=== PATIENT | male | born 1970 | race Caucasian/White ===

== ENCOUNTER 2023-05-04 16:05 | Emergency (ER) | payer OTHER, SELFPAY ==
[2023-05-04 16:18] VITALS: BP 124/88; RESP 16; O2SAT 98; BMI 34.2
--- NOTE | 2023-05-04 16:39 | ED_ITS ---
HPI - General Adult General Chief complaint: Extremity Pain/Injury, Upper Stated complaint: left hand sprain Time Seen by Provider: 05/04/23 16:11 History of Present Illness HPI narrative: This 53-year-old male comes in with left wrist pain and states that he has a pre-existing history of carpal tunnel syndrome. He was moving a couch recently and now has worsening pain in his left wrist. He states that it was keeping him awake last night. Related Data Previous Rx's Medication Instructions Recorded ketorolac 10 mg tablet 10 mg PO Q8H 5 days #15 tabs 05/04/23 methylprednisolone 4 mg tablets in See Rx Instructions PO .COMPLEX 05/04/23 a dose pack (Medrol (Efra)) #21 ea Allergies Allergy/AdvReac Type Severity Reaction Status Date / Time penicillin Allergy Intermediate Hives Uncoded 05/04/23 16:17 Review of Systems Status of ROS: Reports: 10 or more systems reviewed and unremarkable except as noted in History and below Narrative: Constitutional: No fevers, no weight gain or loss. Eyes: No discharge. No vision changes. HENT: No congestion, no sore throat, no ear pain. Cardiovascular: No chest pain, no palpitations. Respiratory: No shortness of breath, no wheezes, no cough. Gastrointestinal: No abdominal pain, no vomiting, no diarrhea. Genitourinary: No dysuria, no hematuria. Musculoskeletal: Decreased range of motion of his left wrist which is not new. No obvious swelling or new external sign of injury. Skin: No rashes, no pruritis. Neurological: No dizziness, weakness, sensory change, speech change. Endo/Heme/Allergies: No bruising or bleeding. No polydipsia. Pysch: no suicidality, no anxiety, no insomnia. All other systems reviewed and are negative. Exam Narrative: Exam Narrative: Constitutional: Well-developed, well-nourished, no acute distress. HEENT: Normocephalic, atraumatic. Neck: Normal range of motion. Nontender. Supple. Heart: Regular. No murmurs. Normal rate. Intact distal pulses. Lungs: Clear to auscultation. No chest discomfort. No wheezes, rhonchi, or rales. Abdomen: Normal bowel sounds. Nontender. No rebound tenderness. Genitalia: Deferred. Back: No midline tenderness. Normal range of motion. Extremities: Left wrist has decreased flexion and and extension. There is diffuse pain but no point tenderness, joint effusion, or sign of deformity. Skin: Intact. No rash. Warm. No erythema or pallor. Neurologic: No altered sensation. No weakness. Alert and oriented. Psychiatric: No suicidality. No anxiety or depression. No insomnia. Nursing notes and vitals signs are reviewed. Const: Vital Signs, click to edit/add: Vital Signs - 24 hr 05/04/23 16:18 Respiratory Rate 16 Blood Pressure [Le ft Upper Arm] 124/88 Pulse Oximetry 98 Oxygen Delivery Me thod Room Air Course Vital Signs Vital signs: Initial Vital Signs Respiratory Rate 16 05/04/23 16:18 Blood Pressure 124/88 05/04/23 16:18 Blood Pressure Mean 100 05/04/23 16:18 Blood Pressure Position Sitting 05/04/23 16:18 Pulse Oximetry 98 05/04/23 16:18 Oxygen Delivery Method Room Air 05/04/23 16:18 Vital Signs Respiratory Rate 16 05/04/23 16:18 Blood Pressure 124/88 05/04/23 16:18 Pulse Oximetry 98 05/04/23 16:18 Oxygen Delivery Method Room Air 05/04/23 16:18 Respiratory Rate 16 05/04/23 16:18 Blood Pressure 124/88 05/04/23 16:18 Pulse Oximetry 98 05/04/23 16:18 Oxygen Delivery Method Room Air 05/04/23 16:18 Medical Decision Making MDM Narrative Medical decision making narrative: This patient has worsening pain in his left wrist after moving a couch recently. He states there was no particular injury event or fall but this strenuous activity cause worsening pain over time. I did discuss the role of x-ray but indicated that this would not likely be helpful study at this time. Patient did receive a wrist splint and prescription for Toradol and Medrol Dosepak. I advised him to follow-up with orthopedic clinic for ongoing management if needed. Discharge Plan Discharge Clinical Impression: Sprain and strain of wrist Patient Disposition: Home, Self-Care Condition: Stable Additional Instructions: Wear wrist splint as needed. Take medication as needed and directed. Follow-up with orthopedic clinic if not improving. Prescriptions: New ketorolac 10 mg tablet 10 mg PO Q8H 5 Days Qty: 15 0RF methylprednisolone [Medrol (Efra)] 4 mg tablets,dose pack See Rx Instructions .ROUTE .COMPLEX Qty: 21 0RF Rx Instructions: orally per package directions Stand Alone Forms: [employer] Info Instructions
== END 2023-05-04 17:03 | disposition home or self-care (01) ==
PROVIDERS: Emergency Provider Emergency Medicine Emergency Medical Services
DX: S63.502A Unspecified sprain of left wrist, initial encounter (principal)
CPT/HCPCS: 29125; 99283; 99284

== ENCOUNTER 2024-05-15 21:42 | Emergency (ER) | payer OTHER, SELFPAY ==
--- OUTSIDE RECORDS SUMMARY | 2024-05-15 21:45 | XMS_ITS | Encounter Summary ---
Author Name [facility] [place] Organization [facility] [place] Address [address] [place] [address] Care Team Providers Care Biofuels Research Scientist Name Role Phone ALOK GUTIERREZ Primary Care Provider Unavailabl e Selected Encounter This section includes the information on record at OR for the Encounter. Date/Time Encounter Type Encounter Description Reason Provider Source Apr 06, 2024 10:30 AM CASE MANAGEMENT HUD/VASH INDIV ICD-10-CM Z59.9 Problem related to housing and economic circumstances, MISBAH Haskins [place] Encounter Template Text not used by [place] Assessments - Encounter Diagnoses This section includes the primary and secondary diagnoses documented for the Encounter. Date/Time Primary/Secondary Diagnosis Diagnosis Name Provider Source Apr 07, 2024 09:45 AM PRIMARY Problem related to housing and economic circumstances, MISBAH Haskins ([facility]) Social History: Smoking Status (Most current) and Tobacco Use (All prior to encounter date) This section includes the most current, and the historical, smoking and tobacco- related health factors from the [place] facility where the Encounter took place. Current Smoking Status This section includes the most current smoking, or tobacco-related health factor, from the [place] facility where the Encounter took place. Date/Time Current Smoking Status Comment Facil ity Oct 28, 2023 09:45 AM VA-TOBACCO DOESNT USE WI 30 MIN WAKEUP [facility] ([facility]) Tobacco Use History This section includes a history of the smoking, or tobacco-related health factors, that were collected on or before the date of the Encounter. The data comes from the [place] facility where the Encounter took place. Date/Time Smoking Status/Tobacco Use Comment F acility Oct 28, 2023 09:45 AM VA-TOBACCO USE 30 YEARS OR MORE [facility] ([facility]) Oct 28, 2023 09:45 AM VA-TOBACCO USE ADVICE [facility] ([facility]) Oct 28, 2023 09:45 AM VA-TOBACCO USE APPLICATIONS DEVELOPMENT CONSULTANT NO [facility] ([facility]) Oct 28, 2023 09:45 AM VA-TOBACCO USE MED NO [facility] ([facility]) Oct 28, 2023 09:45 AM VA-TOBACCO USER EVERY DAY [facility] ([facility]) October 01, 2022 11:00 AM VA-TOBACCO USE 30 YEARS OR MORE [facility] ([facility]) October 01, 2022 11:00 AM VA-TOBACCO USE ADVICE [facility] ([facility]) October 01, 2022 11:00 AM VA-TOBACCO USE APPLICATIONS DEVELOPMENT CONSULTANT NO [facility] ([facility]) October 01, 2022 11:00 AM VA-TOBACCO USE MED NO [facility] ([facility]) October 01, 2022 11:00 AM VA-TOBACCO USE WI 30 MIN OF WAKE UP [facility] ([facility]) October 01, 2022 11:00 AM VA-TOBACCO USER EVERY DAY [facility] ([facility]) Advance Directives: All historical and current Section Date Range: From patient's date of to the date document was created. This section includes ALL of a patient's completed or amended [place] Advance and Rescinded Directives. The entries below indicate that a directive exists for the patient, but an actual copy is not included with this document. The data comes from all [place] facilities. Date Advance Directives Provider Source Mar 05, 2024 ADVANCE DIRECTIVE DISCUSSION MISBAH SILVESTRE ([facility]) September 04, 2022 ADVANCE DIRECTIVE DISCUSSION DARVIN DEE ALL [facility] Encounter Notes: All associated encounter notes This section contains the clinical notes associated to the Encounter. 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 Completed documents were sent to YARED Russell. [place] stated no other concerns at this time. /goldie/ PRAFUL CORONEL, CA[facility] PIG IRON LOADER Signed: 04/07/2024 09:45 Receipt Acknowledged By: 04/17/2024 12:43 /es/ VIK DUTTON CLINICAL PIG IRON LOADER,MISBAH KIMBALL ([facility])
--- OUTSIDE RECORDS SUMMARY | 2024-05-15 21:45 | XMS_ITS | Encounter Summary ---
Author Name [facility] [place] Organization [facility] [place] Address [address] [place] [address] Care Team Providers Care Account Planner Name Role Phone ALOK GUTIERREZ Primary Care Provider Unavailabl e Selected Encounter This section includes the information on record at [place] for the Encounter. Date/Time Encounter Type Encounter Description Reason Pro vider Source Dec 02, 2023 11:00 AM [facility] Encounter Template Text not used by [place] Plan of Treatment: Future Appointments (+ 6 months) and Future Tests (+/- 45 days) The Plan of Treatment section includes future care activities for the patient from all [place] treatmentfacilities. This section includes future appointments and future orders which are active, pending or scheduled. Future Appointments This section includes appointments that were scheduled to occur 6 months from the date of the Encounter, up to a maximum of 20 appointments. The data comes from all [place] treatment facilities. Appointment Date/Time Appointment Type Appointme nt Facility Name Dec 06, 2023 11:27 AM AMBULATORY - NONE [facility] Active, Pending, and Scheduled Orders This section includes a listing of several types of active, pending, and scheduled orders, including clinic medications orders, diagnostic test orders, procedure orders and consult orders; where the start date of the order is 45 days before the date of the Encounter or 45 days after the date of theEncounter. The data comes from all [place] treatment facilities. Test Date/Time Test Type Test Details Facility Name Oct 28, 2023 12:00 AM Laboratory - Chemi stry Order OCCULT BLOOD FIT X1 SCREEN STOOL FECES SP ONCE [facility] ([facility]) Nov 25, 2023 12:00 AM Laboratory - Chemi stry Order BASIC METABOLIC PANEL+MG PLASMA SP ONCE [facility] Nov 25, 2023 12:00 AM Laboratory - Chemi stry Order BNP PLASMA SP ONCE [facility] Social History: Smoking Status (Most current) and Tobacco Use (All prior to encounter date) This section includes the most current, and the historical, smoking and tobacco- related health factors from the [place] facility where the Encounter took place. Current Smoking Status This section includes the most current smoking, or tobacco-related health factor, from the [place] facility where the Encounter took place. Date/Time Current Smoking Status Comment Facil ity Oct 28, 2023 09:45 AM VA-TOBACCO DOESNT USE WI 30 MIN WAKEUP [facility] ([facility]) Tobacco Use History This section includes a history of the smoking, or tobacco-related health factors, that were collected on or before the date of the Encounter. The data comes from the [place] facility where the Encounter took place. 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 This section includes ALL of a patient's completed or amended [place] Advance and Rescinded Directives. The entries below indicate that a directive exists for the patient, but an actual copy is not included with this document. The data comes from all [place] facilities. Date Advance Directives Provider Source Mar 05, 2024 ADVANCE DIRECTIVE DISCUSSION MISBAH SILVESTRE ([facility]) September 04, 2022 ADVANCE DIRECTIVE DISCUSSION DARVIN DEE [facility] Encounter Notes: All associated encounter notes This section contains the clinical notes associated to the Encounter. Date/Time Encounter Note(s) Provider Source Dec 02, 2023 11:17 AM NO SHOW NOTE: LOCAL TITLE: NO SHOW NOTE STANDARD TITLE: NO SHOW NOTE DATE OF NOTE: DEC 02, 2023@11:17 ENTRY DATE: DEC 02, 2023@11:17:31 AUTHOR: RANJIT WU EXP COSIGNER: URGENCY: STATUS: COMPLETED NO SHOW NOTE Has ADDENDA Patient did not appear for scheduled appointment. 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 No contact was made, voice message was left with contact information/return number. Additional phone attempts will be made by bond underwriter at a later time. /goldie/ VIK COOK CLINICAL RETIREMENT MANAGER Signed: 12/02/2023 11:19 Receipt Acknowledged By: 12/05/2023 09:37 /goldie/ [facility], [facility] 12/02/2023 15:47 /david LOVELACE 12/02/2023 ADDENDUM STATUS: COMPLETED Teachers' Aide made two additional phone attempts ([phone], [phone]) to writers phone, both were unsuccesful and voice messages were left. Teachers' Aide also attempted to contact veterans cell phone number listed in CPRS but cell phone is currently disconnected. /VIK Mitchell CLINICAL RETIREMENT MANAGER Signed: 12/02/2023 14:59 12/02/2023 ADDENDUM STATUS: COMPLETED NO SHOW LETTER SENT TO AT ADDRESS ON FILE /david LOVELACE Signed: 12/02/2023 15:48 12/03/2023 ADDENDUM STATUS: COMPLETED Attempted to schedule no show Contact attempt made to 2nd phone attempt: Telephone lm vmail for to call back to [phone] /goldie/ AMANDEEP LOVELACE Signed: 12/03/2023 14:18 12/04/2023 ADDENDUM STATUS: COMPLETED Attempted to schedule no show Contact attempt made to [place] 3rd phone attempt: Telephone lm vmail for to call back to [phone] /goldie/ AMANDEEP LOVELACE Signed: 12/04/2023 15:01 RANJIT WU ([facility])
--- OUTSIDE RECORDS SUMMARY | 2024-05-15 21:45 | XMS_ITS | Encounter Summary ---
Author Name [facility] [place] Organization [facility] [place] Address [address] [place] [address] Care Team Providers Care Personal Lines Agent Name Role Phone ALOK GUTIERREZ Primary Care Provider Unavailabl e Selected Encounter This section includes the information on record at [place] for the Encounter. Date/Time Encounter Type Encounter Description Reason Pro vider Source [facility] Encounter Template Text not used by [place] Advance Directives: All historical and current Section Date Range: From patient's date of to the date document was created. This section includes ALL of a patient's completed or amended [place] Advance and Rescinded Directives. The entries below indicate that a directive exists for the patient, but an actual copy is not included with this document. The data comes from all [place] facilities. Date Advance Directives Provider Source Mar 05, 2024 ADVANCE DIRECTIVE DISCUSSION MISBAH SILVESTRE ([facility]) September 04, 2022 ADVANCE DIRECTIVE DISCUSSION DARVIN DEE [facility]
--- OUTSIDE RECORDS SUMMARY | 2024-05-15 21:45 | XMS_ITS | Encounter Summary ---
Author Name [facility] [place] [facility] [place] [facility] [place] Address [address] [place] [address] Care Team Providers Care Press Operator Meat Name Role Phone ALOK GUTIERREZ Primary Care Provider Unavailabl e Selected Encounter This section includes the information on record at [place] for the Encounter. Date/Time Encounter Type Encounter Description Reason Pro vider Source Oct 28, 2023 09:16 PM Outpatient Encounter PRIMARY CARE/MEDICINE IHE Encounter Template Text not used by [place] Plan of Treatment: Future Appointments (+ 6 months) and Future Tests (+/- 45 days) The Plan of Treatment section includes future care activities for the patient from all [place] treatmentfacilities. This section includes future appointments and future orders which are active, pending or scheduled. Future Appointments This section includes appointments that were scheduled to occur 6 months from the date of the Encounter, up to a maximum of 20 appointments. The data comes from all [place] treatment facilities. Appointment Date/Time Appointment Type Appointme nt Facility Name Nov 17, 2023 11:00 AM AMBULATORY - PSYCHIATRY [facility] ([facility]) Nov 24, 2023 02:00 PM AMBULATORY - [facility]AB [facility] Dec 02, 2023 07:30 AM AMBULATORY - MEDICINE [facility] Dec 02, 2023 08:30 AM AMBULATORY - MEDICINE [facility] Dec 02, 2023 11:00 AM AMBULATORY - PSYCHIATRY [facility] ([facility]) Dec 06, 2023 11:27 AM [facility]ORY - NONE [facility] Active, Pending, and Scheduled Orders This section includes a listing of several types of active, pending, and scheduled orders, including clinic medications orders, diagnostic test orders, procedure orders and consult orders; where the start date of the order is 45 days before the date of the Encounter or 45 days after the date of theEncounter. The data comes from all [place] treatment facilities. Test Date/Time Test Type Test Details Facility Name Oct 28, 2023 12:00 AM Laboratory - Chemi stry Order OCCULT BLOOD FIT X1 SCREEN STOOL FECES SP ONCE [facility] ([facility]) Nov 25, 2023 12:00 AM Laboratory - Chemi stry Order BASIC METABOLIC PANEL+MG PLASMA SP ONCE [facility] Nov 25, 2023 12:00 AM Laboratory - Chemi stry Order BNP PLASMA SP ONCE [facility] Lab Results: +/- 30 days of the encounter This section includes the Chemistry and Hematology Lab Results on record with [place] for the patient. Radiology Reports and Pathology Reports are provided separately, in subsequent sections. Lab Results This section contains the Chemistry/Hematology Results that were resulted 30 days before or 30 daysafter the date of the Encounter. Date/Time Source Result Type Result - Unit Interpretation Reference Range Comment Oct 28, 2023 10:57 AM [facility]) HEMOGLOBIN A1C Specimen Type: BLOOD Comment: Values obtained from A1C measurements can vary. For typical A1C assays, a reported value of 7.0 could actually be between 6.7 and 7.3 if measured by a reference method. A reported value of 9.0 could actually be between 8.7 and 9.3. Ref: http://www.ngsp .org/CAPdata.as p Ordering Provider: ALOK GUTIERREZ Report Released Date/Time: Oct 28, 2023 10:52 AM Reporting Lab: [facility] [id number] Performing Lab: [facility] [id number] HEMOGLOBIN A1C 6.3 H 4.0-6.0 Oct 28, 2023 10:57 AM [facility]) LIPID PANEL,NON-FASTING Specimen Type: PLASMA Comment: Elevated triglyceride result from a non-fasting specimen should be interpreted with caution. A fasting panel is recommended for accurate triglycerides when trigs are >200 from a non-fasting specimen. Ordering Provider: ALOK GUTIERREZ Report Released Date/Time: Oct 28, 2023 10:52 AM Reporting Lab: [facility] [id number] Performing Lab: [facility] [id number] CHOLESTEROL 146 mg/dL <199 .HDL 38 mg/dL L >40 LDL CALCULATION 47 mg/dL <99 VLDL CALCULATION 61 mg/dL H <29 NON HDL CHOLESTEROL 108 mg/dL <129 TRIG(NON FASTING) 306 mg/dL H <149 Oct 28, 2023 10:57 AM [facility] ([facility]) TSH W/REFLEX TO FREE T4 Specimen Type: PLASMA Comment: Elevated triglyceride result from a non-fasting specimen should be interpreted with caution. A fasting panel is recommended for accurate triglycerides when trigs are >200 from a non-fasting specimen. Ordering Provider: ALOK GUTIERREZ Report Released Date/Time: Oct 28, 2023 10:52 AM Reporting Lab: [facility] [id number] Performing Lab: [facility] [id number] TSH 1.05 u[IU]/mL 0.35-4.94 Oct 28, 2023 10:57 AM [facility] ([facility]) BNP Specimen Type: PLASMA No comment entered. Ordering Provider: ALOK GUTIERREZ Report Released Date/Time: Oct 28, 2023 10:52 AM Reporting Lab: [facility] [id number] Performing Lab: [facility] [id number] BNP 24 pg/mL <99 Oct 28, 2023 10:57 AM [facility] ([facility]) COMPREHENSIVE METABOLIC PANEL+MG Specimen Type: PLASMA Comment: Elevated triglyceride result from a non-fasting specimen should be interpreted with caution. A fasting panel is recommended for accurate triglycerides when trigs are >200 from a non-fasting specimen. Ordering Provider: ALOK GUTIERREZ Report Released Date/Time: Oct 28, 2023 10:52 AM Reporting Lab: [facility] [id number] Performing Lab: [facility] [id number] CREATININE 1.1 mg/dL 0.7-1.2 UREA NITROGEN 15 mg/dL 8-26 GLUCOSE 124 mg/dL H 70-100 SODIUM 140 mmol/L 136-145 POTASSIUM 4.3 mmol/L 3.5-5.1 CHLORIDE 104 mmol/L 98-107 CO2 24 mmol/L 22-29 CALCIUM 9.8 mg/dL 8.4-10.2 PROTEIN,TOTAL 7.2 g/dL 6.0-8.3 ALBUMIN 4.4 g/dL 3.5-5.2 BILIRUBIN, TOTAL 0.7 mg/dL 0.2-1.2 MAGNESIUM 2.2 mg/dL 1.6-2.6 ANION GAP 12 mmol/L 5-15 ALKALINE PHOSPHATASE 109 U/L 40-150 ALT/SGPT 24 U/L <55 AST/SGOT 20 U/L <34 .CREAT EGFR(CKD-EPI) 81 >60 Oct 28, 2023 10:57 AM [facility] ([facility]) CBC & DIFF Specimen Type: BLOOD Comment: Automated Differential Performed Ordering Provider: ALOK GUTIERREZ Report Released Date/Time: Oct 28, 2023 10:52 AM Reporting Lab: [facility] [id number] Performing Lab: [facility] [id number] WBC 8.29 10*3/uL 4.0-11.0 RBC 6.34 10*6/uL H 4.6-6.2 HGB 19.9 g/dL H 13.5-17.9 HCT 57.1 H 41-54 MCV 90.1 fL 80-100 MCH 31.4 pg 27-33 MCHC 34.9 g/dL 32.0-37.5 PLT 262 10*3/uL 150-400 MPV 9.7 fL 7.4-10.4 NEUT 54.0 40.0-80.0 LYMPHS 33.4 15.0-45.0 MONO 9.0 2.0-12.0 EOSINO 2.4 0.0-6.0 BASO 0.8 0.0-2.0 RDW 12.7 11.5-14.5 ABS LYMPH 2.77 10*3/uL 1.0-4.0 ABS MONO 0.75 10*3/uL 0.1-1.0 ABS NEUT 4.47 10*3/uL 2.0-7.7 ABS EOS 0.20 10*3/uL 0-0.5 ABS BASO 0.07 10*3/uL 0-0.2 IG(META,MYELO,P RO) 0.4 ABS IMMATURE GRAN 0.03 10*3/uL 0-0.1 Vital Signs: All taken on the encounter date This section contains inpatient and outpatient Vital Signs collected on the date of the Encounter. Date/Time Temperature Pulse Blood Pressure Respiratory Rate SP02 Pain Height Weight Body Mass Index Source Oct 28, 2023 10:07 AM 96.8 77 115/72 16 95 6 71.063 251.2 35 [facility] ([facility]) Social History: Smoking Status (Most current) and Tobacco Use (All prior to encounter date) This section includes the most current, and the historical, smoking and tobacco- related health factors from the [place] facility where the Encounter took place. Current Smoking Status This section includes the most current smoking, or tobacco-related health factor, from the [place] facility where the Encounter took place. Date/Time Current Smoking Status Comment Facil ity Oct 28, 2023 09:45 AM VA-TOBACCO DOESNT USE WI 30 MIN WAKEUP [facility] ([facility]) Tobacco Use History This section includes a history of the smoking, or tobacco-related health factors, that were collected on or before the date of the Encounter. The data comes from the [place] facility where the Encounter took place. Date/Time Smoking Status/Tobacco Use Comment F acility Oct 28, 2023 09:45 AM VA-TOBACCO USE 30 YEARS OR MORE [facility] ([facility]) Oct 28, 2023 09:45 AM VA-TOBACCO USE ADVICE [facility] ([facility]) Oct 28, 2023 09:45 AM VA-TOBACCO USE POST FRAMER NO [facility] ([facility]) Oct 28, 2023 09:45 AM VA-TOBACCO USE MED NO [facility] ([facility]) Oct 28, 2023 09:45 AM VA-TOBACCO USER EVERY DAY [facility] ([facility]) October 01, 2022 11:00 AM VA-TOBACCO USE 30 YEARS OR MORE [facility] ([facility]) October 01, 2022 11:00 AM VA-TOBACCO USE ADVICE [facility] ([facility]) October 01, 2022 11:00 AM VA-TOBACCO USE POST FRAMER NO [facility] ([facility]) October 01, 2022 11:00 AM VA-TOBACCO USE MED NO [facility] ([facility]) October 01, 2022 11:00 AM VA-TOBACCO USE WI 30 MIN OF WAKE UP [facility] ([facility]) October 01, 2022 11:00 AM VA-TOBACCO USER EVERY DAY [facility] ([facility]) Advance Directives: All historical and current Section Date Range: From patient's date of to the date document was created. This section includes ALL of a patient's completed or amended [place] Advance and Rescinded Directives. The entries below indicate that a directive exists for the patient, but an actual copy is not included with this document. The data comes from all [place] facilities. Date Advance Directives Provider Source Mar 05, 2024 ADVANCE DIRECTIVE DISCUSSION [facility] ([facility]) September 04, 2022 ADVANCE DIRECTIVE DISCUSSION DARVIN DEE S [facility] Encounter Notes: All associated encounter notes This section contains the clinical notes associated to the Encounter. Date/Time Encounter Note(s) Provider Source Oct 28, 2023 09:16 PM LETTERS: LOCAL TITLE: FOLLOW UP RESULTS LETTER STANDARD TITLE: LETTERS DATE OF NOTE: OCT 28, 2023@21:16 ENTRY DATE: OCT 28, 2023@21:16:53 AUTHOR: ALOK GUTIERREZ COSIGNER: URGENCY: STATUS: COMPLETED [facility] [address] [place] [address] OCT 28, 2023 MAR[place] ANTONIO CHIRINOS [facility] [place] [address] [facility] [address] Dear [place]: You should be receiving another letter with the results of the tests you had done at the [facility]. I have reviewed the results of your recent testing. - Cholesterol Tests LDL CALCULATION 47 (10/28/23) (prefer less than 100) - Complete Blood Count (red/white blood cell counts and platelets) White count: WBC 8.29 (10/28/23) (normal is 4.0-11.0) Hemoglobin: HGB 19.9 H (10/28/23) (normal Male is 13.5-17.9; normal female is 11.5-16) Platelets: PLT 262 (10/28/23) (normal is 150-400) - Electrolytes including sodium and potassium SODIUM 140 (10/28/23) (normal is 137-144) POTASSIUM 4.3 (10/28/23) (normal is 3.5-5.1) CREATININE 1.1 (10/28/23) (normal male is 0.7-1.2; normal female is 0.5-1.0) UREA NITROGEN 15 (10/28/23) (normal male is 8-26; normal female is 7-20) EGFR (12/06) 07/18/2020@1539 103 CREATININE EGFR (CKD-EPI) 10/28/2023@1057 81 (normal is >/=60) CALCIUM 9.8 (10/28/23) (normal is 8.4-10.2) GLUCOSE 124 H (10/28/23) (normal is 70-105) MAGNESIUM 2.2 (10/28/23) (normal is 1.6-2.6) - Liver function Tests AST/SGOT 20 (10/28/23) (normal is 5-34) ALT/SGPT 24 (10/28/23) (normal is </= 55) ALBUMIN 4.4 (10/28/23) (normal is 3.4-5.0) ALK PHOSPHATASE 109 (10/28/23) (normal is 40-150) - Glycosylated Hemoglobin (good diabetic control if less than 7.0) HEMOGLOBIN A1C 6.3 H (10/28/23) (normal range is 4.0-6.0) - Thyroid Function: TSH 1.05 (10/28/23) (normal 0.3-5.0) If you have further questions or problems, please contact the call center at [phone] to speak with a nurse or leave me a message Sincerely, ALOK Hodge ([facility])
--- OUTSIDE RECORDS SUMMARY | 2024-05-15 21:45 | XMS_ITS | Encounter Summary ---
Author Name [facility] [place] Organization [facility] [place] Address [address] [place] [address] Care Team Providers Care Converter Operator Name Role Phone ALOK GUTIERREZ Primary Care Provider Unavailabl e Selected Encounter This section includes the information on record at [place] for the Encounter. Date/Time Encounter Type Encounter Description Reason Provider Source Oct 28, 2023 12:01 PM PSYTX W PT 30 MINUTES [facility] INDIV ICD-10-CM Z71.9 Counseling, unspecified RANJIT WU Angelina Encounter Template Text not used by [place] Assessments - Encounter Diagnoses This section includes the primary and secondary diagnoses documented for the Encounter. Date/Time Primary/Secondary Diagnosis Diagnosis Name Provider Source Oct 28, 2023 12:06 PM PRIMARY Counseling, unspecified RANJIT WU [facility] ([facility]) Plan of Treatment: Future Appointments (+ 6 months) and Future Tests (+/- 45 days) The Plan of Treatment section includes future care activities for the patient from all [place] treatmentfacilities. This section includes future appointments and future orders which are active, pending or scheduled. Future Appointments This section includes appointments that were scheduled to occur 6 months from the date of the Encounter, up to a maximum of 20 appointments. The data comes from all [place] treatment facilities. Appointment Date/Time Appointment Type Appointme nt Facility Name Nov 17, 2023 11:00 AM AMBULATORY - PSYCHIATRY [facility] ([facility]) Nov 24, 2023 02:00 PM AMBULATORY - REHAB MEDICIN E [facility] Dec 02, 2023 07:30 AM AMBULATORY - MEDICINE [facility] Dec 02, 2023 08:30 AM AMBULATORY - MEDICINE [facility] Dec 02, 2023 11:00 AM AMBULATORY - PSYCHIATRY [facility] ([facility]) Dec 06, 2023 11:27 AM AMBULATORY - NONE [facility] Active, Pending, and Scheduled Orders This section includes a listing of several types of active, pending, and scheduled orders, including clinic medications orders, diagnostic test orders, procedure orders and consult orders; where the start date of the order is 45 days before the date of the Encounter or 45 days after the date of theEncounter. The data comes from all [place] treatment facilities. Test Date/Time Test Type Test Details Facility Name Oct 28, 2023 12:00 AM Laboratory - Chemi stry Order OCCULT BLOOD FIT X1 SCREEN STOOL FECES SP ONCE [facility] ([facility]) Nov 25, 2023 12:00 AM Laboratory - Chemi stry Order BASIC METABOLIC PANEL+MG PLASMA SP ONCE [facility] Nov 25, 2023 12:00 AM Laboratory - Chemi stry Order BNP PLASMA SP ONCE [facility] Lab Results: +/- 30 days of the encounter This section includes the Chemistry and Hematology Lab Results on record with [place] for the patient. Radiology Reports and Pathology Reports are provided separately, in subsequent sections. Lab Results This section contains the Chemistry/Hematology Results that were resulted 30 days before or 30 daysafter the date of the Encounter. Date/Time Source Result Type Result - Unit Interpretation Reference Range Comment Oct 28, 2023 10:57 AM [facility] ([facility]) HEMOGLOBIN A1C Specimen Type: BLOOD Comment: Values [...] Oct 28, 2023 10:52 AM Reporting Lab: [facility] [id number] Performing Lab: [facility] [id number] HEMOGLOBIN A1C 6.3 H 4.0-6.0 Oct 28, 2023 10:57 AM [facility] ([facility]) TSH W/REFLEX TO FREE T4 Specimen Type: PLASMA Comment: Elevated triglyceride result from a non-fasting specimen should be interpreted with caution. A fasting panel is recommended for accurate triglycerides when trigs are >200 from a non-fasting specimen. Ordering Provider: ALOK GUTIERREZ Report Released Date/Time: Oct 28, 2023 10:52 AM Reporting Lab: [facility] [id number] Performing Lab: [facility] [id number] TSH 1.05 u[IU]/mL 0.35-4.94 Oct 28, 2023 10:57 AM [facility]) LIPID PANEL,NON-FASTING Specimen Type: PLASMA Comment: Elevated triglyceride result from a non-fasting specimen should be interpreted with caution. A fasting panel is recommended for accurate triglycerides when trigs are >200 from a non-fasting specimen. Ordering Provider: ALOK GUTIERREZ Report Released Date/Time: Oct 28, 2023 10:52 AM Reporting Lab: [facility] [id number] Performing Lab: [facility] [id number] CHOLESTEROL 146 mg/dL <199 .HDL 38 mg/dL L >40 LDL CALCULATION 47 mg/dL <99 VLDL CALCULATION 61 mg/dL H <29 NON HDL CHOLESTEROL 108 mg/dL <129 TRIG(NON FASTING) 306 mg/dL H <149 Oct 28, 2023 10:57 AM [facility] ([facility]) BNP Specimen Type: PLASMA No comment entered. Ordering Provider: ALOK GUTIERREZ Report Released Date/Time: Oct 28, 2023 10:52 AM Reporting Lab: [facility] [id number] Performing Lab: [facility] [id number] BNP 24 pg/mL <99 Oct 28, 2023 10:57 AM [facility] ([facility]) CBC & DIFF Specimen Type: BLOOD Comment: Automated Differential Performed Ordering Provider: ALOK GUTIERREZ Report Released Date/Time: Oct 28, 2023 10:52 AM Reporting Lab: [facility] [id number] Performing Lab: [facility] [id number] WBC 8.29 10*3/uL 4.0-11.0 RBC 6.34 10*6/uL [...] 0.4 ABS IMMATURE GRAN 0.03 10*3/uL 0-0.1 Oct 28, 2023 10:57 AM [facility] ([facility]) COMPREHENSIVE METABOLIC PANEL+MG Specimen Type: PLASMA Comment: Elevated triglyceride result from a non-fasting specimen should be interpreted with caution. A fasting panel is recommended for accurate triglycerides when trigs are >200 from a non-fasting specimen. Ordering Provider: ALOK GUTIERREZ Report Released Date/Time: Oct 28, 2023 10:52 AM Reporting Lab: [facility] [id number] Performing Lab: [facility] [address] CREATININE 1.1 mg/dL 0.7-1.2 UREA NITROGEN 15 [...] 20 U/L <34 .CREAT EGFR(CKD-EPI) 81 >60 Vital Signs: All taken on the encounter date This section contains inpatient and outpatient Vital Signs collected on the date of the Encounter. Date/Time Temperature Pulse Blood Pressure Respiratory Rate SP02 Pain Height Weight Body Mass Index Source Oct 28, 2023 10:07 AM 96.8 77 115/72 16 95 6 71.063 251.2 35 [facility] ([facility]) Social History: Smoking Status (Most current) and Tobacco Use (All prior to encounter date) This section includes the most current, and the historical, smoking and tobacco- related health factors from the [place] facility where the Encounter took place. Current Smoking Status This section includes the most current smoking, or tobacco-related health factor, from the [place] facility where the Encounter took place. Date/Time Current Smoking Status Comment Ramos itdanielle Oct 28, 2023 09:45 AM VA-TOBACCO DOESNT USE WI 30 MIN WAKEUP [facility] ([facility]) Tobacco Use History This section includes a history of the smoking, or tobacco-related health factors, that were collected on or before the date of the Encounter. The data comes from the [place] facility where the Encounter took place. Date/Time Smoking Status/Tobacco Use Comment F acility Oct 28, 2023 09:45 AM VA-TOBACCO USE 30 YEARS OR MORE [facility] ([facility]) Oct 28, 2023 09:45 AM VA-TOBACCO USE ADVICE [facility] ([facility]) Oct 28, 2023 09:45 AM VA-TOBACCO USE BUYER INTERN NO [facility] ([facility]) Oct 28, 2023 09:45 AM VA-TOBACCO USE MED NO [facility] ([facility]) Oct 28, 2023 09:45 AM VA-TOBACCO USER EVERY DAY [facility] ([facility]) October 01, 2022 11:00 AM VA-TOBACCO USE 30 YEARS OR MORE [facility] ([facility]) October 01, 2022 11:00 AM VA-TOBACCO USE ADVICE [facility] ([facility]) October 01, 2022 11:00 AM VA-TOBACCO USE BUYER INTERN NO [facility] ([facility]) October 01, 2022 11:00 AM VA-TOBACCO USE MED NO [facility] ([facility]) October 01, 2022 11:00 AM VA-TOBACCO USE WI 30 MIN OF WAKE UP [facility] ([facility]) October 01, 2022 11:00 AM VA-TOBACCO USER EVERY DAY [facility] ([facility]) Advance Directives: All historical and current Section Date Range: From patient's date of to the date document was created. This section includes ALL of a patient's completed or amended [place] Advance and Rescinded Directives. The entries below indicate that a directive exists for the patient, but an actual copy is not included with this document. The data comes from all [place] facilities. Date Advance Directives Provider Source Mar 05, 2024 ADVANCE DIRECTIVE DISCUSSION [facility] ([facility]) September 04, 2022 ADVANCE DIRECTIVE DISCUSSION DARVIN DEE [facility] Encounter Notes: All associated encounter notes This section contains the clinical notes associated to the Encounter. Date/Time Encounter Note(s) Provider Source Oct 28, 2023 12:02 PM [facility] NOTE: LOCAL TITLE: PRIMARY CARE-MH INTEGRATION TRIAGE STANDARD TITLE: MENTAL HEALTH [facility] M INTERDISCIPLINARY NOTE DATE OF NOTE: OCT 28, 2023@12:02 ENTRY DATE: OCT 28, 2023@12:02:04 AUTHOR: RANJIT WU EXP COSIGNER: URGENCY: STATUS: COMPLETED PC/MH Individual Handoff Note - Date of Service: 10/27/2024 Type of Service: Individual Length of Service: 16 Minutes Collateral contact: CPRS, PACT Client's Diagnosis: unspecified counseling Scope of Service/Major Themes/[place]aves Issues: The purpose of this encounter was to assess for emergent needs and safety concerns. A secondary goal was to determine the most appropriate treatment options within [facility] and/or community resources as indicated upon assessment. [place] was informed of [facility] program services to include; role of absence management consultant, length and time of visits, type of follow-up which might occur, documentation of discuss into the medical record, feedback to primary care provider and reporting obligations. Client's Response/Verbal Exchange: was a warm hand off from Primary Care Provider due to MH concerns and cognitive test. was seen today for a Primary Care appointment with PACT Team Rajesh. The completed MOCA with this loan underwriter. Result is submitted in CPRS for PCP. reports he is currently living in RV home with and wifes adopted brother (52 years old), who he described as handicap. reports he has had trouble with low and depressed mood. [place] reports cry spells, lack of energy (Due to heart problems), difficulty with focus, and guilt. Due to limited time, and loan underwriter could not complete full functional assessment. denied any immediate needs at this time or concerns with SI or HI. agreed to schedule a f/u appt with loan underwriter to complete functional assessment. was made aware of [facility] services, walk-in availability and provided with direct number to [facility] Healthcare Technician for future needs. Provider offered brief psychoeducation related to empirically supported treatments and [facility] services. [place] was alert and oriented to person, place, time. Mood was euthymic, affect was congruent. Speech was within normal limits, thought process was coherent and goal-directed. No delusions were elicited and there was no evidence of internal stimuli. [place] denied current suicidal ideation or homicidal ideation, plan and intent. Service Plan: 1. will follow-up with [facility]. RTC submitted for f/u. 2. Veterans care to be managed in Primary Care Clinic with support of [facility]. 3. was educated on ability to walk into the [facility] for non-urgent mental health and/or medical assistance from 8am to 4 PM.OR [place] directed to report to the nearest emergency room for urgent mental health or medical issues. 4. was educated on the Veterans Crisis Line for assistance with triaging mental health concerns and encouraged the use of [facility] emergency [facility] for crisis situations. /goldie/ [employer] Signed: 10/28/2023 12:06 RANJIT WU ([facility])
--- OUTSIDE RECORDS SUMMARY | 2024-05-15 21:45 | XMS_ITS | Encounter Summary ---
Author Name [facility] [place] [facility] [place] Address [address] [place] [address] Care Team Providers [facility] Technician Name Role Phone ALOK GUTIERREZ Primary Care Provider Unavailabl e Selected Encounter This section includes the information on record at [place] for the Encounter. Date/Time Encounter Type Encounter Description Reason Pro vider Source Nov 24, 2023 02:00 PM Outpatient Encounter NEUROLOGY I[facility] Encounter Template Text not used by [place] Plan of Treatment: Future Appointments (+ 6 months) and Future Tests (+/- 45 days) The Plan of Treatment section includes future care activities for the patient from all [place] treatmentfacilities. This section includes future appointments and future orders which are active, pending or scheduled. Future Appointments This section includes appointments that were scheduled to occur 6 months from the date of the Encounter, up to a maximum of 20 appointments. The data comes from all [place] treatment facilities. Appointment Date/Time Appointment Type Appointme nt Facility Name Dec 02, 2023 07:30 AM AMBULATORY - MEDICINE [facility] Dec 02, 2023 08:30 AM AMBULATORY - MEDICINE [facility] Dec 02, 2023 11:00 AM AMBULATORY - PSYCHIATRY [facility] ([facility]) Dec 06, 2023 11:27 AM AMBULATORY - NONE [facility] Active, Pending, and Scheduled Orders This section includes a listing of several types of active, pending, and scheduled orders, including clinic medications orders, diagnostic test orders, procedure orders and consult orders; where the start date of the order is 45 days before the date of the Encounter or 45 days after the date of theEncounter. The data comes from all [facility]. Test Date/Time Test Type Test Details Facility Name Oct 28, 2023 12:00 AM Laboratory - Chemi stry Order OCCULT BLOOD FIT X1 SCREEN STOOL FECES SP ONCE [facility]) Nov 25, 2023 12:00 AM Laboratory - Chemi stry Order BASIC METABOLIC PANEL+MG PLASMA SP ONCE [facility] Nov 25, 2023 12:00 AM Laboratory - Chemi stry Order BNP PLASMA SP ON[facility] Lab Results: +/- 30 days of the encounter This section includes the Chemistry and Hematology Lab Results on record with [place] for the patient. Radiology Reports and Pathology Reports are provided separately, in subsequent sections. Lab Results This section contains the Chemistry/Hematology Results that were resulted 30 days before or 30 daysafter the date of the Encounter. Date/Time Source Result Type Result - Unit Interpretation Reference Range Comment Oct 28, 2023 10:57 AM [facility]) HEMOGLOBIN A1C Specimen Type: BLOOD Comment: [...] Oct 28, 2023 10:52 AM Reporting Lab: [facility] [id number] Performing Lab: [facility] [id number] HEMOGLOBIN A1C 6.3 H 4.0-6.0 Oct 28, 2023 10:57 AM [facility] ([facility]) TSH W/REFLEX TO FREE T4 Specimen Type: PLASMA Comment: Elevated triglyceride result from a non-fasting specimen should be interpreted with caution. A fasting panel is recommended for accurate triglycerides when trigs are >200 from a non-fasting specimen. Ordering Provider: ALOK GUTIERREZ Report Released Date/Time: Oct 28, 2023 10:52 AM Reporting Lab: [facility] [id number] Performing Lab: [facility] [id number] TSH 1.05 u[IU]/mL 0.35-4.94 Oct 28, 2023 10:57 AM [facility] ([facility]) LIPID PANEL,NON-FASTING Specimen Type: PLASMA Comment: Elevated triglyceride result from a non-fasting specimen should be interpreted with caution. A fasting panel is recommended for accurate triglycerides when trigs are >200 from a non-fasting specimen. Ordering Provider: ALOK GUTIERREZ Report Released Date/Time: Oct 28, 2023 10:52 AM Reporting Lab: [facility] [id number] Performing Lab: [facility] [id number] CHOLESTEROL 146 mg/dL <199 .HDL 38 mg/dL L >40 LDL CALCULATION 47 mg/dL <99 VLDL CALCULATION 61 mg/dL H <29 NON HDL CHOLESTEROL 108 mg/dL <129 TRIG(NON FASTING) 306 mg/dL H <149 Oct 28, 2023 10:57 AM [facility] ([facility]) BNP Specimen Type: PLASMA No comment entered. Ordering Provider: ALOK GUTIERREZ Report Released Date/Time: Oct 28, 2023 10:52 AM Reporting Lab: [facility] [id number] Performing Lab: [facility] [id number] BNP 24 pg/mL <99 Oct 28, 2023 10:57 AM [facility] ([facility]) COMPREHENSIVE METABOLIC PANEL+MG Specimen Type: PLASMA Comment: Elevated triglyceride result from a non-fasting specimen should be interpreted with caution. A fasting panel is recommended for accurate triglycerides when trigs are >200 from a non-fasting specimen. Ordering Provider: ALOK GUTIERREZ Report Released Date/Time: Oct 28, 2023 10:52 AM Reporting Lab: [facility] [id number] Performing Lab: [facility] [id number] CREATININE 1.1 mg/dL 0.7-1.2 UREA NITROGEN 15 [...] 81 >60 Oct 28, 2023 10:57 AM [facility] ([facility]) CBC & DIFF Specimen Type: BLOOD Comment: Automated Differential Performed Ordering Provider: ALOK GUTIERREZ Report Released Date/Time: Oct 28, 2023 10:52 AM Reporting Lab: [facility] [id number] Performing Lab: [facility] [id number] WBC 8.29 10*3/uL 4.0-11.0 RBC 6.34 10*6/uL [...] 0.4 ABS IMMATURE GRAN 0.03 10*3/uL 0-0.1 Advance Directives: All historical and current Section Date Range: From patient's date of to the date document was created. This section includes ALL of a patient's completed or amended [place] Advance and Rescinded Directives. The entries below indicate that a directive exists for the patient, but an actual copy is not included with this document. The data comes from all [place] facilities. Date Advance Directives Provider Source Mar 05, 2024 ADVANCE DIRECTIVE DISCUSSION MISBA[facility] SILVESTRE ([facility]) September 04, 2022 ADVANCE DIRECTIVE DISCUSSION [facility] Encounter Notes: All associated encounter notes This section contains the clinical notes associated to the Encounter. Date/Time Encounter Note(s) Provider Source Nov 24, 2023 02:45 PM NO SHOW NOTE: LOCAL TITLE: NO SHOW/CANCELLATION CLINIC NOTE STANDARD TITLE: NO SHOW NOTE DATE OF NOTE: NOV 24, 2023@14:45 ENTRY DATE: NOV 24, 2023@14:45:14 AUTHOR: APOLINAR JIMENEZ EXP COSIGNER: URGENCY: STATUS: COMPLETED [place] not seen for scheduled appointment due to: No Show /goldie/ APOLINAR JIMENEZ Signed: 11/24/2023 14:46 APOLINAR JIMENEZ [facility]
--- OUTSIDE RECORDS SUMMARY | 2024-05-15 21:45 | XMS_ITS | Continuity of Care Document ---
Author Name [facility] Organization [facility] Care Team Providers Care Dynamo Tender Name Role Phone [facility] Unavailable Unavailable Problems Combined list of problems from Department of Defense and Veterans Affairs facilities. It does not include entries that were removed or entered in error. Problem Status Onset Date Problem Type Date of Resolution Comments Source CHF - Congestive Heart Failure ([facility] [id number]) Active Condition September 06, 2021 Entered By: INDERJIT NOWAK Comment: EF 30% , LV hypokinesis ECHO 08/30/21 [facility] ([facility]) HTN - Hypertension ([facility] [id number]) Active Condition [facility] ([facility]) Multiple premature ventricular complexes Active Condition [facility] Muscle fasciculation Active Condition Jul 18, 2020 Entered By: INDERJIT NOWAK Comment: lt side of face [facility] ([facility]) Nicotine dependence Active Condition [facility] ([facility]) Obesity Active Condition [facility] ([facility]) Sleep apnea Active Condition [facility] ([facility]) Thoracic outlet syndrome Active Condition September 06, 2021 Entered By: INDERJIT NOWAK Comment: Had DVT in rt upper extremity in 2012 treated with coumudin [facility] ([facility]) Tobacco use Active Condition Jul 18, 2020 Entered By: INDERJIT NOWAK Comment: 1 can /wk [facility] ([facility]) Varicose veins Active Condition September Entered By: INDERJIT NOWAK Comment: Rt upper extremity [facility] ([facility]) Vertebrobasilar artery syndrome Active Condition September 06, 2021 Entered By: INDERJIT NOWAK Comment: 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 Was recommended to get Botox inj. [facility] ([facility]) Diagnosis: ICD-10-CM Z72.0 Tobacco use Active Diagnosis [facility] ([facility]) Diagnosis: ICD-10-CM Z59.00 Homelessness unspecified Active Diagnosis [facility] ([facility]) Diagnosis: ICD-10-CM Z59.9 Problem related to housing and economic circumstances, unsp Active Diagnosis [facility] ([facility]) Diagnosis: ICD-10-CM F32.89 Other specified depressive episodes Active Diagnosis [facility] ([facility]) Diagnosis: ICD-10-CM Z71.9 Counseling, unspecified [facility] Diagnosis: ICD-10-CM Z00.00 Encntr for general adult medical exam w/o abnormal findings Active Diagnosis [facility] ([facility]) Diagnosis: ICD-10-CM I50.22 Chronic systolic (congestive) heart failure Active Diagnosis [facility] Diagnosis: ICD-10-CM Z13.6 Encounter for screening for cardiovascular disorders Active Diagnosis [facility] Diagnosis: ICD-10-CM I50.9 Heart failure, unspecified Active Diagnosis [facility] Diagnosis: ICD-10-CM I50.20 Unspecified systolic (congestive) heart failure Active Diagnosis [facility] Diagnosis: ICD-10-CM Z59.01 Sheltered homelessness Active Diagnosis [facility] Diagnosis: ICD-10-CM Z59.02 Unsheltered homelessness Active Diagnosis [facility] Diagnosis: ICD-10-CM F41.9 Anxiety disorder, unspecified Active Diagnosis [facility] Medications Combined list of outpatient medications from Department of Defense and Veterans Affairs facilities.Medications provided include 1) outpatient medications from the last 15 months, and 2) patient-reported medications. Medication Details Route Status Patient Instructions Prescription Expires Prescription Number Last Dispense Date Ordering Provider Order Date Order Qty Source ACETAMINOPH EN 500MG TAB TAKE TWO TABLETS BY MOUTH EVERY 8 HOURS NEEDED FOR SHOULDER PAIN *NOT TO EXCEED 4000MG IN 24 HOURS FROM ALL SOURCES* ORAL 10/02/2023 [id number] VIRA GUTIERREZ 2022 [address] [facility]) ASPIRIN 81MG TAB,CHEWABL E CHEW ONE TABLET BY MOUTH EVERY DAY FOR HEART DISEASE ORAL ACTIVE 09/01/2024 [id number] 4 ME CALLIE NGISTU A 2023 108 [place] [facility] ATOMOXETINE 40MG CAP TAKE ONE CAPSULE BY MOUTH EVERY DAY FOR ATTENTIO N ORAL ACTIVE 10/28/2024 [id number] VIRA GUTIERREZ 2023 30 [facility]) ATORVASTATI N CA 20MG TAB TAKE ONE TABLET BY MOUTH EVERY DAY FOR CHOLESTE ROL ORAL ACTIVE 10/17/2024 [id number] 4 VIRA GUTIERREZ 2023 90 [facility]) ATORVASTATI N CA 20MG TAB TAKE ONE TABLET BY MOUTH EVERY DAY FOR CHOLESTE ROL ORAL DISCONT INUED 10/02/2023 [id number] 4 VIRA GUTIERREZ E 2022 90 [facility]) EMPAGLIFLOZ IN 25MG TAB TAKE ONE-HALF TABLET BY MOUTH EVERY DAY FOR HEART FAILURE ORAL ACTIVE 06/25/2024 [id number] 4 [place] NGA A 2023 45 [facility] METOPROLOL SUCCINATE 200MG TAB,SA TAKE ONE TABLET BY MOUTH EVERY DAY FOR HEART FAILURE ORAL 04/17/2024 [id number] 4 [place] NGA A 2022 90 [facility] SACUBITRIL 49MG/VALSAR POLLOCK 51MG TAB TAKE 1 TABLET BY MOUTH TWICE A DAY FOR HEART FAILURE ORAL ACTIVE 10/08/2024 [id number] 4 VIRA GUTIERREZ E 2023 180 [facility]) SILDENAFIL CITRATE 25MG TAB TAKE ONE TABLET BY MOUTH ONCE NEEDED FOR ERECTILE DYSFUNCT ION ORAL ACTIVE 10/28/2024 [id number] 4 VIRA GUTIERREZ E 2023 18 [facility]) SPIRONOLACT ONE 25MG TAB TAKE TWO TABLETS BY MOUTH EVERY DAY FOR HEART FAILURE ORAL 12/13/2023 [id number] [place] NGA A 2022 180 [facility] TORSEMIDE 20MG TAB TAKE ONE TABLET BY MOUTH EVERY DAY FOR EXCESS FLUID ORAL ACTIVE 12/18/2024 [id number] 4 VIRA GUTIERREZ E 2023 90 [facility] TORSEMIDE 20MG TAB TAKE ONE TABLET BY MOUTH EVERY DAY FOR EXCESS FLUID ORAL DISCONT INUED 12/13/2023 [id number] ELIZABETH URBAN NGA A 2022 90 [facility] Allergies, Adverse Reactions, Alerts Combined list of allergies from Department of Defense and [facility] facilities. It does not include entries that were removed or entered in error. Substance Category Reaction Severity Reaction type Status Date Reported Comments Source CONTRAST MEDIA Propensity to adverse reactions to drug (finding) Lip swelling active 2 [facility] PENICILLIN Propensity to adverse reactions to drug (finding) Eruption active 2 [facility] Immunizations Combined list of available immunizations from the Department of Defense and Veterans Affairs facilities. Immunization Series Date Given Administered By Site Reaction Lot Number CVX Code Drug Audit Lead Status Comments Source TDAP 2016 115 complet ed [facility] TDAP 2010 115 complet ed [facility] TDAP 2006 115 complet ed [facility] Results Combined list of recent chemistry, hematology and other laboratory results from Department of Defense and Veterans Affairs, ranging from 15 months to all on record, depending upon the facility. Order Name Results Value Reference Range Date Interpretation Specimen Comments Source HEMOGLOBI N A1C HEMOGLOBIN A1C/HEMOGLO BIN.TOTAL IN BLOOD 6.3 4.0 - 6.0 10/27 H Specimen Type: BLOOD Comment: Values obtained from A1C measurement s can vary. For typical A1C assays, a reported value of 7.0 could actually be between 6.7 and 7.3 if measured by a reference method. A reported value of 9.0 could actually be between 8.7 and 9.3. Ref: http://www. ngsp.org/[place] Pdata.asp Ordering Provider: ALOK GUTIERREZ Report Released Date/Time: Oct 28, 2023 10:52 AM Reporting Lab: [facility] [phone] Performing Lab: [facility] [address] [facility]) TSH W/REFLEX TO FREE T4 THYROTROPIN [UNITS/VOLU ME] IN SERUM OR PLASMA 1.05 u[IU]/ mL 0.35 - 4.94 10/27 Specimen Type: PLASMA Comment: Elevated triglycerid e result from a non-fasting specimen should be interpreted with caution. A fasting panel is recommended for accurate triglycerid es when trigs are >200 from a non-fasting specimen. Ordering Provider: ALOK GUTIERREZ Report Released Date/Time: Oct 28, 2023 10:52 AM Reporting Lab: [facility] [phone] Performing Lab: [facility] [address] [facility] ([facility]) LIPID PANEL,NON -FASTING CHOLESTEROL [MASS/VOLUM E] IN SERUM OR PLASMA 146 mg/dL <199 - 199 10/27 Specimen Type: PLASMA Comment: Elevated triglycerid e result from a non-fasting specimen should be interpreted with caution. A fasting panel is recommended for accurate triglycerid es when trigs are >200 from a non-fasting specimen. Ordering Provider: ALOK GUTIERREZ Report Released Date/Time: Oct 28, 2023 10:52 AM Reporting Lab: [facility] [address] Performing Lab: [facility] [address] [facility] ([facility]) LIPID PANEL,NON -FASTING CHOLESTEROL IN HDL [MASS/VOLUM E] IN SERUM OR PLASMA 38 mg/dL 40 10/27 L Specimen Type: PLASMA Comment: Elevated triglycerid e result from a non-fasting specimen should be interpreted with caution. A fasting panel is recommended for accurate triglycerid es when trigs are >200 from a non-fasting specimen. Ordering Provider: ALOK GUTIERREZ Report Released Date/Time: Oct 28, 2023 10:52 AM Reporting Lab: [facility] [address] Performing Lab: [facility] [address] [facility] ([facility]) LIPID PANEL,NON -FASTING CHOLESTEROL IN LDL [MASS/VOLUM E] IN SERUM OR PLASMA BY CALCULATION 47 mg/dL <99 - 99 10/27 Specimen Type: PLASMA Comment: Elevated triglycerid e result from a non-fasting specimen should be interpreted with caution. A fasting panel is recommended for accurate triglycerid es when trigs are >200 from a non-fasting specimen. Ordering Provider: ALOK GUTIERREZ Report Released Date/Time: Oct 28, 2023 10:52 AM Reporting Lab: [facility] [phone] Performing Lab: [facility] [address] [facility] ([facility]) LIPID PANEL,NON -FASTING CHOLESTEROL IN VLDL [MASS/VOLUM E] IN SERUM OR PLASMA BY CALCULATION 61 mg/dL <29 - 29 10/27 H Specimen Type: PLASMA Comment: Elevated triglycerid e result from a non-fasting specimen should be interpreted with caution. A fasting panel is recommended for accurate triglycerid es when trigs are >200 from a non-fasting specimen. Ordering Provider: ALOK GUTIERREZ Report Released Date/Time: Oct 28, 2023 10:52 AM Reporting Lab: [address] Performing Lab: [address] ([facility]) LIPID PANEL,NON -FASTING CHOLESTEROL NON HDL [MASS/VOLUM E] IN SERUM OR PLASMA 108 mg/dL <129 - 129 10/27 Specimen Type: PLASMA Comment: Elevated triglycerid e result from a non-fasting specimen should be interpreted with caution. A fasting panel is recommended for accurate triglycerid es when trigs are >200 from a non-fasting specimen. Ordering Provider: ALOK GUTIERREZ Report Released Date/Time: Oct 28, 2023 10:52 AM Reporting Lab: [place] [phone] Performing Lab: [address] ([facility]) LIPID PANEL,NON -FASTING TRIGLYCERID E [MASS/VOLUM E] IN SERUM OR PLASMA 306 mg/dL <149 - 149 10/27 H Specimen Type: PLASMA Comment: Elevated triglycerid e result from a non-fasting specimen should be interpreted with caution. A fasting panel is recommended for accurate triglycerid es when trigs are >200 from a non-fasting specimen. Ordering Provider: ALOK GUTIERREZ Report Released Date/Time: Oct 28, 2023 10:52 AM Reporting Lab: [place] [phone] Performing Lab: [address] ([facility]) BNP NATRIURETIC PEPTIDE B [MASS/VOLUM E] IN SERUM OR PLASMA 24 pg/mL <99 - 99 10/27 Specimen Type: PLASMA No comment entered. Ordering Provider: ALOK GUTIERREZ Report Released Date/Time: Oct 28, 2023 10:52 AM Reporting Lab: [address] Performing Lab: [address] ([facility]) COMPREHEN SIVE METABOLIC PANEL+MG CREATININE [MASS/VOLUM E] IN SERUM OR PLASMA 1.1 mg/dL 0.7 - 1.2 10/27 Specimen Type: PLASMA Comment: Elevated triglycerid e result from a non-fasting specimen should be interpreted with caution. A fasting panel is recommended for accurate triglycerid es when trigs are >200 from a non-fasting specimen. Ordering Provider: ALOK GUTIERREZ Report Released Date/Time: Oct 28, 2023 10:52 AM Reporting Lab: [facility] [address] Performing Lab: [facility] [address] [facility] ([facility]) COMPREHEN SIVE METABOLIC PANEL+MG UREA NITROGEN [MASS/VOLUM E] IN SERUM OR PLASMA 15 mg/dL 8 - 26 10/27 Specimen Type: PLASMA Comment: Elevated triglycerid e result from a non-fasting specimen should be interpreted with caution. A fasting panel is recommended for accurate triglycerid es when trigs are >200 from a non-fasting specimen. Ordering Provider: ALOK GUTIERREZ Report Released Date/Time: Oct 28, 2023 10:52 AM Reporting Lab: [facility] [address] Performing Lab: [facility] [address] [facility] ([facility]) COMPREHEN SIVE METABOLIC PANEL+MG GLUCOSE [MASS/VOLUM E] IN SERUM OR PLASMA 124 mg/dL 70 - 100 10/27 H Specimen Type: PLASMA Comment: Elevated triglycerid e result from a non-fasting specimen should be interpreted with caution. A fasting panel is recommended for accurate triglycerid es when trigs are >200 from a non-fasting specimen. Ordering Provider: ALOK GUTIERREZ Report Released Date/Time: Oct 28, 2023 10:52 AM Reporting Lab: [facility] [address] Performing Lab: [facility] [address] [facility] ([facility]) COMPREHEN SIVE METABOLIC PANEL+MG SODIUM [MOLES/VOLU ME] IN SERUM OR PLASMA 140 mmol/L 136 - 145 10/27 Specimen Type: PLASMA Comment: Elevated triglycerid e result from a non-fasting specimen should be interpreted with caution. A fasting panel is recommended for accurate triglycerid es when trigs are >200 from a non-fasting specimen. Ordering Provider: ALOK GUTIERREZ Report Released Date/Time: Oct 28, 2023 10:52 AM Reporting Lab: [facility] [address] Performing Lab: [facility] [address] [facility] ([facility]) COMPREHEN SIVE METABOLIC PANEL+MG POTASSIUM [MOLES/VOLU ME] IN SERUM OR PLASMA 4.3 mmol/L 3.5 - 5.1 10/27 Specimen Type: PLASMA Comment: Elevated triglycerid e result from a non-fasting specimen should be interpreted with caution. A fasting panel is recommended for accurate triglycerid es when trigs are >200 from a non-fasting specimen. Ordering Provider: ALOK GUTIERREZ Report Released Date/Time: Oct 28, 2023 10:52 AM Reporting Lab: [facility] [address] Performing Lab: [facility] [address] [facility] ([facility]) COMPREHEN SIVE METABOLIC PANEL+MG CHLORIDE [MOLES/VOLU ME] IN SERUM OR PLASMA 104 mmol/L 98 - 107 10/27 Specimen Type: PLASMA Comment: Elevated triglycerid e result from a non-fasting specimen should be interpreted with caution. A fasting panel is recommended for accurate triglycerid es when trigs are >200 from a non-fasting specimen. Ordering Provider: ALOK GUTIERREZ Report Released Date/Time: Oct 28, 2023 10:52 AM Reporting Lab: [facility] [address] Performing Lab: [facility] [address] [facility] ([facility]) COMPREHEN SIVE METABOLIC PANEL+MG CARBON DIOXIDE, TOTAL [MOLES/VOLU ME] IN SERUM OR PLASMA 24 mmol/L 22 - 29 10/27 Specimen Type: PLASMA Comment: Elevated triglycerid e result from a non-fasting specimen should be interpreted with caution. A fasting panel is recommended for accurate triglycerid es when trigs are >200 from a non-fasting specimen. Ordering Provider: ALOK GUTIERREZ Report Released Date/Time: Oct 28, 2023 10:52 AM Reporting Lab: [facility] [address] Performing Lab: [facility] [address] [facility] ([facility]) COMPREHEN SIVE METABOLIC PANEL+MG CALCIUM [MASS/VOLUM E] IN SERUM OR PLASMA 9.8 mg/dL 8.4 - 10.2 10/27 Specimen Type: PLASMA Comment: Elevated triglycerid e result from a non-fasting specimen should be interpreted with caution. A fasting panel is recommended for accurate triglycerid es when trigs are >200 from a non-fasting specimen. Ordering Provider: ALOK GUTIERREZ Report Released Date/Time: Oct 28, 2023 10:52 AM Reporting Lab: [place] [phone] Performing Lab: [address] ([facility]) COMPREHEN SIVE METABOLIC PANEL+MG PROTEIN [MASS/VOLUM E] IN SERUM OR PLASMA 7.2 g/dL 6.0 - 8.3 10/27 Specimen Type: PLASMA Comment: Elevated triglycerid e result from a non-fasting specimen should be interpreted with caution. A fasting panel is recommended for accurate triglycerid es when trigs are >200 from a non-fasting specimen. Ordering Provider: ALOK GUTIERREZ Report Released Date/Time: Oct 28, 2023 10:52 AM Reporting Lab: [place] [phone] Performing Lab: [address] ([facility]) COMPREHEN SIVE METABOLIC PANEL+MG ALBUMIN [MASS/VOLUM E] IN SERUM OR PLASMA 4.4 g/dL 3.5 - 5.2 10/27 Specimen Type: PLASMA Comment: Elevated triglycerid e result from a non-fasting specimen should be interpreted with caution. A fasting panel is recommended for accurate triglycerid es when trigs are >200 from a non-fasting specimen. Ordering Provider: ALOK GUTIERREZ Report Released Date/Time: Oct 28, 2023 10:52 AM Reporting Lab: [place] [phone] Performing Lab: [address] ([facility]) COMPREHEN SIVE METABOLIC PANEL+MG BILIRUBIN.T OTAL [MASS/VOLUM E] IN SERUM OR PLASMA 0.7 mg/dL 0.2 - 1.2 10/27 Specimen Type: PLASMA Comment: Elevated triglycerid e result from a non-fasting specimen should be interpreted with caution. A fasting panel is recommended for accurate triglycerid es when trigs are >200 from a non-fasting specimen. Ordering Provider: ALOK GUTIERREZ Report Released Date/Time: Oct 28, 2023 10:52 AM Reporting Lab: [facility] [address] Performing Lab: [facility] [address] [facility] ([facility]) COMPREHEN SIVE METABOLIC PANEL+MG MAGNESIUM [MASS/VOLUM E] IN SERUM OR PLASMA 2.2 mg/dL 1.6 - 2.6 10/27 Specimen Type: PLASMA Comment: Elevated triglycerid e result from a non-fasting specimen should be interpreted with caution. A fasting panel is recommended for accurate triglycerid es when trigs are >200 from a non-fasting specimen. Ordering Provider: ALOK GUTIERREZ Report Released Date/Time: Oct 28, 2023 10:52 AM Reporting Lab: [facility] [address] Performing Lab: [facility] [address] [facility] ([facility]) COMPREHEN SIVE METABOLIC PANEL+MG ANION GAP IN SERUM OR PLASMA 12 mmol/L 5 - 15 10/27 Specimen Type: PLASMA Comment: Elevated triglycerid e result from a non-fasting specimen should be interpreted with caution. A fasting panel is recommended for accurate triglycerid es when trigs are >200 from a non-fasting specimen. Ordering Provider: ALOK GUTIERREZ Report Released Date/Time: Oct 28, 2023 10:52 AM Reporting Lab: [facility] [address] Performing Lab: [facility] [address] [facility] ([facility]) COMPREHEN SIVE METABOLIC PANEL+MG ALKALINE PHOSPHATASE [ENZYMATIC ACTIVITY/VO LUME] IN SERUM OR PLASMA 109 U/L 40 - 150 10/27 Specimen Type: PLASMA Comment: Elevated triglycerid e result from a non-fasting specimen should be interpreted with caution. A fasting panel is recommended for accurate triglycerid es when trigs are >200 from a non-fasting specimen. Ordering Provider: ALOK GUTIERREZ Report Released Date/Time: Oct 28, 2023 10:52 AM Reporting Lab: [facility] [address] Performing Lab: [facility] [address] [facility] ([facility]) COMPREHEN SIVE METABOLIC PANEL+MG ALANINE AMINOTRANSF ERASE [ENZYMATIC ACTIVITY/VO LUME] IN SERUM OR PLASMA 24 U/L <55 - 55 10/27 Specimen Type: PLASMA Comment: Elevated triglycerid e result from a non-fasting specimen should be interpreted with caution. A fasting panel is recommended for accurate triglycerid es when trigs are >200 from a non-fasting specimen. Ordering Provider: ALOK GUTIERREZ Report Released Date/Time: Oct 28, 2023 10:52 AM Reporting Lab: [facility] [address] Performing Lab: [facility] [address] [facility] ([facility]) COMPREHEN SIVE METABOLIC PANEL+MG ASPARTATE AMINOTRANSF ERASE [ENZYMATIC ACTIVITY/VO LUME] IN SERUM OR PLASMA 20 U/L <34 - 34 10/27 Specimen Type: PLASMA Comment: Elevated triglycerid e result from a non-fasting specimen should be interpreted with caution. A fasting panel is recommended for accurate triglycerid es when trigs are >200 from a non-fasting specimen. Ordering Provider: ALOK GUTIERREZ Report Released Date/Time: Oct 28, 2023 10:52 AM Reporting Lab: [facility] [address] Performing Lab: [facility] [address] [facility] ([facility]) COMPREHEN SIVE METABOLIC PANEL+MG GLOMERULAR FILTRATION RATE/1.73 SQ M.PREDICTED [VOLUME RATE/AREA] IN SERUM, PLASMA OR BLOOD BY CREATININE- BASED FORMULA (CKD-EPI 2020) 81 60 10/27 Specimen Type: PLASMA Comment: Elevated triglycerid e result from a non-fasting specimen should be interpreted with caution. A fasting panel is recommended for accurate triglycerid es when trigs are >200 from a non-fasting specimen. Ordering Provider: ALOK GUTIERREZ Report Released Date/Time: Oct 28, 2023 10:52 AM Reporting Lab: [facility] [address] Performing Lab: [facility] [address] [facility] ([facility]) CBC & DIFF LEUKOCYTES [#/VOLUME] IN BLOOD BY AUTOMATED COUNT 8.29 10*3/u L 4.0 - 11.0 10/27 Specimen Type: BLOOD Comment: Automated Differentia l Performed Ordering Provider: ALOK GUTIERREZ Report Released Date/Time: Oct 28, 2023 10:52 AM Reporting Lab: [facility] [address] Performing Lab: [facility] [address] [facility]) CBC & DIFF ERYTHROCYTE S [#/VOLUME] IN BLOOD BY AUTOMATED COUNT 6.34 10*6/u L 4.6 - 6.2 10/27 H Specimen Type: BLOOD Comment: Automated Differentia l Performed Ordering Provider: ALOK GUTIERREZ Report Released Date/Time: Oct 28, 2023 10:52 AM Reporting Lab: [facility] [address] Performing Lab: [facility] [address] [facility] ([facility]) CBC & DIFF HEMOGLOBIN [MASS/VOLUM E] IN BLOOD 19.9 g/dL 13.5 - 17.9 10/27 H Specimen Type: BLOOD Comment: Automated Differentia l Performed Ordering Provider: ALOK GUTIERREZ Report Released Date/Time: Oct 28, 2023 10:52 AM Reporting Lab: [facility] [address] Performing Lab: [facility] [address] [facility] ([facility]) CBC & DIFF HEMATOCRIT [VOLUME FRACTION] OF BLOOD BY AUTOMATED COUNT 57.1 41 - 54 10/27 H Specimen Type: BLOOD Comment: Automated Differentia l Performed Ordering Provider: ALOK GUTIERREZ Report Released Date/Time: Oct 28, 2023 10:52 AM Reporting Lab: [facility] [address] Performing Lab: [facility] [address] [facility] ([facility]) CBC & DIFF MCV [ENTITIC VOLUME] BY AUTOMATED COUNT 90.1 fL 80 - 100 10/27 Specimen Type: BLOOD Comment: Automated Differentia l Performed Ordering Provider: ALOK GUTIERREZ Report Released Date/Time: Oct 28, 2023 10:52 AM Reporting Lab: [facility] [address] Performing Lab: [facility] [address] [facility] ([facility]) CBC & DIFF MCH [ENTITIC MASS] BY AUTOMATED COUNT 31.4 pg 27 - 33 10/27 Specimen Type: BLOOD Comment: Automated Differentia l Performed Ordering Provider: ALOK GUTIERREZ Report Released Date/Time: Oct 28, 2023 10:52 AM Reporting Lab: [facility] [address] Performing Lab: [facility] [address] [facility] [facility] ([facility]) CBC & DIFF MCHC [MASS/VOLUM E] BY AUTOMATED COUNT 34.9 g/dL 32.0 - 37.5 10/27 Specimen Type: BLOOD Comment: Automated Differentia l Performed Ordering Provider: ALOK GUTIERREZ Report Released Date/Time: Oct 28, 2023 10:52 AM Reporting Lab: [facility] [address] Performing Lab: [facility] [address] [facility] [facility] ([facility]) CBC & DIFF PLATELETS [#/VOLUME] IN BLOOD BY AUTOMATED COUNT 262 10*3/u L 150 - 400 10/27 Specimen Type: BLOOD Comment: Automated Differentia l Performed Ordering Provider: ALOK GUTIERREZ Report Released Date/Time: Oct 28, 2023 10:52 AM Reporting Lab: [facility] [address] Performing Lab: [facility] [address] [place] [facility] (CB) CBC & DIFF PLATELET MEAN VOLUME [ENTITIC VOLUME] IN BLOOD BY AUTOMATED COUNT 9.7 fL 7.4 - 10.4 10/27 Specimen Type: BLOOD Comment: Automated Differentia l Performed Ordering Provider: ALOK GUTIERREZ Report Released Date/Time: Oct 28, 2023 10:52 AM Reporting Lab: [facility] [address] Performing Lab: [facility] [address] [facility] [facility] ([facility]) CBC & DIFF NEUTROPHILS /100 LEUKOCYTES IN BLOOD BY MANUAL COUNT 54.0 40.0 - 80.0 10/27 Specimen Type: BLOOD Comment: Automated Differentia l Performed Ordering Provider: ALOK GUTIERREZ Report Released Date/Time: Oct 28, 2023 10:52 AM Reporting Lab: [facility] [address] Performing Lab: [facility] [address] [facility] [facility] ([facility]) CBC & DIFF LYMPHOCYTES /100 LEUKOCYTES IN BLOOD BY MANUAL COUNT 33.4 15.0 - 45.0 10/27 Specimen Type: BLOOD Comment: Automated Differentia l Performed Ordering Provider: ALOK GUTIERREZ Report Released Date/Time: Oct 28, 2023 10:52 AM Reporting Lab: [facility] [address] Performing Lab: [facility] [address] [facility] [facility] ([facility]) CBC & DIFF MONOCYTES/1 00 LEUKOCYTES IN BLOOD BY AUTOMATED COUNT 9.0 2.0 - 12.0 10/27 Specimen Type: BLOOD Comment: Automated Differentia l Performed Ordering Provider: ALOK GUTIERREZ Report Released Date/Time: Oct 28, 2023 10:52 AM Reporting Lab: [facility] [address] Performing Lab: [facility] [phone] [place] [address] (CBOC) CBC & DIFF EOSINOPHILS /100 LEUKOCYTES IN BLOOD BY AUTOMATED COUNT 2.4 0.0 - 6.0 10/27 Specimen Type: BLOOD Comment: Automated Differentia l Performed Ordering Provider: ALOK GUTIERREZ Report Released Date/Time: Oct 28, 2023 10:52 AM Reporting Lab: [facility] [address] Performing Lab: [facility] [phone] [place] [address] (CBOC) CBC & DIFF BASOPHILS/1 00 LEUKOCYTES IN BLOOD BY MANUAL COUNT 0.8 0.0 - 2.0 10/27 Specimen Type: BLOOD Comment: Automated Differentia l Performed Ordering Provider: ALOK GUTIERREZ Report Released Date/Time: Oct 28, 2023 10:52 AM Reporting Lab: [facility] [address] Performing Lab: [facility] [address] [facility] ([facility]) CBC & DIFF ERYTHROCYTE DISTRIBUTIO N WIDTH [RATIO] BY AUTOMATED COUNT 12.7 11.5 - 14.5 10/27 Specimen Type: BLOOD Comment: Automated Differentia l Performed Ordering Provider: ALOK GUTIERREZ Report Released Date/Time: Oct 28, 2023 10:52 AM Reporting Lab: [facility] [address] Performing Lab: [facility] [phone] [place] [address] (CBOC) CBC & DIFF LYMPHOCYTES [#/VOLUME] IN BLOOD BY AUTOMATED COUNT 2.77 10*3/u L 1.0 - 4.0 10/27 Specimen Type: BLOOD Comment: Automated Differentia l Performed Ordering Provider: ALOK GUTIERREZ Report Released Date/Time: Oct 28, 2023 10:52 AM Reporting Lab: [facility] [address] Performing Lab: [facility] [address] [facility] ([facility]) CBC & DIFF MONOCYTES [#/VOLUME] IN BLOOD BY AUTOMATED COUNT 0.75 10*3/u L 0.1 - 1.0 10/27 Specimen Type: BLOOD Comment: Automated Differentia l Performed Ordering Provider: ALOK GUTIERREZ Report Released Date/Time: Oct 28, 2023 10:52 AM Reporting Lab: [facility] [address] Performing Lab: [facility] [address] [facility] [facility] ([facility]) CBC & DIFF NEUTROPHILS [#/VOLUME] IN BLOOD BY AUTOMATED COUNT 4.47 10*3/u L 2.0 - 7.7 10/27 Specimen Type: BLOOD Comment: Automated Differentia l Performed Ordering Provider: ALOK GUTIERREZ Report Released Date/Time: Oct 28, 2023 10:52 AM Reporting Lab: [facility] [address] Performing Lab: [facility] [address] [facility] [facility] ([facility]) CBC & DIFF EOSINOPHILS [#/VOLUME] IN BLOOD BY AUTOMATED COUNT 0.20 10*3/u L 0 - 0.5 10/27 Specimen Type: BLOOD Comment: Automated Differentia l Performed Ordering Provider: ALOK GUTIERREZ Report Released Date/Time: Oct 28, 2023 10:52 AM Reporting Lab: [facility] [address] Performing Lab: [facility] [address] [facility] [facility] ([facility]) CBC & DIFF BASOPHILS [#/VOLUME] IN BLOOD BY AUTOMATED COUNT 0.07 10*3/u L 0 - 0.2 10/27 Specimen Type: BLOOD Comment: Automated Differentia l Performed Ordering Provider: ALOK GUTIERREZ Report Released Date/Time: Oct 28, 2023 10:52 AM Reporting Lab: [facility] [address] Performing Lab: [facility] [address] [facility] ([facility]) CBC & DIFF IG(META,MYE LO,PRO) 0.4 10/27 Specimen Type: BLOOD Comment: Automated Differentia l Performed Ordering Provider: ALOK GUTIERREZ Report Released Date/Time: Oct 28, 2023 10:52 AM Reporting Lab: [facility] [address] Performing Lab: [facility] [address] [facility] [facility] ([facility]) CBC & DIFF IMMATURE GRANULOCYTE S [PRESENCE] IN BLOOD BY AUTOMATED COUNT 0.03 10*3/u L 0 - 0.1 10/27 Specimen Type: BLOOD Comment: Automated Differentia l Performed Ordering Provider: ALOK GUTIERREZ Report Released Date/Time: Oct 28, 2023 10:52 AM Reporting Lab: [facility] [address] Performing Lab: [facility] [phone] [place] [address] ([facility]) BNP NATRIURETIC PEPTIDE B [MASS/VOLUM E] IN SERUM OR PLASMA 85 pg/mL <99 - 99 08/27 Specimen Type: PLASMA No comment entered. Ordering Provider: XUAN URBAN Report Released Date/Time: Apr 17, 2023 10:39 AM Reporting Lab: [facility] [address] Performing Lab: [facility] [address] [facility] BASIC METABOLIC PANEL+MG CREATININE [MASS/VOLUM E] IN SERUM OR PLASMA 0.9 mg/dL 0.7 - 1.2 08/27 Specimen Type: PLASMA No comment entered. Ordering Provider: XUAN URBAN Report Released Date/Time: Apr 17, 2023 10:39 AM Reporting Lab: [facility] [address] Performing Lab: [facility] [address] [place] [facility] BASIC METABOLIC PANEL+MG UREA NITROGEN [MASS/VOLUM E] IN SERUM OR PLASMA 16 mg/dL 8 - 26 08/27 Specimen Type: PLASMA No comment entered. Ordering Provider: XUAN URBAN Report Released Date/Time: Apr 17, 2023 10:39 AM Reporting Lab: [facility] [address] Performing Lab: [facility] [address] [place] [facility] BASIC METABOLIC PANEL+MG GLUCOSE [MASS/VOLUM E] IN SERUM OR PLASMA 222 mg/dL 70 - 100 08/27 H Specimen Type: PLASMA No comment entered. Ordering Provider: XUAN URBAN Report Released Date/Time: Apr 17, 2023 10:39 AM Reporting Lab: [facility] [address] Performing Lab: [facility] [address] [place] [facility] BASIC METABOLIC PANEL+MG SODIUM [MOLES/VOLU ME] IN SERUM OR PLASMA 137 mmol/L 136 - 145 08/27 Specimen Type: PLASMA No comment entered. Ordering Provider: XUAN URBAN A Report Released Date/Time: Apr 17, 2023 10:39 AM Reporting Lab: [facility] [address] Performing Lab: [facility] [address] [place] [facility] BASIC METABOLIC PANEL+MG POTASSIUM [MOLES/VOLU ME] IN SERUM OR PLASMA 4.0 mmol/L 3.5 - 5.1 08/27 Specimen Type: PLASMA No comment entered. Ordering Provider: XUAN URBAN A Report Released Date/Time: Apr 17, 2023 10:39 AM Reporting Lab: [facility] [address] Performing Lab: [facility] [address] [place] [facility] BASIC METABOLIC PANEL+MG CHLORIDE [MOLES/VOLU ME] IN SERUM OR PLASMA 105 mmol/L 98 - 107 08/27 Specimen Type: PLASMA No comment entered. Ordering Provider: XUAN URBAN Report Released Date/Time: Apr 17, 2023 10:39 AM Reporting Lab: [facility] [address] Performing Lab: [facility] [address] [place] [facility] BASIC METABOLIC PANEL+MG CARBON DIOXIDE, TOTAL [MOLES/VOLU ME] IN SERUM OR PLASMA 23 mmol/L 22 - 29 08/27 Specimen Type: PLASMA No comment entered. Ordering Provider: XUAN URBAN A Report Released Date/Time: Apr 17, 2023 10:39 AM Reporting Lab: [facility] [address] Performing Lab: [facility] [address] [place] [facility] BASIC METABOLIC PANEL+MG CALCIUM [MASS/VOLUM E] IN SERUM OR PLASMA 9.3 mg/dL 8.4 - 10.2 08/27 Specimen Type: PLASMA No comment entered. Ordering Provider: XUAN URBAN Report Released Date/Time: Apr 17, 2023 10:39 AM Reporting Lab: [facility] [address] Performing Lab: [facility] [address] [place] [facility] BASIC METABOLIC PANEL+MG MAGNESIUM [MASS/VOLUM E] IN SERUM OR PLASMA 2.2 mg/dL 1.6 - 2.6 08/27 Specimen Type: PLASMA No comment entered. Ordering Provider: XUAN URBAN Report Released Date/Time: Apr 17, 2023 10:39 AM Reporting Lab: [facility] [address] Performing Lab: [facility] [address] [place] [facility] BASIC METABOLIC PANEL+MG ANION GAP IN SERUM OR PLASMA 9 mmol/L 5 - 15 08/27 Specimen Type: PLASMA No comment entered. Ordering Provider: XUAN URBAN Report Released Date/Time: Apr 17, 2023 10:39 AM Reporting Lab: [facility] [address] Performing Lab: [facility] [address] [place] [facility] BASIC METABOLIC PANEL+MG GLOMERULAR FILTRATION RATE/1.73 SQ M.PREDICTED [VOLUME RATE/AREA] IN SERUM, PLASMA OR BLOOD BY CREATININE- BASED FORMULA (CKD-EPI 2020) >90 60 08/27 Specimen Type: PLASMA No comment entered. Ordering Provider: XUAN URBAN Report Released Date/Time: Apr 17, 2023 10:39 AM Reporting Lab: [facility] [address] Performing Lab: [facility] [address] [place] [facility] CBC LEUKOCYTES [#/VOLUME] IN BLOOD BY AUTOMATED COUNT 6.83 10*3/u L 4.0 - 11.0 08/27 Specimen Type: BLOOD No comment entered. Ordering Provider: XUAN URBAN Report Released Date/Time: Apr 17, 2023 10:39 AM Reporting Lab: [facility] [address] Performing Lab: [facility] [address] [place] [facility] CBC ERYTHROCYTE S [#/VOLUME] IN BLOOD BY AUTOMATED COUNT 5.85 10*6/u L 4.6 - 6.2 08/27 Specimen Type: BLOOD No comment entered. Ordering Provider: XUAN URBAN Report Released Date/Time: Apr 17, 2023 10:39 AM Reporting Lab: [facility] [address] Performing Lab: [facility] [address] [place] [facility] CBC HEMOGLOBIN [MASS/VOLUM E] IN BLOOD 18.7 g/dL 13.5 - 17.9 08/27 H Specimen Type: BLOOD No comment entered. Ordering Provider: XUAN URBAN Report Released Date/Time: Apr 17, 2023 10:39 AM Reporting Lab: [facility] [address] Performing Lab: [facility] [address] [place] [facility] CBC HEMATOCRIT [VOLUME FRACTION] OF BLOOD BY AUTOMATED COUNT 52.4 41 - 54 08/27 Specimen Type: BLOOD No comment entered. Ordering Provider: XUAN URBAN Report Released Date/Time: Apr 17, 2023 10:39 AM Reporting Lab: [facility] [address] Performing Lab: [facility] [address] [place] [facility] CBC MCV [ENTITIC VOLUME] BY AUTOMATED COUNT 89.6 fL 80 - 100 08/27 Specimen Type: BLOOD No comment entered. Ordering Provider: XUAN URBAN Report Released Date/Time: Apr 17, 2023 10:39 AM Reporting Lab: [facility] [address] Performing Lab: [facility] [address] [place] [facility] CBC MCH [ENTITIC MASS] BY AUTOMATED COUNT 32.0 pg 27 - 33 08/27 Specimen Type: BLOOD No comment entered. Ordering Provider: XUAN URBAN Report Released Date/Time: Apr 17, 2023 10:39 AM Reporting Lab: [facility] [address] Performing Lab: [facility] [address] [place] [facility] CBC MCHC [MASS/VOLUM E] BY AUTOMATED COUNT 35.7 g/dL 32.0 - 37.5 08/27 Specimen Type: BLOOD No comment entered. Ordering Provider: XUAN URBAN Report Released Date/Time: Apr 17, 2023 10:39 AM Reporting Lab: [facility] [address] Performing Lab: [facility] [address] [facility] CBC PLATELETS [#/VOLUME] IN BLOOD BY AUTOMATED COUNT 216 10*3/u L 150 - 400 08/27 Specimen Type: BLOOD No comment entered. Ordering Provider: XUAN URBAN Report Released Date/Time: Apr 17, 2023 10:39 AM Reporting Lab: [facility] [address] Performing Lab: [facility] [address] [facility] CBC PLATELET MEAN VOLUME [ENTITIC VOLUME] IN BLOOD BY AUTOMATED COUNT 9.4 fL 7.4 - 10.4 08/27 Specimen Type: BLOOD No comment entered. Ordering Provider: XUAN URBAN Report Released Date/Time: Apr 17, 2023 10:39 AM Reporting Lab: [facility] [address] Performing Lab: [facility] [address] [facility] CBC ERYTHROCYTE DISTRIBUTIO N WIDTH [RATIO] BY AUTOMATED COUNT 12.9 11.5 - 14.5 08/27 Specimen Type: BLOOD No comment entered. Ordering Provider: XUAN URBAN Report Released Date/Time: Apr 17, 2023 10:39 AM Reporting Lab: [facility] [address] Performing Lab: [facility] [address] [facility] BNP NATRIURETIC PEPTIDE B [MASS/VOLUM E] IN SERUM OR PLASMA 54 pg/mL <99 - 99 12/12 Specimen Type: PLASMA No comment entered. Ordering Provider: XUAN URBAN Report Released Date/Time: Aug 20, 2022 10:51 AM Reporting Lab: [facility] [address] Performing Lab: [facility] [address] [facility] [address] [facility] Vital Signs Combined list of inpatient and outpatient Vital Signs from Department of Defense and Veterans Affairs, ranging from 12 months to all on record, depending upon the facility. Vital Sign Value Date Comments Source SYSTOLIC BLOOD PRESSURE 115 10/28/2023 10:07:57 [facility] ([facility]) DIASTOLIC BLOOD PRESSURE 72 10/28/2023 10:07:57 [facility] ([facility]) PULSE OXIMETRY 95 10/28/2023 10:07:57 [place] ([facility]) WEIGHT 251.2 10/28/2023 10:07:57 [facility] ([facility]) BMI 35kg/m2 10/28/2023 10:07:57 [facility] ([facility]) PAIN 6 10/28/2023 10:07:57 [facility] ([facility]) HEIGHT 71.063 10/28/2023 10:07:57 [facility] ([facility]) TEMPERATURE 96.8 10/28/2023 10:07:57 [facility] ([facility]) PULSE 77 10/28/2023 10:07:57 [facility] ([facility]) RESPIRATION 16 10/28/2023 10:07:57 [facility] ([facility]) SYSTOLIC BLOOD PRESSURE 138 08/28/2023 09:47:57 [facility] DIASTOLIC BLOOD PRESSURE 89 08/28/2023 09:47:57 [facility] PULSE OXIMETRY 95 08/28/2023 09:47:[address] [facility] WEIGHT 256.8 08/28/2023 09:47:57 [facility] BMI 36kg/m2 08/28/2023 09:47:57 [facility] PAIN 0 08/28/2023 09:47:57 [facility] PULSE 80 08/28/2023 09:47:57 [facility] RESPIRATION 18 08/28/2023 09:47:57 MINNicole [facility] Encounters Combined list of: 1) Encounters from Department of Veterans Affairs facilities going back up to thelast 18 months. 2) Encounters from the Department of Defense facilities going back up to 280 months. Location Location Details Encounter Type Encounter Number Reason For Visit Attending Provider ADM Date DC Date Status Disposition Source [place] [facility] [place] [facility] PRO PHONE CALL 5-10 MIN [id number] Diagnos is: ICD-10- CM F41.9 Anxiety disorde r, unspeci fied
DOMITILA TILLEY IEL J 11/[facility] Outpatient Encounter [id number] 11/[facility] Outpatient Encounter [id number] ADE LEZAMA AHAT 11/[facility] HC PRO PHONE CALL 5-10 MIN [id number] Diagnos is: ICD-10- CM F41.9 Anxiety disorde r, unspeci fied
DOMITILA TILLEY IEL J 11/[facility] Outpatient Encounter [id number] 11/29 [facility] CASE MANAGEMENT [id number] Diagnos is: ICD-10- CM F41.9 Anxiety disorde r, unspeci fied
DOMITILA TILLEY IEL J 12/05 [facility] IS [facility] ELECTROCAR DIOGRAM COMPLETE [id number] Diagnos is: ICD-10- CM Z13.6 Encount er for screeni ng for cardiov ascular disorde rs
Pat NEAL O 12/12 [facility] OFFICE O/P EST HI 40-54 MIN [id number] Diagnos is: ICD-10- CM I50.20 Unspeci fied systoli c (conges tive) heart failure
ABHAY URBAN TT A 12/12 [facility] CASE MANAGEMENT [id number] Diagnos is: ICD-10- CM F41.9 Anxiety disorde r, unspeci fied
DOMITILA TILLEY IEL J 12/25 [facility] [place] [facility] Outpatient Encounter [id number] 01/08 [place] [facility] [place] [facility] Outpatient Encounter [id number] 01/24 [place] [facility] [place] [facility] Outpatient Encounter [id number] 02/25 [place] [facility] [place] [facility] Outpatient Encounter [id number] 04/11 [place] [facility] [place] [facility] ELECTROCAR DIOGRAM COMPLETE [id number] Diagnos is: ICD-10- CM Z13.6 Encount er for screeni ng for cardiov ascular disorde rs
ESTRADA,TIMOTHY REL 04/17 [facility] OFFICE O/P EST HI 40-54 MIN [id number] Diagnos is: ICD-10- CM I50.9 Heart failure , unspeci fied
ABHAY URBAN TT A 04/17 [place] [facility] PHONE CALL 5-10 MIN [id number] Diagnos is: ICD-10- CM Z59.02 Unshelt ered homeles sness<b r/> Hugo DELGADO TEPPAWEL L 04/22 [facility] [place] [facility] [place] PHONE CALL 11-20 MIN [id number] Diagnos is: ICD-10- CM Z59.02 Unshelt ered homeles sness<b r/> Hugo DELGADO TEPHANIE L 04/22 [place] [facility] CASE MANAGEMENT [id number] Diagnos is: ICD-10- CM Z59.02 Unshelt ered homeles sness<b r/> SANDYHugo SALCIDO 04/29 [place] [facility] [facility] [place] [facility] En[facility] [id number] 05/07 [place] [facility] [place] [facility] En[facility] [id number] Barrington OQUENDO 05/07 [place] [facility] [place] [facility] En[facility] [id number] 05/13 [place] [facility] [place] [facility] En[facility] [id number] 05/13 [place] [facility] [place] [facility] En[place] [id number] 05/16 [place] [facility] [place] [facility] En[place] [id number] ROSHNI GUTIERREZ 05/20 [place] [facility] [facility] [place] [facility] PHONE CALL 11-20 MIN [id number] Diagnos is: ICD-10- CM Z59.01 [facility] ed [facility] par[facility]<b r/> Hugo DELGADO 05/23 [place] [facility] [facility] [place] [facility] En[facility] [id number] 05/26 [place] [facility] [place] [facility] En[facility] [id number] 06/03 [place] [facility] [place] [facility] En[facility] [id number] 06/18 [place] [facility] [place] [facility] En[facility] [id number] 07/02 [place] [facility] [place] [facility] En[facility] [id number] 07/15 [place] [facility] [place] [facility] En[place] [id number] 07/21 [place] [facility] [place] [facility] En[facility] [id number] 08/14 [facility] TTE W/DOPPLER COMPLETE [id number] Diagnos is: ICD-10- CM I50.20 Unspeci fied systoli c (conges tive) heart failure
ASHIA RICE NZI 08/27 [facility] ELECTROCAR DIOGRAM REPORT [id number] Diagnos is: ICD-10- CM Z13.6 Encount er for screeni ng for cardiov ascular disorde rs
Pat NEAL O 08/27 [facility] OFFICE O/P EST HI 40 MIN [id number] Diagnos is: ICD-10- CM I50.9 Heart failure , unspeci fied
SIMEGNicole,MEN GISTU A 08/27 [facility] EXT ECG>48HR<7 D RECORDING [id number] Diagnos is: ICD-10- CM Z13.6 Encount er for screeni ng for cardiov ascular disorde rs
IMAN COTTON 08/27 [facility] PRO PHONE CALL 5-10 MIN [id number] Diagnos is: ICD-10- CM I50.22 Chronic systoli c (conges tive) heart failure
SIMSOREN,CAMRYN GISTU A 08/28 [facility] Outpatient Encounter [id number] 09/25 [facility] ([facility]) OFFICE O/P EST LOW 20 MIN [id number] Diagnos is: ICD-10- CM Z00.00 Encntr for general adult medical exam w/o abnorma l finding s
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
CHEN WU 10/27 [facility]) [facility] ([facility]) Outpatient Encounter [id number] 10/27 [facility] [place] [facility] Outpatient Encounter [id number] 10/28 [place] [facility] [place] [facility] Outpatient Encounter [id number] 10/28 [place] [facility] ([facility]) PSYTX W PT 30 MINUTES [id number] [id number] Diagnos is: ICD-10- CM F32.89 Other specifi ed depress nayeli episode s
CHEN WU 11/16 [facility] [place] [facility] Outpatient Encounter [id number] 11/23 [place] [facility] ([facility]) Outpatient Encounter [id number] 12/01 [facility] [place] [facility] Outpatient Encounter [id number] 12/03 [place] [facility] [place] [facility] Outpatient Encounter [id number] 12/04 [place] [facility] [place] [facility] Outpatient Encounter [id number] 12/04 [place] [facility] [place] [facility] Outpatient Encounter [id number] NAS SCHAEFER ONCATRACHITO A 12/04 [place] [facility] [place] [facility] Outpatient Encounter [id number] FREDDY XAVIER 12/05 [facility] Outpatient Encounter [id number] 12/07 [facility] Outpatient Encounter [id number] 12/21 [facility] ([facility]) PSYCH DIAGNOSTIC EVALUATION [id number] Diagnos is: ICD-10- CM Z72.0 Tobacco use<br/ > SILVESTRE,ASHLE Y M 03/05 [place] [facility] CASE MANAGEMENT [id number] Diagnos is: ICD-10- CM Z59.9 Problem related to housing and economi c circums tances, unsp
SILVESTRE,ASHLE Y M 03/25 [place] ([facility]) CASE MANAGEMENT [id number] Diagnos is: ICD-10- CM Z59.9 Problem related to housing and economi c circums tances, unsp
SILVESTRE,ASHLE Y M 04/06 [place] ([facility]) HC PRO PHONE CALL 21-30 MIN [id number] Diagnos is: ICD-10- CM Z59.9 Problem related to housing and economi c circums tances, unsp
SILVESTRE,ASHLE Y M 04/09 [place] ([facility]) [facility]) CASE MANAGEMENT [id number] Diagnos is: ICD-10- CM Z59.9 Problem related to housing and economi c circums tances, unsp
SILVESTRE,ASHLE Y M 04/14 [place] ([facility]) [facility]) HC PRO PHONE CALL 21-30 MIN [id number] Diagnos is: ICD-10- CM Z59.00 Homeles sness unspeci fied
SILVESTRE,ASHLE Y M 04/20 [place] ([facility]) [facility]) HC PRO PHONE CALL 5-10 MIN [id number] Diagnos is: ICD-10- CM Z72.0 Tobacco use<br/ > LEELEE SILVESTRE 05/03 [facility] JUNG ([facility]) [place] [facility] Outpatient Encounter [id number] 05/12 J[facility] OL[facility] Social History Combined list of available smoking, tobacco, and other social history from Department of Defense and Veterans Affairs facilities. Social History Type Response Date Comment Sour e Tobacco smoking status NHIS VA-TOBACCO USER EVERY DAY 10/28/2023 [place] ([facility]) History of tobacco use VA-TOBACCO DOESNT USE WI 30 MIN WAKEUP 10/28/2023 SARAH ([facility]) History of tobacco use VA-TOBACCO USER EVERY DAY SARAH ([facility]) Advance Directives List of completed, amended, or rescinded Advance Directives on record at Department of Veterans Affairs facilities. An actual copy of the Directive is not included. Date Advance Directive Provider Source 03/05/2024 ADVANCE DIRECTIVE DISCUSSION MISBAH SILVESTRE ([facility]) 09/04/2022 ADVANCE DIRECTIVE DISCUSSION DARVIN DEE [facility]
--- OUTSIDE RECORDS SUMMARY | 2024-05-15 21:45 | XMS_ITS | Encounter Summary ---
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 Date/Time Encounter Type Encounter Description Reason Provider Source Nov 17, 2023 11:00 AM PSYTX W PT 30 MINUTES [facility] INDIV ICD-10-CM F32.89 Other specified depressive episodes RANJIT WU Angel[place] Encounter Template Text not used by [place] Assessments - Encounter Diagnoses This section includes the primary and secondary diagnoses documented for the Encounter. Date/Time Primary/Secondary Diagnosis Diagnosis Name Provider Source Nov 17, 2023 11:31 AM PRIMARY Other specified depressive episodes RANJIT WU [facility]) Nov 17, 2023 11:31 AM SECONDARY Anxiety disorder, unspecified RANJIT WU [facility]) Plan of Treatment: Future Appointments (+ 6 months) and Future Tests (+/- 45 days) The Plan of Treatment section includes future care activities for the patient from all [place] treatmentfacilities. This section includes future appointments and future orders which are active, pending or scheduled. Future Appointments This section includes appointments that were scheduled to occur 6 months from the date of the Encounter, up to a maximum of 20 appointments. The data comes from all [facility] treatment facilities. Appointment Date/Time Appointment Type Appointme nt Facility Name Nov 24, 2023 02:00 PM AMBULATORY - REHAB MEDICIN E [facility] Dec 02, 2023 07:30 AM AMBULATORY - MEDICINE [facility] Dec 02, 2023 08:30 AM AMBULATORY - MEDICINE [facility] Dec 02, 2023 11:00 AM AMBULATORY - PSYCHIATRY [facility] ([facility]) Dec 06, 2023 11:27 AM AMBULATORY - [...] of theEncounter. The data comes from all [facility]. Test Date/Time Test Type Test Details Facility Name Oct 28, 2023 12:00 AM Laboratory - Chemi stry Order OCCULT BLOOD FIT X1 SCREEN STOOL FECES SP ONCE [facility]) Nov 25, 2023 12:00 AM Laboratory - Chemi stry Order BASIC METABOLIC PANEL+MG PLASMA SP ONCE [facility] Nov 25, 2023 12:00 AM Laboratory - Chemi stry Order BNP PLASMA SP ONCE [facility] Lab Results: +/- 30 days of the encounter This section includes the Chemistry and Hematology Lab Results on record with [place] for the patient. Radiology Reports and Pathology Reports are provided separately, in subsequent sections. Lab Results This section contains the Chemistry/Hematology Results that were resulted 30 days before or 30 daysafter the date of the Encounter. Date/Time Source Result Type Result - Unit Interpretation Reference Range Comment Oct 28, 2023 10:57 AM [facility]) TSH W/REFLEX TO FREE T4 Specimen Type: PLASMA Comment: Elevated triglyceride result from a non-fasting specimen should be interpreted with caution. A fasting panel is recommended for accurate triglycerides when trigs are >200 from a non-fasting specimen. Ordering Provider: ALOK GUTIERREZ Report Released Date/Time: Oct 28, 2023 10:52 AM Reporting Lab: [facility] [id number] Performing Lab: [facility] [id number] TSH 1.05 u[IU]/mL 0.35-4.94 Oct 28, 2023 10:57 AM [facility]) HEMOGLOBIN A1C Specimen Type: BLOOD Comment: [...] Oct 28, 2023 10:52 AM Reporting Lab: [facility] [id number] Performing Lab: [facility] [id number] HEMOGLOBIN A1C 6.3 H 4.0-6.0 Oct 28, 2023 10:57 AM [facility] ([facility]) LIPID PANEL,NON-FASTING Specimen Type: PLASMA Comment: Elevated triglyceride result from a non-fasting specimen should be interpreted with caution. A fasting panel is recommended for accurate triglycerides when trigs are >200 from a non-fasting specimen. Ordering Provider: ALOK GUTIERREZ Report Released Date/Time: Oct 28, 2023 10:52 AM Reporting Lab: [facility] [id number] Performing Lab: [facility] [address] CHOLESTEROL 146 mg/dL <199 .HDL 38 mg/dL L >40 LDL CALCULATION 47 mg/dL <99 VLDL CALCULATION 61 mg/dL H <29 NON HDL CHOLESTEROL 108 mg/dL <129 TRIG(NON FASTING) 306 mg/dL H <149 Oct 28, 2023 10:57 AM [facility]) BNP Specimen Type: PLASMA No comment entered. Ordering Provider: ALOK GUTIERREZ Report Released Date/Time: Oct 28, 2023 10:52 AM Reporting Lab: [facility] [id number] Performing Lab: [facility] [id number] BNP 24 pg/mL <99 Oct 28, 2023 10:57 AM [facility] ([facility]) COMPREHENSIVE METABOLIC PANEL+MG Specimen Type: PLASMA Comment: Elevated triglyceride result from a non-fasting specimen should be interpreted with caution. A fasting panel is recommended for accurate triglycerides when trigs are >200 from a non-fasting specimen. Ordering Provider: ALOK GUTIERREZ Report Released Date/Time: Oct 28, 2023 10:52 AM Reporting Lab: [facility] [phone] Performing Lab: [facility] [address] CREATININE 1.1 mg/dL 0.7-1.2 UREA NITROGEN 15 [...] 81 >60 Oct 28, 2023 10:57 AM [facility]) CBC & DIFF Specimen Type: BLOOD Comment: Automated Differential Performed Ordering Provider: ALOK GUTIERREZ Report Released Date/Time: Oct 28, 2023 10:52 AM Reporting Lab: [facility] [address] Performing Lab: [facility] [address] WBC 8.29 10*3/uL 4.0-11.0 RBC 6.34 10*6/uL [...] 0.4 ABS IMMATURE GRAN 0.03 10*3/uL 0-0.1 Social History: Smoking Status (Most current) and Tobacco Use (All prior to encounter date) This section includes the most current, and the historical, smoking and tobacco- related health factors from the [place] facility where the Encounter took place. Current Smoking Status This section includes the most current smoking, or tobacco-related health factor, from the [place] facility where the Encounter took place. Date/Time Current Smoking Status Comment Ramos henning Oct 28, 2023 09:45 AM VA-TOBACCO USER EVERY DAY [facility] ([facility]) Tobacco Use History This section includes a history of the smoking, or tobacco-related health factors, that were collected on or before the date of the Encounter. The data comes from the [place] facility where the Encounter took place. Date/Time Smoking Status/Tobacco Use Comment F acility Oct 28, 2023 09:45 AM VA-TOBACCO USE 30 YEARS OR MORE [facility] ([facility]) Oct 28, 2023 09:45 AM VA-TOBACCO USE ADVICE [facility] ([facility]) Oct 28, 2023 09:45 AM VA-TOBACCO USE CONCRETE TESTER NO [facility] ([facility]) Oct 28, 2023 09:45 AM VA-TOBACCO USE MED NO [facility] ([facility]) Oct 28, 2023 09:45 AM VA-TOBACCO USER EVERY DAY [facility] ([facility]) October 01, 2022 11:00 AM VA-TOBACCO USE 30 YEARS OR MORE [facility] ([facility]) October 01, 2022 11:00 AM VA-TOBACCO USE ADVICE [facility] ([facility]) October 01, 2022 11:00 AM VA-TOBACCO USE CONCRETE TESTER NO [facility] ([facility]) October 01, 2022 11:00 AM VA-TOBACCO USE MED NO [facility] ([facility]) October 01, 2022 11:00 AM VA-TOBACCO USE WI 30 MIN OF WAKE UP [facility] ([facility]) October 01, 2022 11:00 AM VA-TOBACCO USER EVERY DAY [facility] ([facility]) Advance Directives: All historical and current Section Date Range: From patient's date of to the date document was created. This section includes ALL of a patient's completed or amended [place] Advance and Rescinded Directives. The entries below indicate that a directive exists for the patient, but an actual copy is not included with this document. The data comes from all [place] facilities. Date Advance Directives Provider Source Mar 05, 2024 ADVANCE DIRECTIVE DISCUSSION [facility]) September 04, 2022 ADVANCE DIRECTIVE DISCUSSION [facility] Encounter Notes: All associated encounter notes This section contains the clinical notes associated to the Encounter. Date/Time Encounter Note(s) Provider Source Nov 17, 2023 11:31 AM [facility] INTERDISCIPLINARY NOTE: LOCAL TITLE: PRIMARY CARE-MH INTEGRATION EVALUATION STANDARD TITLE: MENTAL HEALTH E & M INTERDISCIPLINARY NOTE DATE OF NOTE: NOV 17, 2023@11:31 ENTRY DATE: NOV 17, 2023@11:31:40 AUTHOR: RANJIT WU EXP COSIGNER: URGENCY: STATUS: COMPLETED PC/MH Functional Assessment - Date of Service: 11/17/2023 Type of Service: Functional Assessment Length of Service: 30 Minutes Collateral contact: CPRS Client's Diagnosis: depression,anxiety Primary Care Provider: Joes Scope of Service/Major Themes/[place] Issues: The purpose of this encounter was to assess for emergent needs and safety concerns. A secondary goal was to determine the most appropriate treatment options within [facility] and/or community resources as indicated upon assessment. Martine was informed of [facility] program services to include; role of life insurance underwriter, length and time of visits, type of follow-up which might occur, documentation of discuss into the medical record, feedback to primary care provider and reporting obligations. REFERRAL PROBLEM: [place] was a warm hand off from for MH services. HISTORY OF PROBLEM: Problem History (Duration/Frequency/Intensit y): [place] reports he has had trouble with low and depressed mood, cry spells, lack of energy (Due to heart problems), difficulty with focus, and guilt. [place] reports he has had issues for a long time. reports feels bad and guilty about being over 52 years old and still needing to rely on his parents, which he owes over 20k to. reports his main concern at this time is finding a place to live. reports he lives in RV but has no electricity. [place] reports he is currently owes $700-$800 for electricity bill. Martine currently lives in RV with and her disabled brother. reports fam wants his RV moved by the end of the month. reports he has plans on moving close to [place], [place]. [place] denies any SI or history of suicidal thoughts or attempts. Treatment History: No history of MH treatment. Exacerbating Factors: financial stress, living situation, feeling guilty about missing 's appts. Alleviating Factors: fishing, hunting Other Problems of Concern to [place]: MEASUREMENT BASED CARE: PHQ-9 Depression Assessment indicated the following: PHQ-9 SCORE: 20 ( ) Minimal Depression (1-4) ( ) Mild Depression (5-9) ( ) Moderate Depression (10-14) ( ) Moderately Severe Depression (15-19) (x) Severe Depression (20-27) CIARA-7 Anxiety Assessment indicated the following: CIARA-7 Score: 14 ( ) Minimal Anxiety (1-4) ( ) Mild Anxiety (5-9) (x) Moderate Anxiety (10-14) ( ) Severe Anxiety (15-21) Insomnia Severity Index: n/a ( ) No clinically significant insomnia (0-7) ( ) Subthreshold Insomnia (8-14) ( ) Clinical Insomnia ? moderate severity (15-21) ( ) Clinical Insomnia ? severe (22-28) FUNCTIONAL ASSESSMENT: Medical: reports he recently had congestive heart failure. reports heart has improved since he started receiving treatment/medications. Sleep: reports he gets little sleep. [place] reports he averages 1-2 hours per night. [place] reports he has trouble shutting mind off. [place] reports he has no good place to fall asleep, a place to call home. Work: [place] reports he is currently not working. 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 reports he plans on working at [employer] in [place], [place]. Relationships: reports he is currently living in RV home with and 's adopted brother (52 years old), who he described as handicap. [place] reports bio kids with , has adult kids. [place] reports cannot work at this time due to medical conditions. reports also receives disability ($500/month). receives $2300 per month. reports he has debt from bills and borrowed money from people. [place] reports he owes mom and dad over 20k over the last couple years. [place] reports he feels guilty about not being able to help take care of . [place] reports increase in argument due to current situation. Recreation: no concerns Physical Activity: no concerns Alcohol Use: no alcohol use Tobacco: [place] chews tobacco and minimal cigarette use Drugs: no drug use Caffeine: No concerns C-SSRS Secondary Screen: 1. Over the past month, have you wished you were or wished you could go to sleep and not wake up? No 2. Over the past month, have you had any actual thoughts of killing yourself? No 3. Over the past month, have you been thinking about how you might do this? Response not required due to responses to other questions. 4. Over the past month, have you had these thoughts and had some intention of acting on them? Response not required due to responses to other questions. 5. Over the past month, have you started to work out or worked out the details of how to kill yourself? Response not required due to responses to other questions. 6. If yes, at any time in the past month did you intend to carry out this plan? Response not required due to responses to other questions. 7. In your lifetime, have you ever done anything, started to do anything, or prepared to do anything to end your life (for example, collected pills, obtained a gun, gave away valuables, went to the roof but didn't jump)? No 8. If YES, was this within the past 3 months? Response not required due to responses to other questions. SUICIDE RISK ASSESSMENT (Determined During Ttnq-pc-Hksj Evaluation) PART 1 CURRENT RISK FACTORS [ ] Current thoughts of self-harm or suicide [ ] Intent to harm self [ ] Current and specific plan to harm self [ ] Means of carrying out plan [ ] Feelings of hopelessness or helplessness [ ] [place] denies any of the above risk factors (If this box is checked the remainder of the suicide risk assessment does NOT need to be completed and will not appear) If the patient answers yes to any of the above risk factors then the full suicide risk assessment MUST be completed. -As the did not endorse the above current risk factors, the remainder of the assessment did not warrant completion. PART 2 OTHER CURRENT RISK FACTORS [ ] Patient (suicidal ideation) [ ] Patient (previous suicide attempt(s)) [ ] Family (attempts among first degree relatives) [ ] Mental health diagnosis [x] Sleep disturbances (unable to sleep or sleeping all the time) [ ] Impulsivity/poor self-control [ ] Recent discharge from an inpatient psychiatric unit [ ] Other: Social/demographic risk factors (check all that apply): [ ] Elderly (65+) [ ] Young adult (15-24) [ ] Unmarried [x] White [x] Male [ ] Living alone [ ] Current alcohol and/or drug use [ ] Chronic physical disorder or pain [ ] Access to firearms [ ] History of abuse (physical, sexual, or emotional) [ ] Same sex sexual orientation [ ] None identified Current psychosocial stressors/recent losses (check all that apply): [x] Marriage [x] Home and family life [x] Employment [x] Health (especially a newly diagnosed problem or worsening symptoms) [x] Finances [ ] Legal [ ] Other: [ ] None identified PROTECTIVE FACTORS [ ] Positive Future Plans [ ] Positive Social Support [x] Sense of Responsibility to Family/Significant Other [ ] Children in the Home, [ ] Cultural/Mormonism/Spiritual Beliefs [x] Life Satisfaction [ ] Intact Reality Testing Ability [ ] Positive Coping Skills [ ] Positive Problem-Solving Skills [ ] Positive Therapeutic Relationship [ ] Other: OVERALL ASSESSMENT Given the 's presentation at the time of this assessment and considering the above noted risk and protective factors, in my clinical judgment the 's current risk potential for suicidal behavior is: [x] LOW: Patient judged NOT to be at significant risk for self-harm (Plan of Care MUST be completed.) *Education provided to and/or family member/significant other regarding suicide risk/protective factors, and warning signs of suicidal behavior. *Provided (in writing) and/or family member/significant other with the following *Recommend reassessment for suicide risk after any significant change in situational stressors or patient presentation. [ ] MODERATE: Patient judged to be at increased risk of suicide but not imminently dangerous to self (Plan of Care MUST be completed.) *Education provided to and/or family member/significant other regarding suicide risk/protective factors, and warning signs of suicidal behavior. *Provided (in writing) and/or family member/significant other with the following *Recommend reassessment for suicide risk after any significant change in situational stressors or patient presentation. *Education provided to and/or family member/significant other regarding suicide risk/protective factors, and warning signs of suicidal behavior. *Provided (in writing) and/or family member/significant other with the following telephone numbers for use should emergency/crisis situation arise: [facility] (0-018-724-TALK)X1, 911, Nearest ER, etc. *Family member of significant other informed/involved with in the plan. *Mental Health staff contacted and included as identified signer. * and family members advised to limit access to means of suicide. *Voluntary hospitalization offered ? declined. does not meet criteria for Involuntary hospitalization. *Increased outpatient follow-up / appointments. Next appointment date/time: Responsible clinician: . [ ] HIGH: Patient judged to be at imminent risk for self-harm (Plan of Care MUST be completed.) *Family member of significant other informed/involved with in the plan. *Escorted to the ER for psychiatric evaluation for admission. *Patient directly admitted to appropriate psychiatric inpatient services. *Involuntary commitment procedures initiated *Other MENTAL STATUS: was alert and oriented to person, place, time. Mood was euthymic, affect was flat. Speech was within normal limits, thought process was coherent and goal-directed. No delusions were elicited and there was no evidence of internal stimuli. denied current suicidal ideation or homicidal ideation, plan and intent. PATIENT EDUCATION PROVIDED: [facility] Import Clerk provided psychoeducation related to mental health symptoms, diagnosis, community resources (MACV, CVSO) and treatment options. [employer]ETERANS GOALS FOR CHANGE: The identified goal as to learn to increase focus and energy. BEHAVIORAL CHANGE PLAN: Safety Plan: [place] was informed of this clinic's operational hours (8A-4P on weekdays) and availability of local ER, 911 and [place]'s Crisis Hotline number (1-770-441- TALK/8255) which [place] can access in the event of suicidal ideations, homicidal ideations, auditory/visual hallucinations, increasing substance use, or worsening of psychiatric symptoms. Patient was given the contact phone numbers for this clinic and this provider's direct extension. expressed understanding. was educated on ability to walk into the [facility] for non-urgent mental health and/or medical assistance from 8am to 4 PM. directed to report to the nearest emergency room for urgent mental health or medical issues. [place] was educated on the [facility] Crisis Line for assistance with triaging mental health concerns and encouraged the use of [facility] emergency room for crisis situations. Treatment Plan/Disposition: -[place] is to [facility] for continued brief individual psychotherapy with [facility] Import Clerk. -[place] will contact [facility] and [facility] for available resources - [place] is in need of continued Mental Health Services to maintain stabilization, prevent further deterioration and/or relapses. -[place]'s care is to be managed in Primary Care with the support of [facility]. - 's need may be met within a Primary Care setting for ongoing management of: DEP/ANX. PC Provider consultation with [place] Provider will be available as needed in the event of significant deterioration or change in patient's condition. The benefits, side-effect profile, alternatives and rationale to the above treatment plan and medications were discussed with the [place] and the participated and agreed to the plan. Plan will be reviewed with patient every session. /goldie/ [employer] ADJUSTMENT COUNSELOR Signed: 11/17/2023 11:32 RANJIT WU [facility] ([facility]) Nov 17, 2023 11:25 AM SUICIDE PREVENTION RISK ASSESSMENT SCREENING NOTE: LOCAL TITLE: [place] SCREENING NOTE STANDARD TITLE: SUICIDE PREVENTION RISK ASSESSMENT SCREENING NOT DATE OF NOTE: NOV 17, 2023@11:25 ENTRY DATE: NOV 17, 2023@11:25:34 AUTHOR: RANJIT WU EXP COSIGNER: URGENCY: STATUS: COMPLETED C-SSRS Screening [place]-Suicide Severity Rating Scale (C-SSRS Screener) 1. Over the past month, have you wished you were or wished you could go to sleep and not wake up? No 2. Over the past month, have you had any actual thoughts of killing yourself? No 3. Over the past month, have you been thinking about how you might do this? Response not required due to responses to other questions. 4. Over the past month, have you had these thoughts and had some intention of acting on them? Response not required due to responses to other questions. 5. Over the past month, have you started to work out or worked out the details of how to kill yourself? Response not required due to responses to other questions. 6. If yes, at any time in the past month did you intend to carry out this plan? Response not required due to responses to other questions. 7. In your lifetime, have you ever done anything, started to do anything, or prepared to do anything to end your life (for example, collected pills, obtained a gun, gave away valuables, went to the roof but didn't jump)? No 8. If YES, was this within the past 3 months? Response not required due to responses to other questions. /goldie/ RANJIT WU [employer] ADJUSTMENT COUNSELOR Signed: 11/17/2023 11:31 RANJIT WU [facility])
--- OUTSIDE RECORDS SUMMARY | 2024-05-15 21:45 | XMS_ITS | Encounter Summary ---
Author Name [facility] [place] [place] Organization [facility] [place] Address [address] [place] [address] Care Team Providers Care Salmon Gillnet Vessel Operator Name Role Phone ALOK GUTIERREZ Primary Care Provider Unavailabl e Selected Encounter This section includes the information on record at [place] for the Encounter. Date/Time Encounter Type Encounter Description Reason Provider Source Aug 28, 2023 10:00 AM OFFICE O/P EST HI 40 MIN CARDIOLOGY ICD-10-CM I50.9 Heart failure, unspecified SIMEGN,MENGIST U A IHE Encounter Template Text not used by [place] Assessments - Encounter Diagnoses This section includes the primary and secondary diagnoses documented for the Encounter. Date/Time Primary/Secondary Diagnosis Diagnosis Name Provider Source Aug 28, 2023 05:26 PM PRIMARY Heart failure, unspecified [place] NAVI Simmons [facility] Aug 28, 2023 05:26 PM SECONDARY Obesity, unspecified SIMEGN,HEIDES NAVI A [facility] Aug 28, 2023 05:26 PM SECONDARY Ventricular premature depolarization HEIDE LEDESMAS NAVI [facility] Plan of Treatment: Future Appointments (+ 6 [...] Date/Time Appointment Type Appointme nt Facility Name Oct 28, 2023 09:45 AM AMBULATORY - MEDICINE [facility] ([facility]) Nov 17, 2023 11:00 AM AMBULATORY - PSYCHIATRY RO [facility] ([facility]) Nov 24, 2023 02:00 PM AMBULATORY - REHAB MEDICIN E [facility] Dec 02, 2023 07:30 AM [facility] Dec 02, 2023 08:30 AM [facility] - MEDICINE [place] [facility] Dec 02, 2023 11:00 AM AMBULATORY - PSYCHIATRY [facility] ([facility]) Dec 06, 2023 11:27 AM AMBULATORY - NONE [place] [facility] Lab Results: +/- 30 days of [...] Result - Unit Interpretation Reference Range Comment Aug 28, 2023 07:[address] [facility] BNP Specimen Type: PLASMA No comment entered. Ordering Provider: HONG URBAN Report Released Date/Time: Apr 17, 2023 10:39 AM Reporting Lab: [facility] [id number] Performing Lab: [facility] [id number] BNP 85 pg/mL <99 Aug 28, 2023 07:[address] [facility] BASIC METABOLIC PANEL+MG Specimen Type: PLASMA No comment entered. Ordering Provider: HONG URBAN Report Released Date/Time: Apr 17, 2023 10:39 AM Reporting Lab: [facility] [id number] Performing Lab: [facility] [id number] CREATININE 0.9 mg/dL 0.7-1.2 UREA NITROGEN 16 mg/dL 8-26 GLUCOSE 222 mg/dL H 70-100 SODIUM 137 mmol/L 136-145 POTASSIUM 4.0 mmol/L 3.5-5.1 CHLORIDE 105 mmol/L 98-107 CO2 23 mmol/L 22-29 CALCIUM 9.3 mg/dL 8.4-10.2 MAGNESIUM 2.2 mg/dL 1.6-2.6 ANION GAP 9 mmol/L 5-15 .CREAT EGFR(CKD-EPI ) >90 >60 Aug 28, 2023 07:[address] [facility] CBC Specimen Type: BLOOD No comment entered. Ordering Provider: HONG URBAN Report Released Date/Time: Apr 17, 2023 10:39 AM Reporting Lab: [facility] [id number] Performing Lab: [facility] [id number] WBC 6.83 10*3/uL 4.0-11.0 RBC 5.85 10*6/uL 4.6-6.2 HGB 18.7 g/dL H 13.5-17.9 HCT 52.4 41-54 MCV 89.6 fL 80-100 MCH 32.0 pg 27-33 MCHC 35.7 g/dL 32.0-37.5 PLT 216 10*3/uL 150-400 MPV 9.4 fL 7.4-10.4 RDW 12.9 11.5-14.5 Vital Signs: All taken on the encounter date This section contains inpatient and outpatient Vital Signs collected on the date of the Encounter. Date/Time Temperature Pulse Blood Pressure Respiratory Rate SP02 Pain Height Weight Body Mass Index Source Aug 28, 2023 09:47 AM 80 138/89 18 95 0 256.8 36 [place] [facility] Advance Directives: All historical and current Section [...] 2022 ADVANCE DIRECTIVE DISCUSSION DARVIN DEE [facility] Encounter Notes: All associated encounter notes This section contains the clinical notes associated to the Encounter. Date/Time Encounter Note(s) Provider Source Aug 28, 2023 09:55 AM CARDIOLOGY ATTENDI NG OUTPATIENT NOTE: LOCAL TITLE: CARDIOLOGY CLINIC NOTE STANDARD TITLE: CARDIOLOGY ATTENDING OUTPATIENT NOTE DATE OF NOTE: AUG 28, 2023@09:55 ENTRY DATE: AUG 28, 2023@09:56:13 AUTHOR: ESMER LEDESMA COSIGNER: URGENCY: STATUS: COMPLETED CARDIOLOGY HEART FAILURE CLINIC Chief complaint: Mr. Balderas presented for follow-up of his heart failure with reduced ejection fraction. He was accompanied by his and friend during clinic visit. List of cardiovascular and related medical problems 1. Heart failure with improved ejection fraction, stage C, functional class II, diagnosed August 2021 a. Secondary to nonischemic dilated cardiomyopathy, christiano ejection fraction 14% (CMR, summer 2022), EF 08/28/2023: 53% b. Coronary angiogram without obstructive coronary artery disease, 10/22/2021 c. Cardiac MRI wtih non-specific myocardial scar in non-ischemic pattern d. 3-generation family history negative for possible familial cardiomyopathy e. Probable hypertensive heart disease/LUZMA related 2. Primary hypertension 3. Obstructive sleep apnea, untreated. 4. History of upper extremity DVT 5. Active tobacco use 6. Elevated BMI 7. Obstructive sleep apnea, not on CPAP 8. Previous history of substance use disorder, in remission 9. Prediabetes, hemoglobin A1c 6.4% 2022 Interval history: Since he was last seen in mid-April 2023, there has not been any significant cardiovascular or medical events including emergency department visits or hospitalizations. He takes his medications in 5 out of 7 days. When he does not take his medications, notes leg swelling and feels short of breath and/panicked. Otherwise, he is able to walk 6-12 blocks. Limiting symptom is fatigue and shortness of breath. He can climb 2 flights of stairs. He sleeps with 2 pillows and denies PND. His tells me that he snores a lot and has frequent apneic spells. He does not use a CPAP. When he wakes up in the morning, he feels fatigued and tired. He has episodes of near sleep at red light stop. No near misses. He does note occasional brief intermittent palpitations. Had 3 episodes of near syncope over the last 6 months but no kyler syncope. Episodes occur when changing position quickly. He did not bring his medication and unsure which medication he is taking. Transthoracic echocardiogram completed today showed lower limits of normal systolic function with ejection fraction 50-55%. No regional wall motion abnormalities. No hemodynamically significant valvular heart disease. Normal RV size and function. Normal estimated right atrial pressure based on size of IVC. Additional data: Twelve-lead EK bpm with normal R wave progression, and without pathology Q waves. There are frequent monomorphic ventricular ectopies in a right bundle branch block pattern and superior axis. Labs: CBC: Hemoglobin 18.7. Normal MCV. Normal platelet and WBC count. Creatinine 0.9 with estimated GFR greater than 90, potassium 4.0, sodium 137, BUN 16, magnesium two-point BNP: 85. Peak in September 2022 at 308. Transthoracic echocardiogram August 28, 2023: Upper limits of normal left ventricular size, mildly increased wall thickness and lower limits of normal systolic function with 3D calculated ejection fraction of 53%. No regional left ventricular wall motion abnormalities. Frequent ventricular ectopics noted. Estimated filling pressure appears normal. Cardiac MRI Summer 2022: Severely dilated left ventricle with severely reduced systolic function, LVEF 14%. Borderline dilated right ventricle with moderately reduced systolic function, RVEF 24%.Non ischemic pattern of myocardial fibrosis in the septal and inferior segments concerning for genetic cardiomyopathy. Consider genetic testing for further evaluation. List of cardiovascular medications: Empagliflozin 12.5 mg daily, metoprolol succinate 200 mg daily, spironolactone 50 mg daily, torsemide 20 mg daily, atorvastatin 20 mg daily sacubitril/valsartan 49-51 1 tablet twice daily. Assessment and medical decision making 1. Heart failure with improved ejection fraction, stage C NYHA functional class II: Overall LV systolic function has markedly improved. Based on echocardiogram, estimated right atrial pressure is normal. Clinically, he appears euvolemic. I took 3 generation family history including his siblings (1 brother and sister), parents, uncles and aunt, and grandparents for possible familial/genetic cardiomyopathy. No family history of sudden cardiac , enlarged heart, cardiomyopathy or heart failure. After discussing in detail with him, it appears that he was drinking significantly at that time and working too hard. 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 Although he continues to drink, he is not drinking heavily to the point of intoxication etc. He does not use recreational drugs. He has been taking his medication 80% of the time. Plan: He does not know his medications and what doses he is taking and therefore we will call him to clarify. Given intermittent orthostatic dizziness, I will reduce Entresto from intermediate dose to low dose 24-26 mg after clarifying dose. Will have him come back in about 3 months for reevaluation with one of our heart failure nurses. 2. Frequent ventricular ectopy: This appears monomorphic with RBBB pattern and superior axis. We will do extended Holter monitor to assess burden of ventricular ectopy and consider referral to EP if over 5%. 3. Untreated obstructive sleep apnea: Based on history, he has probably severe sleep apnea. This is a risk factor for heart failure and atrial fibrillation. We will ask our front end drupal developer to schedule him with a primary care provider. 4. Prediabetes: Hemoglobin A1c a year ago 6.4%. Will need follow-up with PCP for evaluation and optimization. Given obesity and sleep apnea, he might benefit from GLP-1 RA. 5. Possible secondary polycythemia: Hemoglobin has been elevated up to 19.8 since July 2020. This predates initiation of diuretics and empagliflozin. He used to smoke a pack a day however he is smoking 1 to 2 cigarettes a day. This may need further evaluation by his primary care team. 6. Tobacco use disorder: Cut down from a pack a day down to 1-2 cigarettes a day. Congratulated him on cutting down tobacco and counseled him on the importance of cessation if possible. Follow-up in 3 months with heart failure nurses for evaluation of volume status and follow-up of his ventricular ectopy Active problems - Computerized Problem List is the source for the followin. HTN - Hypertension ([facility] [id number]) 2. Obesity 3. Sleep apnea 4. Nicotine dependence 5. Tobacco use - 1 can /wk 6. Muscle fasciculation - lt side of face 7. CHF - Congestive Heart Failure ([facility] [id number]) - EF 30% , LV hypokinesis ECHO 08/30/21 [facility] 8. 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 Was recommended to get Botox inj. 9. Thoracic outlet syndrome - Had DVT in rt upper extremity in 2012 treated with coumudin 10. Varicose veins - Rt upper extremity Allergies: CONTRAST MEDIA (September 28, 2021) PENICILLIN (September 28, 2021) Active and Recently Outpatient Medications (including Supplies): Active Outpatient Medications Status 1) ACETAMINOPHEN 500MG TAB TAKE TWO TABLETS BY MOUTH ACTIVE EVERY 8 HOURS NEEDED FOR SHOULDER PAIN *NOT TO EXCEED 4000MG IN 24 HOURS FROM ALL SOURCES* 2) ATORVASTATIN CALCIUM 20MG TAB TAKE ONE TABLET BY ACTIVE MOUTH EVERY DAY FOR CHOLESTEROL 3) DICLOFENAC NA 1% TOP GEL APPLY 4 GRAMS TOPICALLY ACTIVE THREE TIMES A DAY TO AFFECTED AREA FOR PAIN. *USE DOSE CARD IN BOX TO MEASURE DOSE. MAX 32 GRAMS PER DAY. 4) EMPAGLIFLOZIN 25MG TAB TAKE ONE-HALF TABLET BY MOUTH ACTIVE EVERY DAY FOR HEART FAILURE 5) METOPROLOL SUCCINATE 200MG SA TAB TAKE ONE TABLET BY ACTIVE MOUTH EVERY DAY FOR HEART FAILURE 6) NICOTINE 14MG/24HR PATCH APPLY 1 PATCH TOPICALLY ACTIVE EVERY DAY TO QUIT TOBACCO 7) SPIRONOLACTONE 25MG TAB TAKE TWO TABLETS BY MOUTH ACTIVE EVERY DAY FOR HEART FAILURE 8) TORSEMIDE 20MG TAB TAKE ONE TABLET BY MOUTH EVERY DAY ACTIVE FOR EXCESS FLUID Inactive Outpatient Medications Status 1) ASPIRIN 81MG CHEW TAB CHEW ONE TABLET BY MOUTH EVERY DAY FOR HEART DISEASE 2) EMPAGLIFLOZIN 25MG TAB TAKE ONE-HALF TABLET BY MOUTH DISCONTINUED EVERY DAY FOR HEART FAILURE 3) FUROSEMIDE 20MG TAB TAKE ONE TABLET BY MOUTH EVERY DISCONTINUED MORNING 4) METOPROLOL SUCCINATE 100MG SA TAB TAKE ONE TABLET BY DISCONTINUED MOUTH EVERY DAY FOR HEART FAILURE (EDIT) 5) METOPROLOL SUCCINATE 25MG SA TAB TAKE THREE TABLETS DISCONTINUED BY MOUTH EVERY DAY FOR HEART FAILURE (EDIT) 6) METOPROLOL SUCCINATE 25MG SA TAB TAKE ONE TABLET BY DISCONTINUED MOUTH TWICE A DAY FOR HEART FAILURE (EDIT) 7) METOPROLOL SUCCINATE 25MG SA TAB TAKE ONE TABLET BY DISCONTINUED MOUTH EVERY DAY FOR HEART FAILURE (EDIT) 8) NICOTINE POLACRILEX 2MG MINI LOZENGE DISSOLVE 1 MINI LOZENGE IN MOUTH EVERY HOUR NEEDED TO QUIT TOBACCO 9) NITROGLYCERIN 0.4MG SL TAB DISSOLVE ONE TABLET UNDER THE TONGUE EVERY 5 MINUTES FOR UP TO 3 DOSES IF NEEDED FOR CHEST PAIN REFILLS PER PCP 10) SACUBITRIL 49MG/VALSARTAN 51MG TAB TAKE 1 TABLET BY MOUTH TWICE A DAY FOR HEART FAILURE 11) SPIRONOLACTONE 25MG TAB TAKE ONE TABLET BY MOUTH DISCONTINUED EVERY DAY FOR HEART FAILURE (EDIT) 19 Total Medications Family/Social History: () Not applicable to today's visit. EXAM: VS: BP: 138/89 (08/28/2023 09:47) Pulse:80 (08/28/2023 09:47) Resp: 18 (08/28/2023 09:47) Pain: 0 (08/28/2023 09:47) Weight: WEIGHTS IN LAST 6 MONTHS: 256.8 (AUG 28, 2023@09:47:57) 251 (APR 17, 2023@10:03:35) He is alert and oriented, comfortable and not in distress. Central obesity. Flat JVP, regular heart sounds with normal S1 and S2. No S3 or S4 gallop. No thyromegaly [place] conjunctiva and anicteric sclera. No cyanosis. Good air entry bilaterally without crackles or wheezes. Warm lower extremity, no significant peripheral edema. He is alert and oriented. No apparent focal neurologic deficit. Symmetric muscle mass and strength. Data/Labs: WBC: 6.83 RBC: 5.85 HGB: 18.7 H HCT: 52.4 MCV: 89.6 MCH: 32.0 MCHC: 35.7 RDW: 12.9 PLT: 216 MPV: 9.4 GLUCOSE: 222 H UREA NITROGEN: 16 CREATININE: 0.9 SODIUM: 137 POTASSIUM: 4.0 CHLORIDE: 105 CO2: 23 CALCIUM: 9.3 MAGNESIUM: 2.2 ANION GAP: 9 CREATININE EGFR (CKD-EPI): >90 B-TYPE NATRIURETIC PEPTIDE: 85 ( Yes)Patient was informed of available lab, imaging, and other study results associated with today's visit. /david LEDESMA MD STAFF CRAB FISHERMAN Signed: 08/29/2023 08:[address] [facility] Aug 28, 2023 09:48 AM INTERNAL MEDICINE OUTPATIENT NOTE: LOCAL TITLE: MEDICINE CLINIC NURSING NOTE STANDARD TITLE: INTERNAL MEDICINE OUTPATIENT NOTE DATE OF NOTE: AUG 28, 2023@09:48 ENTRY DATE: AUG 28, 2023@09:48:48 AUTHOR: LALO HARLEY EXP COSIGNER: URGENCY: STATUS: COMPLETED TYPE OF VISIT: Appointment Check In Type of appointment: In-person appointment REASON FOR VISIT: scheduled visit ALLERGIES: CONTRAST MEDIA (September 28, 2021) PENICILLIN (September 28, 2021) VITAL SIGNS: Blood Pressure: 138/89 (08/28/2023 09:47) Pulse: 80 (08/28/2023 09:47) Respiration: 18 (08/28/2023 09:47) Temperature: 97.3 F [36.3 C] (04/17/2023 10:03) Weight: 256.8 lb [116.48 kg] (08/28/2023 09:47) Height: 71 in [180.3 cm] (10/01/2022 11:27) BMI: 35.9 O2 Sat: 95% (08/28/2023 09:47) Pain: 0 (08/28/2023 09:47) PAIN SCREEN: Patient is not having significant pain that they wish to discuss with their provider today. MEDICATION Over the Counter/Herbal Medications: The patient denies taking any outside medications or herbals. /david HARLEY LPN LPN Signed: 08/28/2023 09:[address] [facility]
--- OUTSIDE RECORDS SUMMARY | 2024-05-15 21:45 | XMS_ITS | Encounter Summary ---
Author Name [facility] [place] [place] Organization [facility] [place] Address [address] [place] [address] Care Team Providers Care Forest Resource Specialist Name Role Phone ALOK GUTIERREZ Primary Care Provider Unavailabl e Selected Encounter This section includes the information on record at [place] for the Encounter. Date/Time Encounter Type Encounter [...] this document. The data comes from all [place] facilities. Date Advance Directives Provider Source Mar 05, 2024 ADVANCE DIRECTIVE DISCUSSION MISBAH SILVESTRE ([facility]) September 04, 2022 ADVANCE DIRECTIVE DISCUSSION DARVIN DEE [facility]
--- OUTSIDE RECORDS SUMMARY | 2024-05-15 21:45 | XMS_ITS | Encounter Summary ---
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 by Mental Health Routine/Non-emergent Mental Health Evaluation needed. Comment: will follow up with mental health Medication Reconciliation: Education Evaluations *Was medication education provided for NEW medications or CHANGES to medications? (including medication name, dose, route, reason for use, and potential side effects). Yes. Verbal education was provided to patient/caregiver and patient/caregiver verbalized understanding. TERATOGENIC MED & CONTRACEPTION REVIEW (Optional)... MEDICATION RECONCILIATION Active and Recently Outpatient Medications (including Supplies): Issue Date Status Last Fill Active Outpatient Medications Refills Expiration 1) ASPIRIN 81MG CHEW TAB Qty: 108 for 90 ACTIVE (S) Issu:09-01-23 days Sig: CHEW ONE TABLET BY MOUTH Refills: 2 Last:11-21-23 EVERY DAY FOR HEART DISEASE Expr:09-01-24 2) ATOMOXETINE 40MG CAP Qty: 30 for 30 ACTIVE (S) Issu:10-28-23 days Sig: TAKE ONE CAPSULE BY MOUTH Refills: 11 Last:10-28-23 EVERY DAY FOR ATTENTION Expr:10-28-24 3) ATORVASTATIN CALCIUM 20MG TAB Qty: 90 ACTIVE (S) Issu:10-17-23 for 90 days Sig: TAKE ONE TABLET BY Refills: 3 Last:11-17-23 MOUTH EVERY DAY FOR CHOLESTEROL Expr:10-17-24 4) EMPAGLIFLOZIN 25MG TAB Qty: 45 for 90 ACTIVE Issu:06-25-23 days Sig: TAKE ONE-HALF TABLET BY Refills: 2 Last:10-16-23 MOUTH EVERY DAY FOR HEART FAILURE Expr:06-25-24 5) METOPROLOL SUCCINATE 200MG SA TAB Qty: ACTIVE Issu:04-17-23 90 for 90 days Sig: TAKE ONE TABLET Refills: 2 Last:10-16-23 BY MOUTH EVERY DAY FOR HEART FAILURE Expr:04-17-24 6) SACUBITRIL 49MG/VALSARTAN 51MG TAB Qty: ACTIVE (S) Issu:10-08-23 180 for 90 days Sig: TAKE 1 TABLET BY Refills: 2 Last:12-28-23 MOUTH TWICE A DAY FOR HEART FAILURE Expr:10-08-24 7) SILDENAFIL CITRATE 25MG TAB Qty: 18 for ACTIVE (S) Issu:10-28-23 90 days Sig: TAKE ONE TABLET BY MOUTH Refills: 3 Last:10-28-23 ONCE NEEDED FOR ERECTILE Expr:10-28-24 DYSFUNCTION 8) SPIRONOLACTONE 25MG TAB Qty: 180 for 90 ACTIVE Issu:12-12-22 days Sig: TAKE TWO TABLETS BY MOUTH Refills: 2 Last:10-08-23 EVERY DAY FOR HEART FAILURE Expr:12-13-23 9) TORSEMIDE 20MG TAB Qty: 90 for 90 days ACTIVE Issu:12-12-22 Sig: TAKE ONE TABLET BY MOUTH EVERY Refills: 2 Last:06-23-23 DAY FOR EXCESS FLUID Expr:12-13-23 Issue Date Status Last Fill Inactive Outpatient Medications Refills Expiration 1) ACETAMINOPHEN 500MG TAB Qty: 600 for 90 Issu:10-01-22 days Sig: TAKE TWO TABLETS BY MOUTH Refills: 2 Last:06-30-23 EVERY 8 HOURS NEEDED FOR SHOULDER Expr:10-02-23 PAIN *NOT TO EXCEED 4000MG IN 24 HOURS FROM ALL SOURCES* 2) ASPIRIN 81MG CHEW TAB Qty: 108 for 90 DISCONTINUED Issu:08-20-22 days Sig: CHEW ONE TABLET BY MOUTH Refills: 2 Last:01-03-23 EVERY DAY FOR HEART DISEASE Expr:08-21-23 3) ATORVASTATIN CALCIUM 20MG TAB Qty: 90 DISCONTINUED Issu:10-01-22 for 90 days Sig: TAKE ONE TABLET BY Refills: 2 Last:08-29-23 MOUTH EVERY DAY FOR CHOLESTEROL Expr:10-02-23 4) DICLOFENAC NA 1% TOP GEL Qty: 100 for Issu:10-01-22 30 days Sig: APPLY 4 GRAMS TOPICALLY Refills: 11 Last:10-01-22 THREE TIMES A DAY TO AFFECTED AREA FOR Expr:10-02-23 PAIN. *USE DOSE CARD IN BOX TO MEASURE DOSE. MAX 32 GRAMS PER DAY. 5) FUROSEMIDE 20MG TAB Qty: 90 for 90 days DISCONTINUED Issu:10-01-22 Sig: TAKE ONE TABLET BY MOUTH EVERY Refills: 2 Last:12-20-22 MORNING Expr:10-02-23 6) METOPROLOL SUCCINATE 100MG SA TAB Qty: DISCONTINUED Issu:01-07-23 90 for 90 days Sig: TAKE ONE TABLET (EDIT) Last:01-08-23 BY MOUTH EVERY DAY FOR HEART FAILURE Refills: 3 Expr:01-08-24 7) METOPROLOL SUCCINATE 25MG SA TAB Qty: DISCONTINUED Issu:12-12-22 270 for 90 days Sig: TAKE THREE (EDIT) Last:12-12-22 TABLETS BY MOUTH EVERY DAY FOR HEART Refills: 3 Expr:12-13-23 FAILURE 8) METOPROLOL SUCCINATE 25MG SA TAB Qty: DISCONTINUED Issu:08-20-22 180 for 90 days Sig: TAKE ONE TABLET (EDIT) Last:08-20-22 BY MOUTH TWICE A DAY FOR HEART FAILURE Refills: 3 Expr:08-21-23 9) NICOTINE 14MG/24HR PATCH Qty: 28 for 28 Issu:10-01-22 days Sig: APPLY 1 PATCH TOPICALLY Refills: 1 Last:10-01-22 EVERY DAY TO QUIT TOBACCO Expr:10-02-23 10) SACUBITRIL 49MG/VALSARTAN 51MG TAB Qty: DISCONTINUED Issu:08-20-22 180 for 90 days Sig: TAKE 1 TABLET BY Refills: 3 Last:08-20-22 MOUTH TWICE A DAY FOR HEART FAILURE Expr:08-21-23 19 Total Medications /es/ ALOK GUTIERREZ Physician Signed: 10/28/2023 16:21 ALOK GUTIERREZ ([facility])
--- OUTSIDE RECORDS SUMMARY | 2024-05-15 21:46 | XMS_ITS | Encounter Summary ---
Author Name [facility] [place] [facility] [place] [facility] [place] Address [address] [place] [address] Care Team Providers Care Envelope Folding Machine Adjuster Name Role Phone ALOK GUTIERREZ Primary Care Provider Unavailabl e Selected Encounter This section includes the information on record at [place] for the Encounter. Date/Time Encounter Type Encounter Description Reason Provider Source Apr 09, 2024 04:11 PM HC PRO PHONE CALL 21-30 MIN TELEPHONE/[facility] ICD-10-CM Z59.9 Problem related to housing and economic circumstances, MISBAH Haskins Angelina Encounter Template Text not used by [place] Assessments - Encounter Diagnoses This section includes the primary and secondary diagnoses documented for the Encounter. Date/Time Primary/Secondary Diagnosis Diagnosis Name Provider Source Apr 09, 2024 04:11 PM PRIMARY Problem related to housing and economic circumstances, MISBAH Haskins ([facility]) Social History: Smoking Status (Most current) and Tobacco Use (All prior to encounter date) This section includes the most current, and the historical, smoking and tobacco- related health factors from the [place] facility where the Encounter took place. Current Smoking Status This section includes the most current smoking, or tobacco-related health factor, from the [place] facility where the Encounter took place. Date/Time Current Smoking Status Comment Facil itdanielle Oct 28, 2023 09:45 AM VA-TOBACCO USER EVERY DAY [place] ([facility]) Tobacco Use History This section includes a history of the smoking, or tobacco-related health factors, that were collected on or before the date of the Encounter. The data comes from the [place] facility where the Encounter took place. Date/Time Smoking Status/Tobacco Use Comment F acility Oct 28, 2023 09:45 AM VA-TOBACCO USE 30 YEARS OR MORE [place] ([facility]) Oct 28, 2023 09:45 AM VA-TOBACCO USE ADVICE [place] ([facility]) Oct 28, 2023 09:45 AM VA-TOBACCO USE SYSTEM INTEGRATION ENGINEER NO [place] ([facility]) Oct 28, 2023 09:45 AM VA-TOBACCO USE MED NO [place] ([facility]) Oct 28, 2023 09:45 AM VA-TOBACCO USER EVERY DAY [place] ([facility]) October 01, 2022 11:00 AM VA-TOBACCO USE 30 YEARS OR MORE [place] ([facility]) October 01, 2022 11:00 AM VA-TOBACCO USE ADVICE [place] ([facility]) October 01, 2022 11:00 AM VA-TOBACCO USE SYSTEM INTEGRATION ENGINEER NO [place] ([facility]) October 01, 2022 11:00 AM VA-TOBACCO USE MED NO [place] ([facility]) October 01, 2022 11:00 AM VA-TOBACCO USE WI 30 MIN OF WAKE UP [place] ([facility]) October 01, 2022 11:00 AM VA-TOBACCO USER EVERY DAY [place] ([facility]) Advance Directives: All historical and current Section Date Range: From patient's date of to the date document was created. This section includes ALL of a patient's completed or amended [place] Advance and Rescinded Directives. The entries below indicate that a directive exists for the patient, but an actual copy is not included with this document. The data comes from all [facility]. Date Advance Directives Provider Source Mar 05, 2024 ADVANCE DIRECTIVE DISCUSSION MISBAH SILVESTRE ([facility]) September 04, 2022 ADVANCE DIRECTIVE DISCUSSION DARVIN DEE [facility] Encounter Notes: All associated encounter notes This section contains the clinical notes associated to the Encounter. Date/Time Encounter Note(s) Provider Source Apr 09, 2024 04:11 PM REPORT OF CONTACT: LOCAL TITLE: PATIENT CONTACT NOTE STANDARD TITLE: REPORT OF CONTACT DATE OF NOTE: APR 09, 2024@16:11 ENTRY DATE: APR 09, 2024@16:11:25 AUTHOR: MISBAH SILVESTRE EXP COSIGNER: URGENCY: STATUS: COMPLETED Patient contact Name of [place]: MARCO ANTONIO CALDERON Name/Relationship of Contact if other than : MARLEN Sharp Date & Time of Contact: Apr@16:11 Type of Contact: Telephone Reason for Contact: Modeling And Simulation Analyst phoned to schedule a time to view unit at [facility] with MARLEN Sharp Conference Coordinator. Modeling And Simulation Analyst and plan to meet with Kenisha on 04/14 at 11am. Modeling And Simulation Analyst also emailed Kenisha to confirm the date and time. /goldie/ PRAFUL CORONEL, CASTILLO QUIR[place] RIVETING MACHINE OPERATOR TAPE CONTROL Signed: 04/09/2024 16:18 Receipt Acknowledged By: 04/17/2024 12:43 /es/ VIK DUTTON CLINICAL RIVETING MACHINE OPERATOR TAPE CONTROL,MISBAH KIMBALL ([facility])
--- OUTSIDE RECORDS SUMMARY | 2024-05-15 21:46 | XMS_ITS | Encounter Summary ---
Author Name [facility] [place] [facility] [place] Address [address] [place] [address] Care Team Providers Care Engineer Assistant Name Role Phone ALOK GUTIERREZ Primary Care Provider Unavailabl e Selected Encounter This section includes the information on record at [place] for the Encounter. Date/Time Encounter Type Encounter Description Reason Provider Source May 03, 2024 01:20 PM HC PRO PHONE CALL 5-10 MIN TELEPHONE/[facility] ICD-10-CM Z72.0 Tobacco use MISBAH SILVESTRE Angelina Encounter Template Text not used by [place] Assessments - Encounter Diagnoses This section includes the primary and secondary diagnoses documented for the Encounter. Date/Time Primary/Secondary Diagnosis Diagnosis Name Provider Source May 03, 2024 01:20 PM PRIMARY Tobacco use MISBAH SILVESTRE ([facility]) May 03, 2024 01:20 PM SECONDARY Problem related to housing and economic circumstances, unsp MISBAH SILVESTRE ([facility]) Social History: Smoking Status (Most current) and Tobacco Use (All prior to encounter date) This section includes the most current, and the historical, smoking and tobacco- related health factors from the [place] facility where the Encounter took place. Current Smoking Status This section includes the most current smoking, or tobacco-related health factor, from the [place] facility where the Encounter took place. Date/Time Current Smoking Status Comment Facil juvencio Oct 28, 2023 09:45 AM VA-TOBACCO USER EVERY DAY [place] ([facility]) Tobacco Use History This section includes a history of the smoking, or tobacco-related health factors, that were collected on or before the date of the Encounter. The data comes from the [place] facility where the Encounter took place. Date/Time Smoking Status/Tobacco Use Comment F acility Oct 28, 2023 09:45 AM VA-TOBACCO USE 30 YEARS OR MORE [place] ([facility]) Oct 28, 2023 09:45 AM VA-TOBACCO USE ADVICE [place] ([facility]) Oct 28, 2023 09:45 AM VA-TOBACCO USE BURGLAR ALARM OPERATOR NO [place] ([facility]) Oct 28, 2023 09:45 AM VA-TOBACCO USE MED NO [place] ([facility]) Oct 28, 2023 09:45 AM VA-TOBACCO USER EVERY DAY [place] ([facility]) October 01, 2022 11:00 AM VA-TOBACCO USE 30 YEARS OR MORE [place] ([facility]) October 01, 2022 11:00 AM VA-TOBACCO USE ADVICE [place] ([facility]) October 01, 2022 11:00 AM VA-TOBACCO USE BURGLAR ALARM OPERATOR NO [place] ([facility]) October 01, 2022 11:00 AM VA-TOBACCO USE MED NO [place] ([facility]) October 01, 2022 11:00 AM VA-TOBACCO USE WI 30 MIN OF WAKE UP [place] ([facility]) October 01, 2022 11:00 AM VA-TOBACCO USER EVERY DAY [place] ([facility]) Advance Directives: All historical and current Section Date Range: From patient's date of to the date document was created. This section includes ALL of a patient's completed or amended [place] Advance and Rescinded Directives. The entries below indicate that a directive exists for the patient, but an actual copy is not included with this document. The data comes from all [place] facilities. Date Advance Directives Provider Source Mar 05, 2024 ADVANCE DIRECTIVE DISCUSSION MISBAH SILVESTRE ([facility]) September 04, 2022 ADVANCE DIRECTIVE DISCUSSION DARVIN DEE S [facility] Encounter Notes: All associated encounter notes This section contains the clinical notes associated to the Encounter. Date/Time Encounter Note(s) Provider Source May 03, 2024 01:20 PM REPORT OF CONTACT: LOCAL TITLE: PATIENT CONTACT NOTE STANDARD TITLE: REPORT OF CONTACT DATE OF NOTE: MAY 03, 2024@13:20 ENTRY DATE: MAY 04, 2024@13:22:01 AUTHOR: MISBAH SILVETSRE EXP COSIGNER: URGENCY: STATUS: COMPLETED Patient contact Name of [place]: MARCO ANTONIO CALDERON Name/Relationship of Contact if other than [place]: Brittany Hays, 's spouse Date & Time of Contact: Apr@13:20 Type of Contact: Telephone Reason for Contact: Bilingual School Psychologist returned 's call. 's answered phone stating was dropping a friend off at the store. Brittany stated that [employer] account was temporarily on hold for 48 hours from them trying to reset his password. Brittany believes they should have access to [employer] account tomorrow and will be able to print his bank statements. /goldie/ PRAFUL CORONEL, CASTILLO [facility] COLOR TECHNICIAN Signed: 05/04/2024 13:27 Receipt Acknowledged By: * AWAITING SIGNATURE * RADHA POSADAS ASHLEY M [place] ([facility])
--- OUTSIDE RECORDS SUMMARY | 2024-05-15 21:46 | XMS_ITS | Encounter Summary ---
Author Name [facility] [place] Organization [facility] [place] [place] Address [address] [place] [address] Care Team Providers Care Mid Level Game Designer Name Role Phone ALOK GUTIERREZ Primary Care Provider Unavailabl e Selected Encounter This section includes the information on record at [place] for the Encounter. Date/Time Encounter Type Encounter Description Reason Provider Source Apr 20, 2024 11:00 AM HC PRO PHONE CALL 21-30 MIN TELEPHONE/[facility] ICD-10-CM Z59.00 Homelessness unspecified MISBAH SILVESTRE Encounter Template Text not used by [place] Assessments - Encounter Diagnoses This section includes the primary and secondary diagnoses documented for the Encounter. Date/Time Primary/Secondary Diagnosis Diagnosis Name Provider Source Apr 20, 2024 11:00 AM PRIMARY Homelessness unspecified MISBAH SILVESTRE ([facility]) Social History: Smoking Status (Most current) and Tobacco Use (All prior to encounter date) This section includes the most current, and the historical, smoking and tobacco- related health factors from the [place] facility where the Encounter took place. Current Smoking Status This section includes the most current smoking, or tobacco-related health factor, from the [place] facility where the Encounter took place. Date/Time Current Smoking Status Comment Facil ity Oct 28, 2023 09:45 AM VA-TOBACCO USER EVERY DAY [place] ([facility]) Tobacco Use History This section includes a history of the smoking, or tobacco-related health factors, that were collected on or before the date of the Encounter. The data comes from the [place] facility where the Encounter took place. Date/Time Smoking Status/Tobacco Use Comment F acility Oct 28, 2023 09:45 AM VA-TOBACCO USE 30 YEARS OR MORE [place] ([facility]) Oct 28, 2023 09:45 AM VA-TOBACCO USE ADVICE [place] ([facility]) Oct 28, 2023 09:45 AM VA-TOBACCO USE CARDIOVASCULAR RADIOLOGIC TECHNOLOGIST NO [place] ([facility]) Oct 28, 2023 09:45 AM VA-TOBACCO USE MED NO [place] ([facility]) Oct 28, 2023 09:45 AM VA-TOBACCO USER EVERY DAY [place] ([facility]) October 01, 2022 11:00 AM VA-TOBACCO USE 30 YEARS OR MORE [place] ([facility]) October 01, 2022 11:00 AM VA-TOBACCO USE ADVICE [place] ([facility]) October 01, 2022 11:00 AM VA-TOBACCO USE CARDIOVASCULAR RADIOLOGIC TECHNOLOGIST NO [place] ([facility]) October 01, 2022 11:00 AM VA-TOBACCO USE MED NO [place] ([facility]) October 01, 2022 11:00 AM VA-TOBACCO USE WI 30 MIN OF WAKE UP [place] ([facility]) October 01, 2022 11:00 AM VA-TOBACCO USER EVERY DAY [place] ([facility]) Advance Directives: All historical and current Section Date Range: From patient's date of to the date document was created. This section includes ALL of a patient's completed or amended [place] Advance and Rescinded Directives. The entries below indicate that a directive exists for the patient, but an actual copy is not included with this document. The data comes from all [facility]. Date Advance Directives Provider Source Mar 05, 2024 ADVANCE DIRECTIVE DISCUSSION MISBAH SILVESTRE ([facility]) September 04, 2022 ADVANCE DIRECTIVE DISCUSSION DARVIN DEE ALL [facility] Encounter Notes: All associated encounter notes This section contains the clinical notes associated to the Encounter. Date/Time Encounter Note(s) Provider Source Apr 20, 2024 11:00 AM REPORT OF CONTACT: LOCAL TITLE: PATIENT CONTACT NOTE STANDARD TITLE: REPORT OF CONTACT DATE OF NOTE: APR 20, 2024@11:00 ENTRY DATE: APR 20, 2024@15:01:38 AUTHOR: MISBAH SILVESTRE EXP COSIGNER: URGENCY: STATUS: COMPLETED Patient contact Name of [place]: MARCO ANTONIO CALDERON Name/Relationship of Contact if other than : YARED Russell Date & Time of Contact: Apr@15:01 Type of Contact: Telephone Reason for Contact: Personnel Placement Specialist phoned and was able to obtain 's bank statements. Personnel Placement Specialist met with YARED Russell to discuss veterans application status and documents still needed for application, as well as documents still needed for verification of income. Delta is working on obtaining [place] (brother in-law) bank statements. will also need to submit his VA disability award letter. /goldie/ PRAFUL CORONEL, CASTILLO [facility] CARD FILER Signed: 04/20/2024 15:07 Receipt Acknowledged By: * AWAITING SIGNATURE * RADHA POSADAS ASHLEY M [place] ([facility])
--- OUTSIDE RECORDS SUMMARY | 2024-05-15 21:46 | XMS_ITS | Encounter Summary ---
Author Name [facility] of [facility] [place] Organization [facility] [place] Address [address] [place] [id number] Care Team Providers Care Tree Surgeon Helper Name Role Phone MATT ALOK Primary Care Provider Unavailabl e Selected Encounter This section includes the information on record at [place] for the Encounter. Date/Time Encounter Type Encounter Description Reason Pro vider Source May 12, 2024 02:12 PM Outpatient Encounter TELEPHONE TRIAGE IHE Encounter Template Text not used by CT Advance Directives: All historical and current Section Date Range: From patient's date of to the date document was created. This section includes ALL of a patient's completed or amended CT Advance and Rescinded Directives. The entries below indicate that a directive exists for the patient, but an actual copy is not included with this document. The data comes from all [place] facilities. Date Advance Directives Provider Source Mar 05, 2024 ADVANCE DIRECTIVE DISCUSSION MISBAH SILVESTRE ([facility]) September 04, 2022 ADVANCE DIRECTIVE DISCUSSION DARVIN DEE ALL [facility] Encounter Notes: All associated encounter notes This section contains the clinical notes associated to the Encounter. Date/Time Encounter Note(s) Provider Source May 12, 2024 02:12 PM RN PROGRESS NOTE: LOCAL TITLE: CCC: CLINICAL TRIAGE STANDARD TITLE: RN PROGRESS NOTE DATE OF NOTE: MAY 12, 2024@14:12:01 ENTRY DATE: MAY 12, 2024@14:12:02 AUTHOR: ARISTEO CORTES MA EXP COSIGNER: URGENCY: STATUS: COMPLETED Patient Demographics Patient Name: MARCO ANTONIO CALDERON Patient Primary Address: [address] [place] [address] Patient Primary Phone: [phone] Patient : 1970 Patient Age: 54 Call Back Number: [phone] Caller/Recipient Relation to Patient: Other If Other Describe Relation to Patient: Caller Name: Brittany Emergency Contact: BRITTANY LEDEBTTER Triage Summary Chief Complaint: Thirst (excessive) System WHEN: Within 24 Hours Nurse's Recommendation / WHEN: Within 24 Hours Nurse's Other / WHEN: <24 hours System WHERE: Clinic Nurse's Recommendation / WHERE: Clinic/[facility] Nurse's Other / WHERE: ER Nursing Plan and Disposition Referred patient to higher level of care Instructed to go to Emergency Room (ER) Advised of Financial Disclaimer: Patient advised that recommendation for care provided during the call does not constitute an approval or authorization for payment by the CT or its staff. Patient advised to report a community ED visit to the [facility] Office of Community Care at within 72 hours. Nurse Summary Nurse Summary: PATIENT CONCERN/DURATION/ONSET: Corinna Soto calls to report that is unable to eat. He is urinating every 5-10 minutes. He is tired all the time. No abdominal pain. No nausea or vomiting. He has lost 20 lbs. Constantly thirsty. WHAT HAS PATIENT TRIED TO TREAT THE SYMPTOMS: Gatorade and water HISTORY/PREVIOUS TREATMENT: None WHAT IS PATIENT GOAL FOR THE CALL: Appointment Was Care Now considered (TELE or VVC)? AERONAUTICAL RESEARCH ENGINEER DISPOSITION: Recommended triage is medical attention <24 hours in the ER because the fatigue, excess thirst and excessive urination are all symptoms of possible high blood sugar and likely needs hydration and labs. [place] agreed with plan. Best contact for is (Verified). [phone] This note was created by a [address] employee development specialist. Please do not alert this nurse by adding as a signer for future communications. Alerts are not monitored by this user, please reach out to [facility] Leadership instead if indicated. Clinical Contact Center Codes Clinic/Location: V23 MSP PHONE CCC RN Decision Support System Output: Triage Complete Triage Date: 05/12/2024, 01:56 PM Triage Note: Decision Support Tool Used: [employer] Phone Triage 12 May 2024 19:55:16 +0000 [facility] Demographics 54 y/o Male Results CC: Thirst (excessive) Software suggested: Within 24 Hours Software suggested follow-up location: Clinic Values and Measures Duration of CC: 2 Weeks Positive Responses HPI: increased urinary frequency HPI: paroxysmal nocturnal dyspnea, episodic PMH: CHF VS: temperature not taken Negative Responses Denies: HPI: abdominal pain, lower Denies: HPI: back pain or flank pain, new Denies: HPI: dysuria Denies: HPI: hematuria Denies: HPI: urinary urgency, constant Denies: HPI: weight gain, within past week Denies: PMH: diabetes Denies: PMH: UTI IMPORTANT: This note was created by [facility] Clinical Contact Center staff. Please do not alert the staff member by adding them as a signer for future communications. Alerts are not monitored by this user. /goldie/ ARISTEO CORTES, RN [id number] Daytime inclusion internship Signed: 05/12/2024 14:12 ARISTEO CORTES [facility]
--- OUTSIDE RECORDS SUMMARY | 2024-05-15 21:46 | XMS_ITS | Referral Summary ---
Author Organization [facility] Address [address] [place] [address] Care Team Providers Care Silk Weaver Name Role Phone No Ref-Primary, Physician Primary Care Provider Allergies Active Allergy Reactions Criticality Noted Date Comments Diatrizoate 01/01/2013 Other reaction(s): Edema, Throat Swelling/Closing 01/01/13 Patient c/o throat tightness and mild difficulty swallowing. 01/01/13 Patient c/o throat tightness and mild difficulty swallowing. No Known Allergies 12/22/2009 Penicillins 07/14/2018 Medications aspirin (ASA) 325 MG EC tabletIndicatio ns:Polycythemia Take 1 tablet (325 mg) by mouth daily 07/16/2018 Active lisinopril (PRINIVIL/ZESTR IL) 20 MG tabletIndicatio ns:Essential hypertension, benign Take 1 tablet (20 mg) by mouth daily 30 tablet 1 11/12/2018 Active escitalopram (LEXAPRO) 5 MG tablet Take 1 tablet by mouth daily 08/21/2020 Active hydrochlorothia zide (HYDRODIURIL) 25 MG tablet Take 1 tablet by mouth daily 07/18/2020 Active aspirin (ASA) 81 MG chewable tablet Take 81 mg by mouth daily Active metoprolol succinate ER (TOPROL XL) 25 MG 24 hr tablet 25 mg 08/20/2022 Act nayeli empagliflozin (JARDIANCE) 25 MG TABS tablet 12.5 mg 05/28/2022 Acti ve spironolactone (ALDACTONE) 25 MG tablet 25 mg 06/17/2022 Active sacubitril-vals jose armando (ENTRESTO) 49-51 MG per tablet TAKE 1 TABLET BY MOUTH TWICE A DAY FOR HEART FAILURE 08/20/2022 Active furosemide (LASIX) 20 MG tablet Take 20 mg by mouth 08/30/2021 Active Active Problems Problem Noted Date Diagnosed Date Headache 07/14/2018 Tobacco abuse 12/22/2009 Essential hypertension, benign 11/06/2009 DVT of upper extremity (deep vein thrombosis) Immunizations Name Administration Dates Next Due TDAP Vaccine (Adacel) 09/03/2010 Social History Tobacco Use Types Packs/Day Years Used Date Smoking Tobacco: Every Day Cigarettes 0.2 25 Smokeless Tobacco: Current Chew Tobacco Cessation:Ready to Q uit: No Alcohol Use Standard Drinks/Week Comments Yes 0 (1 standard drink = 0.6 oz pur e alcohol) beer daily AUDIT-C Answer Date Recorded Q1: How often do you have a drink containing alcohol? 4 or more times a week 10/17/2020 Q2: How many drinks containi ng alcohol do you have on a typical day when you are drinking? Not asked Q3: How often do you have si x or more drinks on one occasion? 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 Gender Identity Not on file Sexual Orientation Not on file Last Filed Vital Signs Vital Sign Reading Time Taken Comments Blood Pressure 110/82 10/02/2022 4:26 PM CDT Pulse 90 10/02/2022 4:26 PM CDT Temperature 36.9 C (98.4 F) 10/02/2022 4:26 PM CDT Respiratory Rate 18 10/02/2022 4:2 6 PM CDT Oxygen Saturation 96% 10/02/2022 4:26 PM CDT Inhaled Oxygen Concentration - - Weight 113.9 kg (251 lb 1.7 oz) 023 12:00 PM CDT Height 180.3 cm (5' 11) 10/02/2022 12: 00 PM CDT Body Mass Index 35.02 10/02/2022 12:00 PM CDT Plan of Treatment Not on file Procedures Procedure Name Priority Date/Time Associated Diagnosis Comments CBC WITH PLATELETS & DIFFERENTIAL Routine 07/15/2018 6:56 AM CDT Acute intractable headache, unspecified headache type BASIC METABOLIC PANEL Routine 07/15/2018 6:56 AM CDT Acute intractable headache, unspecified headache type from Last 3 Months or Most Recently Relevant to Health Maintenance Results * (ABNORMAL) CBC with platelets differential (07/15/2018 6:56 AM CDT) WBC 7.2 4.0 - 11.0 10e9/L 07/15/2018 7:29 AM [facility] RBC Count 6.43(H) 4.4 - 5.9 10e12/L 07/15/2018 7:29 AM [facility] Hemoglobin 19.5(H) 13.3 - 17.7 g/dL 07/15/2018 7:29 AM [facility] Hematocrit 57.1(H) 40.0 - 53.0 % 07/15/2018 7:29 AM [facility] MCV 89 78 - 100 fl 07/15/2018 7:29 AM [facility] MCH 30.3 26.5 - 33.0 pg 07/15/2018 7:29 AM [facility] MCHC 34.2 31.5 - 36.5 g/dL 07/15/2018 7:29 AM [facility] RDW 12.8 10.0 - 15.0 % 07/15/2018 7:29 AM [facility] Platelet Count 238 150 - 450 10e9/L 07/15/2018 7:29 AM [facility] Diff Method Automated Method 07/15/2018 7:29 AM [facility] % Neutrophils 60.7 % 07/15/2018 7:29 AM [facility] % Lymphocytes 28.3 % 07/15/2018 7:29 AM [facility] % Monocytes 7.1 % 07/15/2018 7:29 AM [facility] % Eosinophils 2.6 % 07/15/2018 7:29 AM [facility] % Basophils 0.6 % 07/15/2018 7:29 AM [facility] % Immature Granulocytes 0.7 % 07/15/2018 7:29 AM [facility] Nucleated RBCs 0 0 /100 07/15/2018 7:29 AM [facility] Absolute Neutrophil 4.4 1.6 - 8.3 10e9/L 07/15/2018 7:29 AM [facility] Absolute Lymphocytes 2.0 0.8 - 5.3 10e9/L 07/15/2018 7:29 AM [facility] Absolute Monocytes 0.5 0.0 - 1.3 10e9/L 07/15/2018 7:29 AM [facility] Absolute Eosinophils 0.2 0.0 - 0.7 10e9/L 07/15/2018 7:29 AM [facility] Absolute Basophils 0.0 0.0 - 0.2 10e9/L 07/15/2018 7:29 AM [facility] Abs Immature Granulocytes 0.1 0 - 0.4 10e9/L 07/15/2018 7:29 AM [facility] Absolute Nucleated RBC 0.0 07/15/2018 7:29 AM [facility] Blood specimen (specimen) 07/15/2018 6:56 AM CDT 07/15/2018 6:57 AM CDT us Jenny Urena PA-C LAB - BLOOD ORDERABLES Fi nal Result [facility] [address] [id number] [phone] * (ABNORMAL) Basic metabolic panel (07/15/2018 6:56 AM CDT) Sodium 139 133 - 144 mmol/L 07/15/2018 7:31 AM [facility] Potassium 4.6 3.4 - 5.3 mmol/L 07/15/2018 7:31 AM [facility] Chloride 107 94 - 109 mmol/L 07/15/2018 7:31 AM [facility] Carbon Dioxide 25 20 - 32 mmol/L 07/15/2018 7:38 AM [facility] Anion Gap 7 3 - 14 mmol/L 07/15/2018 7:38 AM [facility] Glucose 115(H) 70 - 99 mg/dL 07/15/2018 7:38 AM [facility] Urea Nitrogen 11 7 - 30 mg/dL 07/15/2018 7:38 AM [facility] Creatinine 0.76 0.66 - 1.25 mg/dL 07/15/2018 7:38 AM [facility] GFR Estimate >90 >60 mL/min/{1. 73_m2} 07/15/2018 7:38 AM [facility] Comment: Non GFR Calc Starting 04/21/2018, serum creatinine based estimated GFR (eGFR) will be calculated using the Chronic Kidney Disease Epidemiology Collaboration (CKD-EPI) equation. GFR Estimate If Black >90 >60 mL/min/{1. 73_m2} 07/15/2018 7:38 AM [facility] Comment: GFR Calc Starting 04/21/2018, serum creatinine based estimated GFR (eGFR) will be calculated using the Chronic Kidney Disease Epidemiology Collaboration (CKD-EPI) equation. Calcium 8.6 8.5 - 10.1 mg/dL 07/15/2018 7:38 AM [facility] Blood specimen (specimen) 07/15/2018 6:56 AM CDT 07/15/2018 6:57 AM T us Jenny Urena PA-C LAB - BLOOD ORDERABLES Fi nal Result [facility] [address] [place] [address], [facility] [phone] from Last 3 Months or Most Recently Relevant to Health Maintenance Insurance * Guarantor: [employer] Account Type Relation to Patient Date of Phone Billing Address Employer Related Employer [employer] [address] [place] [address] * Guarantor: [employer] Account Type Relation to Patient Date of Phone Billing Address Employer Related Employer [address] [id number] CC[employer] Advance Directives For more information, please contact: [phone] * Full Code (Latest Code Status on File) Date Activated Date Inactivated Comments 07/14/2018 4:08 PM 07/15/2018 2:16 PM Question Answer Comments Code status determined by: Discussion with gi nt/legal decision maker Care Teams Silk Weaver Relationship Specialty Start Date End Date No Ref-Primary, Physician PCP - General 07/14/18
--- OUTSIDE RECORDS SUMMARY | 2024-05-15 21:46 | XMS_ITS | Clinical Summary ---
Author Organization [facility] Address [address] [place] [address] Care Team Providers Care Contracting Engineer Name Role Phone No Ref-Primary, Physician Primary [...] Dates Next Due TDAP Vaccine (Adacel) 09/03/2010 Family History Medical History Relation Comments Cancer Maternal Aunt cancer in spine Cancer Maternal Uncle Unsure type Relation Status Comments Brother Alive Daughter Alive Father Alive Maternal Aunt Maternal Grandfather Alive Maternal Grandmother Alive Maternal Uncle Mother Alive Paternal Grandfather Paternal Grandmother Sister Alive Son Alive Social History Tobacco Use Types Packs/Day Years [...] on file 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 Gender Identity Not on file Sexual Orientation Not on file Last Filed Vital Signs Vital Sign Reading Time Taken Comments Blood Pressure 110/82 10/02/2022 4:26 PM CDT Pulse 90 10/02/2022 4:26 PM CDT Temperature 36.9 C (98.4 F) 10/02/2022 4:26 PM CDT Respiratory Rate 18 10/02/2022 4:26 PM CDT Oxygen Saturation 96% 10/02/2022 4:26 PM CDT Inhaled Oxygen Concentration - - Weight 113.9 kg (251 lb 1.7 oz) 023 12:00 PM CDT Height 180.3 cm (5' 11) 10/02/2022 12: 00 PM CDT Body Mass Index 35.02 10/02/2022 12:00 PM CDT Plan of Treatment Health Maintenance Due Date Last Done Comments ADVANCE CARE PLANNING 1972 ALT 1972 ANNUAL REVIEW OF HM ORDERS 1972 CT COLONOGRAPHY 1972 FIT 1972 FLEX SIG 1972 HF ACTION PLAN 1972 LIPID 1972 TSH W/FREE T4 REFLEX 1972 sDNA (Cologuard) 1972 YEARLY PREVENTIVE VISIT 01/14/1975 COLONOSCOPY 01/14/1982 COLORECTAL CANCER SCREENING 01/14/1982 HIV SCREENING 01/14/1987 HEPATITIS C SCREENING 01/14/1990 HEPATITIS B IMMUNIZATION (1 of 3 - 19+ 3-dose series) 01/14/1991 Pneumococcal Vaccine: 50+ Years (1 of 2 - PCV) 01/14/1991 BMP 2019 07/15/2018, 07/14/2018 CBC 07/16/2019 07/15/2018, 07/03, 07/14/2018, Additional history exists GLUCOSE 07/15/2021 07/15/2018, 07/14/2018 LUNG CANCER SCREENING 01/14/2022 01/01/2013 ZOSTER IMMUNIZATION (1 of 2) 01/14/2022 PHQ-2 (once per calendar year) 2023 10/17/2020 COVID-19 Vaccine ( season) 2024 INFLUENZA VACCINE (#1) 2024 DTAP/TDAP/TD IMMUNIZATION (4 - Td or Tdap) 11/11/2026 11/11/2016, 09/03/2010, 08/27/2006 RSV VACCINE (1 - 1-dose 75+ series) 01/14/2047 HPV IMMUNIZATION Aged Out No longer e ligible based on patient's age to complete this topic MENINGITIS IMMUNIZATION Aged Out No l onger eligible based on patient's age to complete this topic RSV MONOCLONAL ANTIBODY Aged Out No l onger eligible based on patient's age to complete this topic Procedures Procedure Name Priority Date/Time Associated Diagnosis [...] 4.0 - 11.0 10e9/L 07/15/2018 7:29 AM [facility] RBC Count 6.43(H) 4.4 - 5.9 10e12/L 07/15/2018 7:29 AM [facility] Hemoglobin 19.5(H) 13.3 - 17.7 g/dL 07/15/2018 7:29 AM [facility] Hematocrit 57.1(H) 40.0 - 53.0 % 07/15/2018 7:29 AM [facility] MCV 89 78 - 100 fl 07/15/2018 7:29 AM [facility] MCH 30.3 26.5 - 33.0 pg 07/15/2018 7:29 AM [facility] MCHC 34.2 31.5 - 36.5 g/dL 07/15/2018 7:29 AM [facility] RDW 12.8 10.0 - 15.0 % 07/15/2018 7:29 AM [facility] Platelet Count 238 150 - 450 10e9/L 07/15/2018 7:29 AM [facility] Diff Method Automated Method 07/15/2018 7:29 AM [facility] % Neutrophils 60.7 % 07/15/2018 7:29 AM [facility] % Lymphocytes 28.3 % 07/15/2018 7:29 AM [facility] % Monocytes 7.1 % 07/15/2018 7:29 AM [facility] % Eosinophils 2.6 % 07/15/2018 7:29 AM [facility] % Basophils 0.6 % 07/15/2018 7:29 AM [facility] % Immature Granulocytes 0.7 % 07/15/2018 7:29 AM [facility] Nucleated RBCs 0 0 /100 07/15/2018 7:29 AM [facility] Absolute Neutrophil 4.4 1.6 - 8.3 10e9/L 07/15/2018 7:29 AM [facility] Absolute Lymphocytes 2.0 0.8 - 5.3 10e9/L 07/15/2018 7:29 AM [facility] Absolute Monocytes 0.5 0.0 - 1.3 10e9/L 07/15/2018 7:29 AM [facility] Absolute Eosinophils 0.2 0.0 - 0.7 10e9/L 07/15/2018 7:29 AM [facility] Absolute Basophils 0.0 0.0 - 0.2 10e9/L 07/15/2018 7:29 AM [facility] Abs Immature Granulocytes 0.1 0 - 0.4 10e9/L 07/15/2018 7:29 AM [facility] Absolute Nucleated RBC 0.0 07/15/2018 7:29 AM [facility] Blood specimen (specimen) 07/15/2018 6:56 AM CDT 07/15/2018 6:57 AM CDT us Jenny Urena PA-C LAB - BLOOD ORDERABLES Fi nal Result Performing Organization Address City/State/[facility] Co de Phone Number [facility] [address] [place], [place] [address] [phone] * (ABNORMAL) Basic metabolic panel (07/15/2018 6:56 AM CDT) Sodium 139 133 - 144 mmol/L 07/15/2018 7:31 AM [facility] Potassium 4.6 3.4 - 5.3 mmol/L 07/15/2018 7:31 AM [facility] Chloride 107 94 - 109 mmol/L 07/15/2018 7:31 AM [facility] Carbon Dioxide 25 20 - 32 mmol/L 07/15/2018 7:38 AM [facility] Anion Gap 7 3 - 14 mmol/L 07/15/2018 7:38 AM [facility] Glucose 115(H) 70 - 99 mg/dL 07/15/2018 7:38 AM [facility] Urea Nitrogen 11 7 - 30 mg/dL 07/15/2018 7:38 AM [facility] Creatinine 0.76 0.66 - 1.25 mg/dL 07/15/2018 7:38 AM [facility] GFR Estimate >90 >60 mL/min/{1. 73_m2} 07/15/2018 7:38 AM [facility] Comment: Non GFR Calc Starting 04/21/2018, serum creatinine based estimated GFR (eGFR) will be calculated using the Chronic Kidney Disease Epidemiology Collaboration (CKD-EPI) equation. GFR Estimate If Black >90 >60 mL/min/{1. 73_m2} 07/15/2018 7:38 AM [facility] Comment: GFR Calc Starting 04/21/2018, serum creatinine based estimated GFR (eGFR) will be calculated using the Chronic Kidney Disease Epidemiology Collaboration (CKD-EPI) equation. Calcium 8.6 8.5 - 10.1 mg/dL 07/15/2018 7:38 AM [facility] Blood specimen (specimen) 07/15/2018 6:56 AM CDT 07/15/2018 6:57 AM CDT Jenny Urena PA-C LAB - BLOOD ORDERABLES Fi nal Result [facility] [address] [place] [address], [facility] [phone] from Last 3 Months or Most Recently Relevant to Health Maintenance Insurance CCN Advance Directives For more information, please contact: [phone] * Full Code (Latest Code Status on File) Date Activated Date Inactivated Comments 07/14/2018 4:08 PM 07/15/2018 2:16 PM Question Answer Comments Code status determined by: Discussion with maxe nt/legal decision maker Care Teams Contracting Engineer Relationship Specialty Start Date End Date No Ref-Primary, Physician PCP - General 07/14/18
--- OUTSIDE RECORDS SUMMARY | 2024-05-15 21:46 | XMS_ITS | Continuity of Care Document ---
Author Name [email or web address] Address Unknown Organization Unknown Address Unknown Procedures FILTER APPLIED:Only known Procedures with Onset Date within the last 5 years Procedure Date Procedure Provider Additional Inform ation Status EMERGENCY DEPT VISIT LOW MDM (12081) Completed APPLY FOREARM SPLINT (04702) Completed Encounters FILTER APPLIED:Only known Encounters with Admission Date within the last 5 years Encounter Location Admission Discharge Billing Code [facility] [id number] [id number] [facility] Outpatient
--- OUTSIDE RECORDS SUMMARY | 2024-05-15 21:46 | XMS_ITS | Encounter Summary ---
Author Name [facility] [place] [facility] [place] Address [address] [place] [address] Care Team Providers Care Trader Fixed Income Name Role Phone ALOK GUTIERREZ Primary Care Provider Unavailabl e Selected Encounter This section includes the information on record at [place] for the Encounter. Date/Time Encounter Type Encounter Description Reason Provider Source Apr 14, 2024 11:00 AM CASE MANAGEMENT HUD/VASH INDIV ICD-10-CM Z59.9 Problem related to housing and economic circumstances, MISBAH Haskins Angelina Encounter Template Text not used by [place] Assessments - Encounter Diagnoses This section includes the primary and secondary diagnoses documented for the Encounter. Date/Time Primary/Secondary Diagnosis Diagnosis Name Provider Source Apr 14, 2024 03:00 PM PRIMARY Problem related to housing and economic circumstances, MISBAH Haskins ([facility]) Social History: Smoking Status (Most current) and Tobacco Use (All prior to encounter date) This section includes the most current, and the historical, smoking and tobacco- related health factors from the [place] facility where the Encounter took place. Current Smoking Status This section includes the most current smoking, or tobacco-related health factor, from the [place] facility where the Encounter took place. Date/Time Current Smoking Status Comment Facil ity Oct 28, 2023 09:45 AM VA-TOBACCO DOESNT USE WI 30 MIN WAKEUP [place] ([facility]) Tobacco Use History This section includes a history of the smoking, or tobacco-related health factors, that were collected on or before the date of the Encounter. The data comes from the [place] facility where the Encounter took place. 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 This section includes ALL of a patient's completed or amended [place] Advance and Rescinded Directives. The entries below indicate that a directive exists for the patient, but an actual copy is not included with this document. The data comes from all [place] facilities. Date Advance Directives Provider Source Mar 05, 2024 ADVANCE DIRECTIVE DISCUSSION MISBAH SILVESTRE ([facility]) September 04, 2022 ADVANCE DIRECTIVE DISCUSSION DARVIN DEE ALL [facility] Encounter Notes: All associated encounter notes This section contains the clinical notes associated to the Encounter. 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 Isis completed an application for the apartment. Kenisha will be reaching to isis once she knows if he's been approved for the unit. 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 /goldie/ PRAFUL CORONEL, CASTILLO QUIROGA BANQUET PREP COOK Signed: 04/14/2024 15:00 Receipt Acknowledged By: 04/17/2024 12:42 /goldie/ VIK DUTTON CLINICAL BANQUET PREP COOK,MISBAH KIMBALL ([facility])
--- OUTSIDE RECORDS SUMMARY | 2024-05-15 21:46 | XMS_ITS | Encounter Summary ---
Author Organization [facility] Address [address] [place] [address] Care Team Providers Care Senior Engineering Tech Name Role Phone Alex Lambert MD Primary Care Provider [phone]- [phone] Encounter Details Date Type Department Care Team (Late st Contact Info) Description 10/24/2009 11:00 AM [facility] [address] [place] [address] Alex Lambert MD [facility] [address] [place] [address] Social History Tobacco Use Types Packs/Day Years Used Date Smoking Tobacco: Every Day Cigarettes 0.2 25 Smokeless Tobacco: Current Chew Alcohol Use Standard Drinks/Week Comments Yes 0 (1 standard drink = 0.6 oz pur e alcohol) beer daily Sex and Gender Information Value Date Recorded Sex Assigned at Not on file 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
--- OUTSIDE RECORDS SUMMARY | 2024-05-15 21:46 | XMS_ITS | Encounter Summary ---
Author Organization [facility] Address [address] [place] [address] Care Team Providers Care Store Consultant Name Role Phone Alex Lambert MD Primary Care Provider [phone]- [phone] Encounter Details Date Type Department Care Team (Late st Contact Info) Description 11/06/2009 9:09 AM T [facility] in [facility] [address] [place] [address] Alex Lambert MD [facility] [address] [place] [address] Social History Tobacco Use Types Packs/Day Years Used Date Smoking Tobacco: Every Day Cigarettes 0.2 25 Smokeless Tobacco: Current Chew Alcohol Use Standard Drinks/Week Comments Yes 0 (1 standard drink = 0.6 oz pur e alcohol) beer daily Sex and Gender Information Value Date Recorded Sex Assigned at Not on file 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
--- OUTSIDE RECORDS SUMMARY | 2024-05-15 21:46 | XMS_ITS | Clinical Summary ---
Author Organization [facility] Address [place], [place] [address] Care Team Providers Care Cured Meats Supervisor Name Role Phone Paramjit Morrison MD Unavailable Pcp, No Primary Care Provider Unavailabl e Allergies Active Allergy Reactions Criticality Noted Date Comments Diatrizoate Allergen Throat Swelling/Closing 01/01/2013 01/01/13 Patient c/o throat tightness and mild difficulty swallowing. Penicillins *Unknown 07/17/2005 Medications aspirin chewable 81 mg chewable tablet Take 81 mg by mouth once daily with a meal. Active ergocalciferol (VITAMIN D) 50,000 unit capsuleIndication s:Vitamin D deficiency Take 1 capsule by mouth once weekly. 12 capsule 1 3 Active CPAP autoCPAP, heated humidifier, mask, headgear, filters and tubing. Pressure: 4-15cm/H2O Length of Need: 99 1 unit 0 3 Active Cholecalciferol, Vitamin D3, (VITAMIN D-3) 5,000 unit tabIndications:Vi tamin D deficiency Take 1 tablet by mouth once daily. 90 tablet 1 4 Active simvastatin (ZOCOR) 20 mg tabletIndications :Hypercholesterem ia TAKE ONE TABLET BY MOUTH AT BEDTIME 30 tablet 0 4 Active lisinopril-hydroc hlorothiazide, 20-25 mg, (PRINZIDE, ZESTORETIC) 20-25 mg per tabletIndications :Unspecified essential hypertension TAKE 1 TABLET BY MOUTH ONCE DAILY 30 tablet 0 4 Active Active Problems Problem Noted Date Diagnosed Date Hypercholesteremia 03/24/2013 Overview (03/26/2013): Due to embolism of upper extremity, goal LDL is <100 NINFA 03/09/2013 AHI-20, positional 03/22/2013 Anxiety state, unspecified 02/24/2013 Vitamin D deficiency 02/08/2013 Carpal tunnel syndrome of left wrist 12/29/2012 History of Mantoux positive, untreated 3 EMBOLISM AND THROMBOSIS, UPPER EXTREMITY 005 HYPERTENSION - ESSENTIAL Resolved Problems Problem Noted Date Diagnosed Date Resolved Date Hypertriglyceridemia 02/04/2013 013 ABNORMAL FINDINGS, ELEVATED BP W/O HTN 10/20/2012 TINEA PEDIS 10/20/2012 PLANTAR FASCIITIS 10/20/2012 Immunizations Name Administration Dates Next Due Tdap 08/27/2006 Family History Medical History Relation Name Comments Psychiatric illness Father Depressi on Cancer-prostate Maternal Grandfather Hypertension Mother Stroke Paternal Grandmother Diabetes No Family History Heart Disease No Family History Thyroid Disease No Family History Relation Name Status Comments Father Maternal Grandfather Mother Paternal Grandmother Social History Tobacco Use Types Packs/Day Years Used Date Smoking Tobacco: Every Day Cigarettes Smokeless Tobacco: Current Chew Tobacco Cessation:Ready to Q uit: No; Counseling Given: Yes Comments:chew Alcohol Use Standard Drinks/Week Comments No 30 (1 standard drink = 0.6 oz pu re alcohol) Quit 11/05/2012 Sex and Gender Information Value Date Recorded Sex Assigned at Not on file Legal Sex Male 5:17 AM [employer]CH[employer] Gender Identity Not on file Sexual Orientation Not on file Occupation Industry Job Start Date Job End Date [employer] Not on file Not on file Not on file Obstetrics History Last Filed Vital Signs Vital Sign Reading Time Taken Comments Blood Pressure 166/99 12/03/2023 11:45 AM CDT Pulse 116 12/03/2023 12:16 PM CDT Temperature 37.2 C (98.9 F) 12/03/2023 11:45 AM CDT Respiratory Rate 20 12/03/2023 11:45 AM CDT Oxygen Saturation 93% 12/03/2023 12:16 PM CDT Inhaled Oxygen Concentration - - Weight 111.1 kg (245 lb) 12/03/2023 11:45 AM CDT Height 180.3 cm (5' 11) 12/03/2023 11:45 AM CDT Body Mass Index 34.17 12/03/2023 11:45 AM CDT Plan of Treatment Health Maintenance Due Date Last Done Comments Depression screening for age 12+ 1984 HIV for age 15-65 01/14/1987 BMI (ht and wt on same day) for age 18+ 01/14/1990 Hepatitis C screening for age 18-79 01/14/1990 Tetanus booster 08/27/2016 08/27/2006 Colonoscopy through age 75 01/14/2017 Lipids for age 45-75 05/25/2018 05/25/2013, 03/24/2013, 11/02/2012, Additional history exists Zoster (shingles) series for age 50+ (1 of 2) 01/14/2022 COVID-19 vaccine series ( - 2023- season) 2024 Influenza for age 50-64 01/04/2024 Tdap Completed 08/27/2006 Pneumococcal series for age 6-49 Aged Out No longer eligible based on patient's age to complete this topic Procedures Procedure Name Priority Date/Time Associated Diagnosis Comments LIPID PANEL W REFLEX MEASURED LDL Routine 05/25/2013 9:42 AM [employer]CH[employer] Hypercholesteremia from Last 3 Months or Most Recently Relevant to Health Maintenance Results * (ABNORMAL) LIPID PANEL W REFLEX MEASURED LDL (05/25/2013 9:42 AM [employer] TECHNICIAN) CHOLESTEROL,TOTA L 182 100 - 199 mg/dL TRIGLYCERIDES 217(H) <150 mg/dL [facility] HDL CHOLESTEROL 33(L) >40 mg/dL [facility] CHOL/HDL RATIO 5.52(H) <4.50 [facility] NON-HDL CHOLESTEROL 149 Undefined mg/dL LDL CHOLESTEROL 106 <131 mg/dL [facility] Blood specimen (specimen) BLOOD SPECIMEN / Unknown 05/25/2013 9:42 AM [employer] TECH[employer]ICIAN 05/25/2013 9:33 AM [employer] TECHNICIAN us Brenna Piedra MD CHEMISTRY Final R esult [facility] [place] [id number] [place] [id number] from Last 3 Months or Most Recently Relevant to Health Maintenance Insurance [employer] Care Teams Cured Meats Supervisor Relationship Specialty Start Date End Date Pcp, No . PCP - General 11/02/13 Paramjit Morrison MD [address] [facility] [address] [place] [address] [place] [address] Consulting Physician Cardiovascular Disease 12/29/12
[2024-05-15 21:48] VITALS: BP 157/103; PULSE 113; RESP 18; TEMP 36.1; O2SAT 97; BMI 33.5
[2024-05-15 22:14] LABS: Appearance Urine Clear (Clear); Bilirubin Urine Negative (Negative); Color Urine Yellow (Yellow); Glucose Urine 3+ (Negative); Ketones Urine 1+ (Negative)
[2024-05-15 22:15] LABS: Blood Urine Negative (Negative); Leukocyte Esterase Urine Negative (Negative); Nitrite Urine Negative (Negative); Protein Urine Negative (Negative); Specific Gravity Urine < 1.005 (1.000-1.030); Urobilinogen Urine 0.2 (0.2-1.0)
[2024-05-15 22:16] LABS: RBC Urine 0-2 (0-2); WBC Urine 0-2 (0-5)
--- NOTE | 2024-05-15 22:22 | ED.GENADULT ---
HPI - General Adult General Chief complaint: Unspecified Complaint, Adult Stated complaint: Diabetic problems, lethargy Time Seen by Provider: 05/15/24 22:12 History of Present Illness HPI narrative: [facility] pt had diabetic problems. Pt did not take blood sugar. Pt reports excessive drinking and has a dry mouth . This has been going for two weeks. Pt states he has not taken his medications for past few days?some are cardiac meds. Increased weakness and lethargic per patient. 54-year-old man presenting to the emergency department with concern of not feeling well and possible diabetes. Last week had some sort of a flu bug along with his partner presenting here today. Has been drinking a lot of Efrain-Aid lately. Has been urinating a lot over the last week as well. Apparently [facility] be [facility] somewhat for diabetes. He does admit to dry mouth at this point. Not having any pain. Recently also has been seeing some intermittent blurring of vision and just in particular is just been very tired. Does have a diagnosis of heart failure he says and has not been taking his usual medications or at least irregularly over the last couple of weeks as has not been feeling well. No vomiting. No diarrhea. No fever Related Data Previous Rx's ?Medication ?Instructions ?Recorded ketorolac 10 mg tablet 10 mg PO Q8H 5 days #15 tabs 05/04/23 methylprednisolone 4 mg tablets in See Rx Instructions PO .COMPLEX 05/04/23 a dose pack (Medrol (Efra)) #21 ea metformin 500 mg tablet 500 mg PO BID #30 tabs 05/16/24 Allergies Allergy/AdvReac Type Severity Reaction Status Date / Time penicillin Allergy Intermediate Hives Uncoded 05/04/23 16:17 Review of Systems Status of ROS: Reports: 6 or more systems reviewed and unremarkable except as noted in History and below Exam Narrative: Exam Narrative: Fully alert easily engage in conversation. Does appear a little tired however. Twitching around the left eye. Dry mouth stained with blue Efrain-Aid perhaps on his tongue. Oropharynx a little sticky. Protuberant abdomen. Nontender. Extremities are without edema. Well-perfused. Heart is tachycardic in a regular rhythm. Well-perfused. I do not small ketones. Const: Vital Signs, click to edit/add: Vital Signs - 24 hr 05/15/24 21:48 Temperature 97.0 F L Pulse Rate [Left P ulse Oximeter] 113 H Respiratory Rate 18 Blood Pressure [Ri ght Upper Arm] 157/103 H Pulse Oximetry 97 Oxygen Delivery Me thod Room Air Documenting provider has reviewed patient's vital signs: yes Course Vital Signs Vital signs: Initial Vital Signs Temperature 97.0 F L 05/15/24 21:48 Temperature Source Temporal Artery Scan 05/15/24 21:48 Pulse Rate 113 H 05/15/24 21:48 Pulse Rhythm Regular 05/15/24 21:48 Respiratory Rate 18 05/15/24 21:48 Blood Pressure 157/103 H 05/15/24 21:48 Blood Pressure Mean 121 H 05/15/24 21:48 Blood Pressure Position Sitting 05/15/24 21:48 Pulse Oximetry 97 05/15/24 21:48 Oxygen Delivery Method Room Air 05/15/24 21:48 Vital Signs Temperature 97.0 F L 05/15/24 21:48 Pulse Rate 113 H 05/15/24 21:48 Respiratory Rate 18 05/15/24 21:48 Blood Pressure 157/103 H 05/15/24 21:48 Pulse Oximetry 97 05/15/24 21:48 Oxygen Delivery Method Room Air 05/15/24 21:48 Temperature 97.0 F L 05/15/24 21:48 Pulse Rate 113 H 05/15/24 21:48 Respiratory Rate 18 05/15/24 21:48 Blood Pressure 157/103 H 05/15/24 21:48 Pulse Oximetry 97 05/15/24 21:48 Oxygen Delivery Method Room Air 05/15/24 21:48 Medications Administered Medications: Discontinued Medications Generic Name Dose Route Start Last Admin Trade Name Freq PRN Reason Stop Dose Admin Sodium Chloride 1,000 mls @ 1,000 mls/hr 05/15/24 22:32 05/16/24 00:54 0.9 % Sodium Chloride 1000 Ml IV 05/15/24 23:31 Infused .Q1H ONE Infusion Sodium Chloride 1,000 mls @ 1,000 mls/hr 05/15/24 23:50 05/16/24 00:44 0.9 % Sodium Chloride 1000 Ml IV 05/16/24 00:49 Infused .Q1H ONE Infusion Insulin Human Regular 12 unit 05/15/24 23:23 05/15/24 23:49 Insulin Regular, Human 100 Unit/Ml Vial IVP 05/15/24 23:24 12 unit ONCE ONE Administration Metformin HCl 500 mg 05/16/24 00:28 05/16/24 00:41 Metformin 500 Mg Tablet PO 05/16/24 00:29 500 mg ONCE ONE Administration Medical Decision Making MDM Narrative Medical decision making narrative: Check labs for source of fatigue. Certainly could be some combination of dehydration, specific viral illness, anemia, urinary tract infection. Suspicion high for diabetes. Labs with rather high blood sugar of a little over 1100. Normal lactate is reassuring. Corrected sodium would be 138 More of a nonketotic hyperglycemia. Certainly is dehydrated. Does have 1+ ketones on his urine. I am proposing admission but he is reluctant to do so [facility]. Will be ordering another L of fluids. Is pending test/effect of insulin bolus. Initiating metformin here in the emergency department. Can follow up per his preference for further recommendations. No longer tachycardic on reexamination. Blood pressure remained elevated but again has not been taking his usual medications. Encouraged to do so. Hemoglobin A1c was pending at time of departure. This is over 13 as expected. May well need insulin therapy as well. See patient discharge plan for further discussion I understand you wish not to be admitted here and to pursue further treatment through the [facility] outpatient. We are initiating you on metformin. This hopefully can decrease your insulin resistance and therefore increase your body's uptake of sugar so that less is floating around loose in your body. Much of the treatment for diabetes is through dietary management; frankly most of a should be eating is if we have diabetes, and exercise. Please take your other medications as prescribed. Medical Records Medical records reviewed: Yes I reviewed the patient's medical records Lab Data Lab results reviewed: Yes I reviewed the patient's lab results Labs: Lab Results 05/15/24 05/15/24 05/15/24 Range/Units 22:00 22:05 22:15 WBC (4.50-11.00) K/uL RBC (4.30-5.90) m/uL Hgb (13.5-17.5) gm/dL Hct (37.0-53.0) % MCV (80-100) fL MCH (26-34) pg MCHC (32-36) gm/dL RDW Coeff of Zhane (11.5-15.5) % Plt Count (140-440) K/uL Neut % (Auto) (42.0-72.0) % Lymph % (Auto) (20-44) % Stevens % (Auto) (0.0-11.0) % Eos % (Auto) (0.0-7.0) % Baso % (Auto) (0.0-3.0) % Neut # (Auto) (1.7-7.0) K/uL Lymph # (Auto) (0.90-2.90) K/uL Stevens # (Auto) (0.00-0.90) K/UL Eos # (Auto) (0.00-0.50) K/uL Baso # (Auto) (0.00-0.30) K/uL Abs Immat Gran (auto) (0.00-0.30) K/uL Imm/Tot Granulo (auto) % VBG pH (7.32-7.43) VBG pCO2 (40-50) mmHG VBG pO2 (25-47) mmHG VBG HCO3 (21-28) mmol/L Sodium Cancelled Potassium Cancelled Chloride Cancelled Carbon Dioxide Cancelled Anion Gap Cancelled BUN Cancelled Creatinine Cancelled Estimated Creat Clear Cancelled Estimated GFR Cancelled Glucose Cancelled Hemoglobin A1c (0-5.6) % Lactate (0.5-1.9) mmol/L Calcium Cancelled Total Bilirubin Cancelled Direct Bilirubin (0.0-0.5) mg/dL AST Cancelled ALT Cancelled Alkaline Phosphatase Cancelled Troponin I (0.01-0.04) ng/mL NT-Pro-B Natriuret Pep pg/mL Total Protein Cancelled Albumin Cancelled Urine Color Yellow (Yellow) Urine Appearance Clear (Clear) Urine pH 6.0 (5.0-8.5) Ur Specific Stewart < 1.005 (1.000-1.030) Urine Protein Negative (Negative) Urine Glucose (UA) 3+ A (Negative) Urine Ketones 1+ A (Negative) Urine Blood Negative (Negative) Urine Nitrite Negative (Negative) Urine Bilirubin Negative (Negative) Urine Urobilinogen 0.2 (0.2-1.0) Ur Leukocyte Esterase Negative (Negative) Urine RBC 0-2 (0-2) Urine WBC 0-2 (0-5) Ur Squamous Epith Cells None (None-Few) Urine Bacteria None (None) SARS-CoV-2 (PCR) Negative SARS-CoV-2 (Negative) Influenza Type A (PCR) Negative PCR FLU A (Negative) Influenza Type B (PCR) Negative PCR FLU B (Negative) Lab Acknowledgement 05/15/24 05/15/24 Range/Units 22:32 23:00 WBC 4.97 (4.50-11.00) K/uL RBC 5.99 H (4.30-5.90) m/uL Hgb 18.5 H (13.5-17.5) gm/dL Hct 51.9 (37.0-53.0) % MCV 87 (80-100) fL MCH 31 (26-34) pg MCHC 36 (32-36) gm/dL RDW Coeff of Zhane 12.2 (11.5-15.5) % Plt Count 234 (140-440) K/uL Neut % (Auto) 62.0 (42.0-72.0) % Lymph % (Auto) 26.2 (20-44) % Stevens % (Auto) 8.2 (0.0-11.0) % Eos % (Auto) 1.8 (0.0-7.0) % Baso % (Auto) 0.4 (0.0-3.0) % Neut # (Auto) 3.08 (1.7-7.0) K/uL Lymph # (Auto) 1.30 (0.90-2.90) K/uL Stevens # (Auto) 0.40 (0.00-0.90) K/UL Eos # (Auto) 0.09 (0.00-0.50) K/uL Baso # (Auto) 0.02 (0.00-0.30) K/uL Abs Immat Gran (auto) 0.07 (0.00-0.30) K/uL Imm/Tot Granulo (auto) 1.4 % VBG pH 7.374 (7.32-7.43) VBG pCO2 46 (40-50) mmHG VBG pO2 49.5 H (25-47) mmHG VBG HCO3 27 (21-28) mmol/L Sodium 122 L* Potassium 4.4 Chloride 86 L Carbon Dioxide 25 Anion Gap 11 BUN 14 Creatinine 0.6 Estimated Creat Clear 153.39 Estimated GFR 116 Glucose 1127 H* Hemoglobin A1c 13.7 H (0-5.6) % Lactate 1.6 (0.5-1.9) mmol/L Calcium 8.8 Total Bilirubin 1.3 Direct Bilirubin 0.5 (0.0-0.5) mg/dL AST 31 ALT 36 Alkaline Phosphatase 159 H Troponin I < 0.01 L (0.01-0.04) ng/mL NT-Pro-B Natriuret Pep 83 pg/mL Total Protein 6.7 Albumin 4.0 Urine Color (Yellow) Urine Appearance (Clear) Urine pH (5.0-8.5) Ur Specific Stewart (1.000-1.030) Urine Protein (Negative) Urine Glucose (UA) (Negative) Urine Ketones (Negative) Urine Blood (Negative) Urine Nitrite (Negative) Urine Bilirubin (Negative) Urine Urobilinogen (0.2-1.0) Ur Leukocyte Esterase (Negative) Urine RBC (0-2) Urine WBC (0-5) Ur Squamous Epith Cells (None-Few) Urine Bacteria (None) SARS-CoV-2 (PCR) (Negative) Influenza Type A (PCR) (Negative) Influenza Type B (PCR) (Negative) Lab Acknowledgement Test Added Discharge Plan Discharge Clinical Impression: Diabetic hyperosmolar non-ketotic state, Diabetes Patient Disposition: Home w/ Parent or Adult Condition: Improved Additional Instructions: I understand you wish not to be admitted here and to pursue further treatment through the [facility] outpatient. We are initiating you on metformin. This hopefully can decrease your insulin resistance and therefore increase your body's uptake of sugar so that less is floating around loose in your body. Much of the treatment for diabetes is through dietary management; frankly most of a should be eating is if we have diabetes, and exercise. Please take your other medications as prescribed. Prescriptions: New metformin 500 mg tablet 500 mg PO BID Qty: 30 0RF No Action ketorolac 10 mg tablet 10 mg PO Q8H 5 Days Qty: 15 0RF methylprednisolone [Medrol (Efra)] 4 mg tablets,dose pack See Rx Instructions .ROUTE .COMPLEX Qty: 21 0RF Rx Instructions: orally per package directions Follow Up/Referrals: Provider,Not a Local [Primary Care Provider] - Stand Alone Forms: [employer] Info Instructions
[2024-05-15 22:45] LABS: PCR FLU A Negative PCR FLU A (Negative); PCR FLU B Negative PCR FLU B (Negative); SARS PCR* Negative SARS-CoV-2 (Negative)
--- NOTE | 2024-05-15 22:50 | ED.NURSE ---
critical lab results verbally read to MD. Colvin 122, Blood Sugar 1108.
[2024-05-15 23:03] LABS: Basophils Absolute Auto 0.02 K/uL (0.00-0.30); Basophils Percent Auto 0.4 % (0.0-3.0); Eosinophils Absolute Auto 0.09 K/uL (0.00-0.50); Eosinophils Percent Auto 1.8 % (0.0-7.0); Hematocrit 51.9 % (37.0-53.0); Hemoglobin* 18.5 gm/dL (13.5-17.5); Immature Granulocytes Abs Auto 0.07 K/uL (0.00-0.30); Immature Granulocytes Pct Auto 1.4 %; Lymphocytes Percent Auto 26.2 % (20-44); Mean Corpuscular HGB Conc 36 gm/dL (32-36); Mean Corpuscular Hemoglobin 31 pg (26-34); Mean Corpuscular Volume 87 fL (80-100); Monocytes Percent Auto 8.2 % (0.0-11.0); Neutrophils Absolute Auto 3.08 K/uL (1.7-7.0); Platelet Count* 234 K/uL (140-440); RDW Coefficient of Variation % 12.2 % (11.5-15.5); Red Blood Count 5.99 m/uL (4.30-5.90); White Blood Count* 4.97 K/uL (4.50-11.00)
[2024-05-15 23:04] LABS: HCO3 VBG 27 mmol/L (21-28); PCO2 VBG 46 mmHG (40-50); PO2 VBG 49.5 mmHG (25-47); pH VBG 7.374 (7.32-7.43)
[2024-05-15 23:05] LABS: Slide Review Reflex No
--- OUTSIDE RECORDS SUMMARY | 2024-05-15 23:05 | XMS_ITS | Continuity of Care Document ---
Author Name [facility] Organization [facility] Care Team Providers Care Inbound Call Center Agent Name Role Phone [facility] Unavailable Unavailable Problems Combined list of problems from Department of Defense and Veterans Affairs facilities. It does not include entries that were removed or entered in error. Problem Status Onset Date Problem Type Date of Resolution Comments Source CHF - Congestive Heart Failure ([facility] [id number]) Active Condition September 06, 2021 Entered By: INDERJIT NOWAK Comment: EF 30% , LV hypokinesis ECHO 08/30/21 [facility] ([facility]) HTN - Hypertension ([facility] [id number]) Active Condition [place] ([facility]) Multiple premature ventricular complexes Active Condition [facility] Muscle fasciculation Active Condition Jul 18, 2020 Entered By: INDERJIT NOWAK Comment: lt side of face [place] ([facility]) Nicotine dependence Active Condition [place] ([facility]) Obesity Active Condition [place] ([facility]) Sleep apnea Active Condition [place] ([facility]) Thoracic outlet syndrome Active Condition September 06, 2021 Entered By: INDERJIT NOWAK Comment: Had DVT in rt upper extremity in 2012 treated with coumudin [place] ([facility]) Tobacco use Active Condition Jul 18, 2020 Entered By: INDERJIT NOWAK Comment: 1 can /wk [place] ([facility]) Varicose veins Active Condition September Entered By: INDERJIT NOWAK Comment: Rt upper extremity [place] ([facility]) Vertebrobasilar artery syndrome Active Condition September 06, 2021 Entered By: INDERJIT NOWAK Comment: 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 Was recommended to get Botox inj. [place] ([facility]) Diagnosis: ICD-10-CM Z72.0 Tobacco use Active Diagnosis [place] ([facility]) Diagnosis: ICD-10-CM Z59.00 Homelessness unspecified Active Diagnosis [place] ([facility]) Diagnosis: ICD-10-CM Z59.9 Problem related to housing and economic circumstances, unsp Active Diagnosis [place] ([facility]) Diagnosis: ICD-10-CM F32.89 Other specified depressive episodes Active Diagnosis [place] ([facility]) Diagnosis: ICD-10-CM Z71.9 [facility]ing, unspecified [facility] Diagnosis: ICD-10-CM Z00.00 Encntr for general adult medical exam w/o abnormal findings Active Diagnosis [place] ([facility]) Diagnosis: ICD-10-CM I50.22 Chronic systolic (congestive) heart failure Active Diagnosis [facility] Diagnosis: ICD-10-CM Z13.6 Encounter for screening for cardiovascular disorders Active Diagnosis [facility] Diagnosis: ICD-10-CM I50.9 Heart failure, unspecified Active Diagnosis [facility] Diagnosis: ICD-10-CM I50.20 Unspecified systolic (congestive) heart failure Active Diagnosis [facility] Diagnosis: ICD-10-CM Z59.01 Sheltered homelessness Active Diagnosis [facility] Diagnosis: ICD-10-CM Z59.02 Unsheltered homelessness Active Diagnosis [facility] Diagnosis: ICD-10-CM F41.9 Anxiety disorder, unspecified Active Diagnosis [facility] Medications Combined list of outpatient medications from [...] 24 HOURS FROM ALL SOURCES* ORAL 10/02/2023 [id number] VIRA GUTIERREZ [address] ([facility]) ASPIRIN 81MG TAB,CHEWABL E CHEW ONE TABLET BY MOUTH EVERY DAY FOR HEART DISEASE ORAL ACTIVE 09/01/2024 [id number] 4 ME CALLIE NGISTU A 2023 [address] [place] [facility] ATOMOXETINE 40MG CAP TAKE ONE CAPSULE BY MOUTH EVERY DAY FOR ATTENTIO N ORAL ACTIVE 10/28/2024 [id number] VIRA GUTIERREZ [address]23 [address] [place] ([facility]) ATORVASTATI N CA 20MG TAB TAKE ONE TABLET BY MOUTH EVERY DAY FOR CHOLESTE ROL ORAL ACTIVE 10/17/2024 [id number] 4 VIRA GUTIERREZ 2023 [address] [place] [facility] ([facility]) ATORVASTATI N CA 20MG TAB TAKE ONE TABLET BY MOUTH EVERY DAY FOR CHOLESTE ROL ORAL DISCONT INUED 10/02/2023 [id number] VIRA GUTIERREZ E 2022 [address] [place] [address] ([facility]) EMPAGLIFLOZ IN 25MG TAB TAKE ONE-HALF TABLET BY MOUTH EVERY DAY FOR HEART FAILURE ORAL ACTIVE 06/25/2024 [id number] WILMARMS NGA A [address] [facility] METOPROLOL SUCCINATE 200MG TAB,SA TAKE ONE TABLET BY MOUTH EVERY DAY FOR HEART FAILURE ORAL 04/17/2024 [id number] WLIMARMS NGA A [address] [facility] SACUBITRIL 49MG/VALSAR POLLOCK 51MG TAB TAKE 1 TABLET BY MOUTH TWICE A DAY FOR HEART FAILURE ORAL ACTIVE 10/08/2024 [id number] 4 VIRA GUTIERREZ E [address]23 [address] [place] [facility] ([facility]) SILDENAFIL CITRATE 25MG TAB TAKE ONE TABLET BY MOUTH ONCE NEEDED FOR ERECTILE DYSFUNCT ION ORAL ACTIVE 10/28/2024 [id number] VIRA GUTIERREZ E 2023 [address] [place] [facility] ([facility]) SPIRONOLACT ONE 25MG TAB TAKE TWO TABLETS BY MOUTH EVERY DAY FOR HEART FAILURE ORAL 12/13/2023 [id number] WILMARMS NGA A [address] [facility] TORSEMIDE 20MG TAB TAKE ONE TABLET BY MOUTH EVERY DAY FOR EXCESS FLUID ORAL ACTIVE 12/18/2024 [id number] 4 VIRA GUTIERREZ E [address]23 [address] [place] ([facility]) TORSEMIDE 20MG TAB TAKE ONE TABLET BY MOUTH EVERY DAY FOR EXCESS FLUID ORAL DISCONT INUED 12/13/2023 [id number] ELIZABETH URBAN NGA A [address] [facility] Allergies, Adverse Reactions, Alerts Combined list of allergies from Department of Defense and [facility] Affairs facilities. It does not include entries that were removed or entered in error. Substance Category Reaction Severity Reaction type Status Date Reported Comments Source CONTRAST MEDIA Propensity to adverse reactions to drug (finding) Lip swelling active 2 [facility] PENICILLIN Propensity to adverse reactions to drug (finding) Eruption active 2 [facility] Immunizations Combined list of available immunizations from the Department of Defense and Veterans Affairs facilities. 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 TDAP [address] [facility] TDAP [address] [facility] Results Combined list of recent chemistry, hematology and other laboratory results from Department of Defense and Veterans Affairs, ranging from 15 months to all on record, depending upon the facility. Order Name Results Value Reference Range Date Interpretation Specimen Comments Source BNP NATRIURETIC PEPTIDE B [MASS/VOLUM E] IN SERUM OR PLASMA 24 pg/mL <99 - 99 10/27 Specimen Type: PLASMA No comment entered. Ordering Provider: ALOK GUTIERREZ Report Released Date/Time: Oct 28, 2023 10:52 AM Reporting Lab: [facility] [address] Performing Lab: [facility] [address] [place] ([facility]) CBC & DIFF LEUKOCYTES [#/VOLUME] IN BLOOD BY AUTOMATED COUNT 8.29 10*3/u L 4.0 - 11.0 10/27 Specimen Type: BLOOD Comment: Automated Differentia l Performed Ordering Provider: ALOK GUTIERREZ Report Released Date/Time: Oct 28, 2023 10:52 AM Reporting Lab: [facility] [address] Performing Lab: [facility] [address] [place] ([facility]) CBC & DIFF ERYTHROCYTE S [#/VOLUME] IN BLOOD BY AUTOMATED COUNT 6.34 10*6/u L 4.6 - 6.2 10/27 H Specimen Type: BLOOD Comment: Automated Differentia l Performed Ordering Provider: ALOK GUTIERREZ Report Released Date/Time: Oct 28, 2023 10:52 AM Reporting Lab: [facility] [address] Performing Lab: [facility] [address] [place] ([facility]) CBC & DIFF HEMOGLOBIN [MASS/VOLUM E] IN BLOOD 19.9 g/dL 13.5 - 17.9 10/27 H Specimen Type: BLOOD Comment: Automated Differentia l Performed Ordering Provider: ALOK GUTIERREZ Report Released Date/Time: Oct 28, 2023 10:52 AM Reporting Lab: [facility] [address] Performing Lab: [facility] [address] [place] ([facility]) CBC & DIFF HEMATOCRIT [VOLUME FRACTION] OF BLOOD BY AUTOMATED COUNT 57.1 41 - 54 10/27 H Specimen Type: BLOOD Comment: Automated Differentia l Performed Ordering Provider: ALOK GUTIERREZ Report Released Date/Time: Oct 28, 2023 10:52 AM Reporting Lab: [facility] [address] Performing Lab: [facility] [address] [place] ([facility]) CBC & DIFF MCV [ENTITIC VOLUME] BY AUTOMATED COUNT 90.1 fL 80 - 100 10/27 Specimen Type: BLOOD Comment: Automated Differentia l Performed Ordering Provider: ALOK GUTIERREZ Report Released Date/Time: Oct 28, 2023 10:52 AM Reporting Lab: [facility] [address] Performing Lab: [facility] [address] [place] ([facility]) CBC & DIFF MCH [ENTITIC MASS] BY AUTOMATED COUNT 31.4 pg 27 - 33 10/27 Specimen Type: BLOOD Comment: Automated Differentia l Performed Ordering Provider: ALOK GUTIERREZ Report Released Date/Time: Oct 28, 2023 10:52 AM Reporting Lab: [facility] [address] Performing Lab: [facility] [address] [place] ([facility]) CBC & DIFF MCHC [MASS/VOLUM E] BY AUTOMATED COUNT 34.9 g/dL 32.0 - 37.5 10/27 Specimen Type: BLOOD Comment: Automated Differentia l Performed Ordering Provider: ALOK GUTIERREZ Report Released Date/Time: Oct 28, 2023 10:52 AM Reporting Lab: [facility] [address] Performing Lab: [facility] [address] [place] ([facility]) CBC & DIFF PLATELETS [#/VOLUME] IN BLOOD BY AUTOMATED COUNT 262 10*3/u L 150 - 400 10/27 Specimen Type: BLOOD Comment: Automated Differentia l Performed Ordering Provider: ALOK GUTIERREZ Report Released Date/Time: Oct 28, 2023 10:52 AM Reporting Lab: [facility] [address] Performing Lab: [facility] [address] [place] ([facility]) CBC & DIFF PLATELET MEAN VOLUME [ENTITIC VOLUME] IN BLOOD BY AUTOMATED COUNT 9.7 fL 7.4 - 10.4 10/27 Specimen Type: BLOOD Comment: Automated Differentia l Performed Ordering Provider: ALOK GUTIERREZ Report Released Date/Time: Oct 28, 2023 10:52 AM Reporting Lab: [facility] [address] Performing Lab: [facility] [address] [place] ([facility]) CBC & DIFF NEUTROPHILS /100 LEUKOCYTES IN BLOOD BY MANUAL COUNT 54.0 40.0 - 80.0 10/27 Specimen Type: BLOOD Comment: Automated Differentia l Performed Ordering Provider: ALOK GUTIERREZ Report Released Date/Time: Oct 28, 2023 10:52 AM Reporting Lab: [facility] [address] Performing Lab: [facility] [address] [place] ([facility]) CBC & DIFF LYMPHOCYTES /100 LEUKOCYTES IN BLOOD BY MANUAL COUNT 33.4 15.0 - 45.0 10/27 Specimen Type: BLOOD Comment: Automated Differentia l Performed Ordering Provider: ALOK GUTIERREZ Report Released Date/Time: Oct 28, 2023 10:52 AM Reporting Lab: [facility] [address] Performing Lab: [facility] [address] [place] ([facility]) CBC & DIFF MONOCYTES/1 00 LEUKOCYTES IN BLOOD BY AUTOMATED COUNT 9.0 2.0 - 12.0 10/27 Specimen Type: BLOOD Comment: Automated Differentia l Performed Ordering Provider: ALOK GUTIERREZ Report Released Date/Time: Oct 28, 2023 10:52 AM Reporting Lab: [facility] [address] Performing Lab: [facility] [address] [place] ([facility]) CBC & DIFF EOSINOPHILS /100 LEUKOCYTES IN BLOOD BY AUTOMATED COUNT 2.4 0.0 - 6.0 10/27 Specimen Type: BLOOD Comment: Automated Differentia l Performed Ordering Provider: ALOK GUTIERREZ Report Released Date/Time: Oct 28, 2023 10:52 AM Reporting Lab: [facility] [address] Performing Lab: [facility] [address] [place] [address] ([facility]) CBC & DIFF BASOPHILS/1 00 LEUKOCYTES IN BLOOD BY MANUAL COUNT 0.8 0.0 - 2.0 10/27 Specimen Type: BLOOD Comment: Automated Differentia l Performed Ordering Provider: ALOK GTUIERREZ Report Released Date/Time: Oct 28, 2023 10:52 AM Reporting Lab: [place] [id number] Performing Lab: [place] [phone] [place] [address] ([facility]) CBC & DIFF ERYTHROCYTE DISTRIBUTIO N WIDTH [RATIO] BY AUTOMATED COUNT 12.7 11.5 - 14.5 10/27 Specimen Type: BLOOD Comment: Automated Differentia l Performed Ordering Provider: ALOK GUTIERREZ Report Released Date/Time: Oct 28, 2023 10:52 AM Reporting Lab: [facility] [address] Performing Lab: [facility] [address] [place] [address] ([facility]) CBC & DIFF LYMPHOCYTES [#/VOLUME] IN BLOOD BY AUTOMATED COUNT 2.77 10*3/u L 1.0 - 4.0 10/27 Specimen Type: BLOOD Comment: Automated Differentia l Performed Ordering Provider: ALOK GUTIERREZ Report Released Date/Time: Oct 28, 2023 10:52 AM Reporting Lab: [facility] [address] Performing Lab: [facility] [address] [place] [address] ([facility]) CBC & DIFF MONOCYTES [#/VOLUME] IN BLOOD BY AUTOMATED COUNT 0.75 10*3/u L 0.1 - 1.0 10/27 Specimen Type: BLOOD Comment: Automated Differentia l Performed Ordering Provider: ALOK GUTIERREZ Report Released Date/Time: Oct 28, 2023 10:52 AM Reporting Lab: [place] [address] Performing Lab: [place] [id number] ([facility]) CBC & DIFF NEUTROPHILS [#/VOLUME] IN BLOOD BY AUTOMATED COUNT 4.47 10*3/u L 2.0 - 7.7 10/27 Specimen Type: BLOOD Comment: Automated Differentia l Performed Ordering Provider: ALOK GUTIERREZ Report Released Date/Time: Oct 28, 2023 10:52 AM Reporting Lab: [place] [address] Performing Lab: [address] ([facility]) CBC & DIFF EOSINOPHILS [#/VOLUME] IN BLOOD BY AUTOMATED COUNT 0.20 10*3/u L 0 - 0.5 10/27 Specimen Type: BLOOD Comment: Automated Differentia l Performed Ordering Provider: ALOK GUTIERREZ Report Released Date/Time: Oct 28, 2023 10:52 AM Reporting Lab: [place] [address] Performing Lab: [address] ([facility]) CBC & DIFF BASOPHILS [#/VOLUME] IN BLOOD BY AUTOMATED COUNT 0.07 10*3/u L 0 - 0.2 10/27 Specimen Type: BLOOD Comment: Automated Differentia l Performed Ordering Provider: ALOK GUTIERREZ Report Released Date/Time: Oct 28, 2023 10:52 AM Reporting Lab: [place] [address] Performing Lab: [address] ([facility]) CBC & DIFF IG(META,MYE LO,PRO) 0.4 10/27 Specimen Type: BLOOD Comment: Automated Differentia l Performed Ordering Provider: ALOK GUTIERREZ Report Released Date/Time: Oct 28, 2023 10:52 AM Reporting Lab: [place] [address] Performing Lab: [address] ([facility]) CBC & DIFF IMMATURE GRANULOCYTE S [PRESENCE] IN BLOOD BY AUTOMATED COUNT 0.03 10*3/u L 0 - 0.1 10/27 Specimen Type: BLOOD Comment: Automated Differentia l Performed Ordering Provider: ALOK GUTIERREZ Report Released Date/Time: Oct 28, 2023 10:52 AM Reporting Lab: [facility] [address] Performing Lab: [facility] [address] [place] ([facility]) COMPREHEN SIVE METABOLIC PANEL+MG CREATININE [MASS/VOLUM [...] Oct 28, 2023 10:52 AM Reporting Lab: [facility] [address] Performing Lab: [facility] [address] [place] ([facility]) COMPREHEN SIVE METABOLIC PANEL+MG UREA NITROGEN [...] Oct 28, 2023 10:52 AM Reporting Lab: [facility] [address] Performing Lab: [facility] [address] [place] ([facility]) COMPREHEN SIVE METABOLIC PANEL+MG GLUCOSE [MASS/VOLUM [...] Oct 28, 2023 10:52 AM Reporting Lab: [facility] [address] Performing Lab: [facility] [address] [place] ([facility]) COMPREHEN SIVE METABOLIC PANEL+MG SODIUM [MOLES/VOLU ME] IN SERUM OR PLASMA 140 mmol/L 136 - 145 06/25 /2024 Specimen Type: PLASMA Comment: Elevated triglycerid e result from a non-fasting specimen should be interpreted with caution. A fasting panel is recommended for accurate triglycerid es when trigs are >200 from a non-fasting specimen. Ordering Provider: ALOK GUTIERREZ Report Released Date/Time: Oct 28, 2023 10:52 AM Reporting Lab: [address] Performing Lab: [address] ([facility]) COMPREHEN SIVE METABOLIC PANEL+MG POTASSIUM [MOLES/VOLU [...] Oct 28, 2023 10:52 AM Reporting Lab: [place] [id number] Performing Lab: [place] [phone] [place] ([facility]) COMPREHEN SIVE METABOLIC PANEL+MG CHLORIDE [MOLES/VOLU [...] Oct 28, 2023 10:52 AM Reporting Lab: [facility] [address] Performing Lab: [facility] [address] [place] [address] ([facility]) COMPREHEN SIVE METABOLIC PANEL+MG CARBON DIOXIDE, [...] Oct 28, 2023 10:52 AM Reporting Lab: [facility] [address] Performing Lab: [facility] [address] [place] ([facility]) COMPREHEN SIVE METABOLIC PANEL+MG CALCIUM [MASS/VOLUM [...] Oct 28, 2023 10:52 AM Reporting Lab: [facility] [address] Performing Lab: [facility] [address] [place] ([facility]) COMPREHEN SIVE METABOLIC PANEL+MG PROTEIN [MASS/VOLUM [...] Oct 28, 2023 10:52 AM Reporting Lab: [facility] [address] Performing Lab: [facility] [address] [place] ([facility]) COMPREHEN SIVE METABOLIC PANEL+MG ALBUMIN [MASS/VOLUM [...] Oct 28, 2023 10:52 AM Reporting Lab: [facility] [address] Performing Lab: [facility] [address] [place] ([facility]) COMPREHEN SIVE METABOLIC PANEL+MG BILIRUBIN.T OTAL [...] Oct 28, 2023 10:52 AM Reporting Lab: [place] [id number] Performing Lab: [address] ([facility]) COMPREHEN SIVE METABOLIC PANEL+MG MAGNESIUM [MASS/VOLUM [...] Oct 28, 2023 10:52 AM Reporting Lab: [place] [phone] Performing Lab: [address] ([facility]) COMPREHEN SIVE METABOLIC PANEL+MG ANION GAP [...] Oct 28, 2023 10:52 AM Reporting Lab: [facility] [address] Performing Lab: [address] ([facility]) COMPREHEN SIVE METABOLIC PANEL+MG ALKALINE PHOSPHATASE [...] Oct 28, 2023 10:52 AM Reporting Lab: [facility] [address] Performing Lab: [facility] [address] [place] ([facility]) COMPREHEN SIVE METABOLIC PANEL+MG ALANINE AMINOTRANSF [...] Oct 28, 2023 10:52 AM Reporting Lab: [facility] [address] Performing Lab: [facility] [address] [place] ([facility]) COMPREHEN SIVE METABOLIC PANEL+MG ASPARTATE AMINOTRANSF [...] Oct 28, 2023 10:52 AM Reporting Lab: [facility] [address] Performing Lab: [facility] [address] [place] ([facility]) COMPREHEN SIVE METABOLIC PANEL+MG GLOMERULAR FILTRATION [...] Oct 28, 2023 10:52 AM Reporting Lab: [facility] [address] Performing Lab: [facility] [address] [place] ([facility]) HEMOGLOBI N A1C HEMOGLOBIN A1C/HEMOGLO BIN.TOTAL IN [...] Oct 28, 2023 10:52 AM Reporting Lab: [facility] [address] Performing Lab: [address] [place] ([facility]) LIPID PANEL,NON -FASTING CHOLESTEROL [MASS/VOLUM E] [...] Oct 28, 2023 10:52 AM Reporting Lab: [facility] [address] Performing Lab: [facility] [address] [place] ([facility]) LIPID PANEL,NON -FASTING CHOLESTEROL IN HDL [...] Oct 28, 2023 10:52 AM Reporting Lab: [facility] [address] Performing Lab: [facility] [address] [place] ([facility]) LIPID PANEL,NON -FASTING CHOLESTEROL IN LDL [...] Oct 28, 2023 10:52 AM Reporting Lab: [facility] [address] Performing Lab: [address] ([facility]) LIPID PANEL,NON -FASTING CHOLESTEROL IN VLDL [...] Oct 28, 2023 10:52 AM Reporting Lab: [facility] [address] Performing Lab: [place] [phone] [place] [address] ([facility]) LIPID PANEL,NON -FASTING CHOLESTEROL NON HDL [...] Oct 28, 2023 10:52 AM Reporting Lab: [facility] [address] Performing Lab: [facility] [address] [place] ([facility]) LIPID PANEL,NON -FASTING TRIGLYCERID E [MASS/VOLUM E] IN SERUM OR PLASMA 306 mg/dL <149 - 149 10/27 H Specimen Type: PLASMA Comment: Elevated triglycerid e result from a non-fasting specimen should be interpreted with caution. A fasting panel is recommended for accurate triglycerid es when trigs are >200 from a non-fasting specimen. Ordering Provider: AOLK GUTIERREZ Report Released Date/Time: Oct 28, 2023 10:52 AM Reporting Lab: [facility] [address] Performing Lab: [facility] [address] [place] ([facility]) TSH W/REFLEX TO FREE T4 THYROTROPIN [...] Oct 28, 2023 10:52 AM Reporting Lab: [facility] [address] Performing Lab: [facility] [address] [place] ([facility]) BASIC METABOLIC PANEL+MG CREATININE [MASS/VOLUM E] IN SERUM OR PLASMA 0.9 mg/dL 0.7 - 1.2 08/27 Specimen Type: PLASMA No comment entered. Ordering Provider: XUAN URBAN Report Released Date/Time: Apr 17, 2023 10:39 AM Reporting Lab: [facility] [address] Performing Lab: [facility] [address] [place] [facility] BASIC METABOLIC PANEL+MG UREA NITROGEN [MASS/VOLUM E] IN SERUM OR PLASMA 16 mg/dL 8 - 26 08/27 Specimen Type: PLASMA No comment entered. Ordering Provider: XUAN URBAN Report Released Date/Time: Apr 17, 2023 10:39 AM Reporting Lab: [facility] [address] Performing Lab: [facility] [address] [place] [facility] BASIC METABOLIC PANEL+MG GLUCOSE [MASS/VOLUM E] IN SERUM OR PLASMA 222 mg/dL 70 - 100 08/27 H Specimen Type: PLASMA No comment entered. Ordering Provider: XUAN URBAN Report Released Date/Time: Apr 17, 2023 10:39 AM Reporting Lab: [facility] [address] Performing Lab: [facility] [address] [place] [facility] BASIC METABOLIC PANEL+MG SODIUM [MOLES/VOLU ME] IN SERUM OR PLASMA 137 mmol/L 136 - 145 08/27 Specimen Type: PLASMA No comment entered. Ordering Provider: XUAN URBAN Report Released Date/Time: Apr 17, 2023 10:39 AM Reporting Lab: [facility] [address] Performing Lab: [facility] [address] [place] [facility] BASIC METABOLIC PANEL+MG POTASSIUM [MOLES/VOLU ME] IN SERUM OR PLASMA 4.0 mmol/L 3.5 - 5.1 08/27 Specimen Type: PLASMA No comment entered. Ordering Provider: XUAN URBAN A Report Released Date/Time: Apr 17, 2023 10:39 AM Reporting Lab: [facility] [address] Performing Lab: [facility] [address] [place] [facility] BASIC METABOLIC PANEL+MG CHLORIDE [MOLES/VOLU ME] IN SERUM OR PLASMA 105 mmol/L 98 - 107 08/27 Specimen Type: PLASMA No comment entered. Ordering Provider: XUAN URBAN A Report Released Date/Time: Apr 17, 2023 10:39 AM Reporting Lab: [facility] [address] Performing Lab: [facility] [address] [place] [facility] BASIC METABOLIC PANEL+MG CARBON DIOXIDE, TOTAL [MOLES/VOLU ME] IN SERUM OR PLASMA 23 mmol/L 22 - 29 08/27 Specimen Type: PLASMA No comment entered. Ordering Provider: XUAN URBAN A Report Released Date/Time: Apr 17, 2023 10:39 AM Reporting Lab: [facility] [address] Performing Lab: [facility] [address] [place] [facility] BASIC METABOLIC PANEL+MG CALCIUM [MASS/VOLUM E] IN SERUM OR PLASMA 9.3 mg/dL 8.4 - 10.2 08/27 Specimen Type: PLASMA No comment entered. Ordering Provider: XUAN URBAN A Report Released Date/Time: Apr 17, 2023 10:39 AM Reporting Lab: [facility] [address] Performing Lab: [facility] [address] [place] [facility] BASIC METABOLIC PANEL+MG MAGNESIUM [MASS/VOLUM E] IN SERUM OR PLASMA 2.2 mg/dL 1.6 - 2.6 08/27 Specimen Type: PLASMA No comment entered. Ordering Provider: XUAN URBAN Report Released Date/Time: Apr 17, 2023 10:39 AM Reporting Lab: [facility] [address] Performing Lab: [facility] [address] [place] [facility] BASIC METABOLIC PANEL+MG ANION GAP IN SERUM OR PLASMA 9 mmol/L 5 - 15 08/27 Specimen Type: PLASMA No comment entered. Ordering Provider: XUAN URBAN Report Released Date/Time: Apr 17, 2023 10:39 AM Reporting Lab: [facility] [address] Performing Lab: [facility] [address] [place] [facility] BASIC METABOLIC PANEL+MG GLOMERULAR FILTRATION RATE/1.73 SQ M.PREDICTED [VOLUME RATE/AREA] IN SERUM, PLASMA OR BLOOD BY CREATININE- BASED FORMULA (CKD-EPI 2020) >90 60 08/27 Specimen Type: PLASMA No comment entered. Ordering Provider: XUAN URBAN Report Released Date/Time: Apr 17, 2023 10:39 AM Reporting Lab: [facility] [address] Performing Lab: [facility] [address] [place] [facility] BNP NATRIURETIC PEPTIDE B [MASS/VOLUM E] IN SERUM OR PLASMA 85 pg/mL <99 - 99 08/27 Specimen Type: PLASMA No comment entered. Ordering Provider: XUAN URBAN Report Released Date/Time: Apr 17, 2023 10:39 AM Reporting Lab: [facility] [address] Performing Lab: [facility] [address] [place] [facility] CBC LEUKOCYTES [#/VOLUME] IN BLOOD BY AUTOMATED COUNT 6.83 10*3/u L 4.0 - 11.0 08/27 Specimen Type: BLOOD No comment entered. Ordering Provider: XUAN URBAN Report Released Date/Time: Apr 17, 2023 10:39 AM Reporting Lab: [facility] [address] Performing Lab: [facility] [address] [place] [facility] CBC ERYTHROCYTE S [#/VOLUME] IN BLOOD BY AUTOMATED COUNT 5.85 10*6/u L 4.6 - 6.2 08/27 Specimen Type: BLOOD No comment entered. Ordering Provider: XUAN URBAN Report Released Date/Time: Apr 17, 2023 10:39 AM Reporting Lab: [facility] [address] Performing Lab: [facility] [address] [place] [facility] CBC HEMOGLOBIN [MASS/VOLUM E] IN BLOOD 18.7 g/dL 13.5 - 17.9 08/27 H Specimen Type: BLOOD No comment entered. Ordering Provider: XUAN URBAN Report Released Date/Time: Apr 17, 2023 10:39 AM Reporting Lab: [facility] [address] Performing Lab: [facility] [address] [place] [facility] CBC HEMATOCRIT [VOLUME FRACTION] OF BLOOD BY AUTOMATED COUNT 52.4 41 - 54 08/27 Specimen Type: BLOOD No comment entered. Ordering Provider: XUAN URBAN Report Released Date/Time: Apr 17, 2023 10:39 AM Reporting Lab: [facility] [address] Performing Lab: [facility] [address] [place] [facility] CBC MCV [ENTITIC VOLUME] BY AUTOMATED COUNT 89.6 fL 80 - 100 08/27 Specimen Type: BLOOD No comment entered. Ordering Provider: XUAN URBAN Report Released Date/Time: Apr 17, 2023 10:39 AM Reporting Lab: [facility] [address] Performing Lab: [facility] [address] [place] [facility] CBC MCH [ENTITIC MASS] BY AUTOMATED COUNT 32.0 pg 27 - 33 08/27 Specimen Type: BLOOD No comment entered. Ordering Provider: XUAN URBAN Report Released Date/Time: Apr 17, 2023 10:39 AM Reporting Lab: [facility] [address] Performing Lab: [facility] [address] [place] [facility] CBC MCHC [MASS/VOLUM E] BY AUTOMATED COUNT 35.7 g/dL 32.0 - 37.5 08/27 Specimen Type: BLOOD No comment entered. Ordering Provider: XUAN URBAN Report Released Date/Time: Apr 17, 2023 10:39 AM Reporting Lab: [facility] [address] Performing Lab: [facility] [address] [facility] IS [facility] CBC PLATELETS [#/VOLUME] IN BLOOD BY AUTOMATED COUNT 216 10*3/u L 150 - 400 08/27 Specimen Type: BLOOD No comment entered. Ordering Provider: XUAN URBAN Report Released Date/Time: Apr 17, 2023 10:39 AM Reporting Lab: [facility] [address] Performing Lab: [facility] [address] [facility] CBC PLATELET MEAN VOLUME [ENTITIC VOLUME] IN BLOOD BY AUTOMATED COUNT 9.4 fL 7.4 - 10.4 08/27 Specimen Type: BLOOD No comment entered. Ordering Provider: XUAN URBAN Report Released Date/Time: Apr 17, 2023 10:39 AM Reporting Lab: [facility] [address] Performing Lab: [facility] [address] [facility] CBC ERYTHROCYTE DISTRIBUTIO N WIDTH [RATIO] BY AUTOMATED COUNT 12.9 11.5 - 14.5 08/27 Specimen Type: BLOOD No comment entered. Ordering Provider: XUAN URBAN Report Released Date/Time: Apr 17, 2023 10:39 AM Reporting Lab: [facility] [address] Performing Lab: [facility] [address] [facility] IS [facility] BNP NATRIURETIC PEPTIDE B [MASS/VOLUM E] IN SERUM OR PLASMA 54 pg/mL <99 - 99 12/12 Specimen Type: PLASMA No comment entered. Ordering Provider: XUAN URBAN Report Released Date/Time: Aug 20, 2022 10:51 AM Reporting Lab: [facility] [address] Performing Lab: [facility] [address] [facility] [address] [facility] Vital Signs Combined list of inpatient and [...] ([facility]) SYSTOLIC BLOOD PRESSURE 138 08/28/2023 09:47:57 [facility] DIASTOLIC BLOOD PRESSURE 89 08/28/2023 09:47:57 [facility] PULSE OXIMETRY 95 08/28/2023 09:47:57 [facility] WEIGHT 256.8 08/28/2023 09:47:57 [facility] BMI 36kg/m2 08/28/2023 09:47:57 [facility] PAIN 0 08/28/2023 09:47:57 [facility] PULSE 80 08/28/2023 09:47:57 [facility] RESPIRATION 18 08/28/2023 09:47:57 MINNicole [facility] Encounters Combined list of: 1) Encounters from Department of Veterans Affairs facilities going back up to thelast 18 months. 2) Encounters from the Department of Defense facilities going back up to 280 months. Location Location Details Encounter Type Encounter Number Reason For Visit Attending Provider ADM Date DC Date Status Disposition Source [place] [facility] PRO PHONE CALL 5-10 MIN [id number] Diagnos is: ICD-10- CM F41.9 Anxiety disorde r, unspeci fied
DOMITILA TILLEY IEL J 11/20 [facility] Outpatient Encounter [id number] 11/21 [facility] Outpatient Encounter [id number] ADE LEZAMA AHAT 11/22 [facility] IS [facility] HC PRO PHONE CALL 5-10 MIN [id number] Diagnos is: ICD-10- CM F41.9 Anxiety disorde r, unspeci fied
DOMITILA TILLEY IEL J 11/27 [facility] IS [facility] Outpatient Encounter [id number] 11/29 [facility] IS [facility] CASE MANAGEMENT [id number] Diagnos is: ICD-10- CM F41.9 Anxiety disorde r, unspeci fied
DOMITILA TILLEY IEL J 12/05 [facility] IS [facility] ELECTROCAR DIOGRAM COMPLETE [id number] Diagnos is: ICD-10- CM Z13.6 Encount er for screeni ng for cardiov ascular disorde rs
Pat NEAL O 12/12 [facility] OFFICE O/P EST HI 40-54 MIN [id number] Diagnos is: ICD-10- CM I50.20 Unspeci fied systoli c (conges tive) heart failure
ABHAY URBAN TT A 12/12 [facility] IS [facility] CASE MANAGEMENT [id number] Diagnos is: ICD-10- CM F41.9 Anxiety disorde r, unspeci fied
DOMITILA TILLEY IEL J 12/25 [place] [facility] [place] [facility] Outpatient Encounter [id number] 01/08 [place] [facility] [place] [facility] Outpatient Encounter [id number] 01/24 [place] [facility] [place] [facility] Outpatient Encounter [id number] 02/25 [place] [facility] [place] [facility] Outpatient Encounter [id number] 04/11 [place] [facility] [place] [facility] ELECTROCAR DIOGRAM COMPLETE [id number] Diagnos is: ICD-10- CM Z13.6 Encount er for screeni ng for cardiov ascular disorde rs
ESTRADA,TIMOTHY REL 04/17 [facility] OFFICE O/P EST HI 40-54 MIN [id number] Diagnos is: ICD-10- CM I50.9 Heart failure , unspeci fied
ABHAY URBAN TT A 04/17 [place] [facility] PRO PHONE CALL 5-10 MIN [id number] Diagnos is: ICD-10- CM Z59.02 Unshelt ered homeles sness<b r/> Hugo DELGADO TEPPAWEL L 04/22 [place] [facility] [place] [facility] [place]ONE CALL 11-20 MIN [id number] Diagnos is: ICD-10- CM Z59.02 Unshelt ered homeles sness<b r/> Hugo DELGADO TEPHANIE L 04/22 [place] [facility] CASE MANAGEMENT [id number] Diagnos is: ICD-10- CM Z59.02 Unshelt ered homeles sness<b r/> SANDYHugo SALCIDO 04/29 [place] [facility] [place] [facility] En[facility] [id number] 05/07 [place] [facility] [place] [facility] En[place] [id number] Barrington OQUENDO 05/07 [place] [facility] [place] [facility] En[facility] [id number] 05/13 [place] [facility] [place] [facility] En[place] [id number] 05/13 [place] [facility] [place] [facility] [place] En[place] [id number] 05/16 [place] [facility] [place] [facility] [place] En[place] [id number] ROSHNI GUTIERREZ 05/20 [place] [facility] [facility] [place] [facility] PRO PHONE CALL 11-20 MIN [id number] Diagnos is: ICD-10- CM Z59.01 [facility]<b r/> Hugo DELGADO 05/23 [place] [facility] [facility] [place] [facility] En[facility] [id number] 05/26 [place] [facility] [place] [facility] En[place] [id number] 06/03 [place] [facility] [place] [facility] En[place] [id number] 06/18 [place] [facility] [place] [facility] [place] En[place] [id number] 07/02 [place] [facility] [place] [facility] [place] En[place] [id number] 07/15 [place] [facility] [place] [facility] [place] En[place] [id number] 07/21 [place] [facility] [place] [facility] [place] En[place] [id number] 08/14 [facility] TTE W/DOPPLER COMPLETE [id number] Diagnos is: ICD-10- CM I50.20 Unspeci fied systoli c (conges tive) heart failure
ASHIA RICE NZI 08/27 [facility] ELECTROCAR DIOGRAM REPORT [id number] Diagnos is: ICD-10- CM Z13.6 Encount er for screeni ng for cardiov ascular disorde rs
Pat NEAL O 08/27 [facility] OFFICE O/P EST HI 40 MIN [id number] Diagnos is: ICD-10- CM I50.9 Heart failure , unspeci fied
SIMEGNicole,MEN GISTU A 08/27 [facility] EXT ECG>48HR<7 D RECORDING [id number] Diagnos is: ICD-10- CM Z13.6 Encount er for screeni ng for cardiov ascular disorde rs
IMAN COTTON 08/27 [facility] PRO PHONE CALL 5-10 MIN [id number] Diagnos is: ICD-10- CM I50.22 Chronic systoli c (conges tive) heart failure
SIMSOREN,CAMRYN GISTU A 08/28 [facility] Outpatient Encounter [id number] 09/25 [facility] ([facility]) OFFICE O/P EST LOW 20 MIN [id number] Diagnos is: ICD-10- CM Z00.00 Encntr for general adult medical exam w/o abnorma l finding s
ROSHNI GUTIERREZ 10/27 [facility] ([facility]) [facility] Outpatient Encounter [id number] ROSHNI GUTIERREZ 10/27 [place] [facility] ([facility]) PSYTX W PT 30 MINUTES [id number] Diagnos is: ICD-10- CM Z71.9 Physician Aide ing, unspeci fied
CHEN WU 10/27 [facility]) [place] ([facility]) Outpatient Encounter [id number] 10/27 [facility] [place] [facility] Outpatient Encounter [id number] 10/28 [place] [facility] [place] [facility] Outpatient Encounter [id number] 10/28 [place] [facility] ([facility]) PSYTX W PT 30 MINUTES [id number] Diagnos is: ICD-10- CM F32.89 Other specifi ed depress nayeli episode s
CHEN WU 11/16 [facility] [place] [place] [facility] Outpatient Encounter [id number] 11/23 [place] [facility] Outpatient Encounter [id number] 12/01 [facility] [place] [facility] Outpatient Encounter [id number] 12/03 [place] [facility] [place] [facility] Outpatient Encounter [id number] 12/04 [place] [facility] [place] [facility] Outpatient Encounter [id number] 12/04 [place] [facility] [place] [facility] Outpatient Encounter [id number] NAS SCHAEFER ONCATRACHITO A 12/04 [place] [facility] [place] [facility] Outpatient Encounter [id number] FREDDY XAVIER 12/05 [facility] Outpatient Encounter [id number] 12/07 [facility] Outpatient Encounter [id number] 12/21 [facility] ([facility]) PSYCH DIAGNOSTIC EVALUATION [id number] Diagnos is: ICD-10- CM Z72.0 Tobacco use<br/ > SILVESTRE,ASHLE Y M 03/05 [facility] [id number] Diagnos is: ICD-10- CM Z59.9 Problem related to housing and economi c circums tances, unsp
SILVESTRE,ASHLE Y M 03/25 [facility] ([facility]) CASE MANAGEMENT [id number] Diagnos is: ICD-10- CM Z59.9 Problem related to housing and economi c circums tances, unsp
SILVESTRE,ASHLE Y M 04/06 [facility] ([facility]) HC PRO PHONE CALL 21-30 MIN [id number] Diagnos is: ICD-10- CM Z59.9 Problem related to housing and economi c circums tances, unsp
SILVESTRE,ASHLE Y M 04/09 [place] [facility] ([facility]) [facility]) CASE MANAGEMENT [id number] Diagnos is: ICD-10- CM Z59.9 Problem related to housing and economi c circums tances, unsp
SILVESTRE,ASHLE Y M 04/14 [facility] ([facility]) [facility]) HC PRO PHONE CALL 21-30 MIN [id number] Diagnos is: ICD-10- CM Z59.00 Homeles sness unspeci fied
SILVESTRE,ASHLE Y M 04/20 [facility] ([facility]) [facility]) HC PRO PHONE CALL 5-10 MIN [id number] Diagnos is: ICD-10- CM Z72.0 Tobacco use<br/ > LEELEE SILVESTRE 05/03 [place] [facility] ([facility]) [place] [facility] Outpatient Encounter [id number] 05/12 [place] [facility] Social History Combined list of available smoking, tobacco, and other social history from Department of Defense and Veterans Affairs facilities. Social History Type Response Date Comment Sour e Tobacco smoking status NHIS VA-TOBACCO USER EVERY DAY 10/28/2023 [place] ([facility]) History of tobacco use VA-TOBACCO DOESNT USE WI 30 MIN WAKEUP 10/28/2023 [facility] ([facility]) History of tobacco use VA-TOBACCO USER EVERY DAY [facility] ([facility]) Advance Directives List of completed, amended, or rescinded Advance Directives on record at Department of Veterans Affairs facilities. An actual copy of the Directive is not included. Date Advance Directive Provider Source 03/05/2024 ADVANCE DIRECTIVE DISCUSSION MISBAH SILVESTRE ([facility]) 09/04/2022 ADVANCE DIRECTIVE DISCUSSION DARVIN DEE [facility]
[2024-05-15 23:06] LABS: Lactate* 1.6 mmol/L (0.5-1.9)
--- OUTSIDE RECORDS SUMMARY | 2024-05-15 23:06 | XMS_ITS | Encounter Summary ---
Author Organization [facility] Address [address] [place] [address] Care Team Providers Care Sinter Machine Operator Name Role Phone Alex Lambert MD Primary Care Provider +1- [phone] Encounter Details Date Type Department Care Team (Late st Contact Info) Description 10/24/2009 11:00 AM [facility] in [facility] [address] [place] [address] Alex Lambert MD [facility] [address] [place] [address] Social History Tobacco Use Types Packs/Day Years Used Date Smoking Tobacco: Every Day Cigarettes 0.2 25 Smokeless Tobacco: Current Chew Alcohol Use Standard Drinks/Week Comments Yes 0 (1 standard drink = 0.6 oz pur e alcohol) beer daily Sex and Gender Information Value Date Recorded Sex Assigned at Not on file 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
--- OUTSIDE RECORDS SUMMARY | 2024-05-15 23:06 | XMS_ITS | Encounter Summary ---
Author Organization [place] Address [address] [place] [address] Care Team Providers Care Concaving Machine Operator Name Role Phone Alex Lambert MD Primary Care Provider +1- [phone] Encounter Details Date Type Department Care Team (Late st Contact Info) Description 11/06/2009 9:09 AM [facility] [address] [place] [address] Alex Lambert MD [facility] [address] [place] [address] Social History Tobacco Use Types Packs/Day Years Used Date Smoking Tobacco: Every Day Cigarettes 0.2 25 Smokeless Tobacco: Current Chew Alcohol Use Standard Drinks/Week Comments Yes 0 (1 standard drink = 0.6 oz pur e alcohol) beer daily Sex and Gender Information Value Date Recorded Sex Assigned at Not on file 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
--- OUTSIDE RECORDS SUMMARY | 2024-05-15 23:06 | XMS_ITS | Clinical Summary ---
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 Gender Identity Not on file Sexual Orientation [...] 4.0 - 11.0 10e9/L 07/15/2018 7:29 AM [facility] RBC Count 6.43(H) 4.4 - 5.9 10e12/L 07/15/2018 7:29 AM [facility] Hemoglobin 19.5(H) 13.3 - 17.7 g/dL 07/15/2018 7:29 AM [facility] Hematocrit 57.1(H) 40.0 - 53.0 % 07/15/2018 7:29 AM [facility] MCV 89 78 - 100 fl 07/15/2018 7:29 AM [facility] MCH 30.3 26.5 - 33.0 pg 07/15/2018 7:29 AM [facility] MCHC 34.2 31.5 - 36.5 g/dL 07/15/2018 7:29 AM [facility] RDW 12.8 10.0 - 15.0 % 07/15/2018 7:29 AM [facility] Platelet Count 238 150 - 450 10e9/L 07/15/2018 7:29 AM [facility] Diff Method Automated Method 07/15/2018 7:29 AM [facility] % Neutrophils 60.7 % 07/15/2018 7:29 AM [facility] % Lymphocytes 28.3 % 07/15/2018 7:29 AM [facility] % Monocytes 7.1 % 07/15/2018 7:29 AM [facility] % Eosinophils 2.6 % 07/15/2018 7:29 AM [facility] % Basophils 0.6 % 07/15/2018 7:29 AM [facility] % Immature Granulocytes 0.7 % 07/15/2018 7:29 AM [facility] Nucleated RBCs 0 0 /100 07/15/2018 7:29 AM [facility] Absolute Neutrophil 4.4 1.6 - 8.3 10e9/L 07/15/2018 7:29 AM [facility] Absolute Lymphocytes 2.0 0.8 - 5.3 10e9/L 07/15/2018 7:29 AM [facility] Absolute Monocytes 0.5 0.0 - 1.3 10e9/L 07/15/2018 7:29 AM [facility] Absolute Eosinophils 0.2 0.0 - 0.7 10e9/L 07/15/2018 7:29 AM [facility] Absolute Basophils 0.0 0.0 - 0.2 10e9/L 07/15/2018 7:29 AM [facility] Abs Immature Granulocytes 0.1 0 - 0.4 10e9/L 07/15/2018 7:29 AM [facility] Absolute Nucleated RBC 0.0 07/15/2018 7:29 AM [facility] Blood specimen (specimen) 07/15/2018 6:56 AM CDT 07/15/2018 6:57 AM CDT us Jenny Urean PA-C LAB - BLOOD ORDERABLES Fi nal Result Performing Organization Address City/State/[facility] Co de Phone Number [facility] [address] [place], [place] [address] [phone] * (ABNORMAL) Basic metabolic panel (07/15/2018 6:56 AM CDT) Sodium 139 133 - 144 mmol/L 07/15/2018 7:31 AM [facility] Potassium 4.6 3.4 - 5.3 mmol/L 07/15/2018 7:31 AM [facility] Chloride 107 94 - 109 mmol/L 07/15/2018 7:31 AM [facility] Carbon Dioxide 25 20 - 32 mmol/L 07/15/2018 7:38 AM [facility] Anion Gap 7 3 - 14 mmol/L 07/15/2018 7:38 AM [facility] Glucose 115(H) 70 - 99 mg/dL 07/15/2018 7:38 AM [facility] Urea Nitrogen 11 7 - 30 mg/dL 07/15/2018 7:38 AM [facility] Creatinine 0.76 0.66 - 1.25 mg/dL 07/15/2018 7:38 AM [facility] GFR Estimate >90 >60 mL/min/{1. 73_m2} 07/15/2018 7:38 AM [facility] Comment: Non GFR Calc Starting 04/21/2018, serum creatinine based estimated GFR (eGFR) will be calculated using the Chronic Kidney Disease Epidemiology Collaboration (CKD-EPI) equation. GFR Estimate If Black >90 >60 mL/min/{1. 73_m2} 07/15/2018 7:38 AM [facility] Comment: GFR Calc Starting 04/21/2018, serum creatinine based estimated GFR (eGFR) will be calculated using the Chronic Kidney Disease Epidemiology Collaboration (CKD-EPI) equation. Calcium 8.6 8.5 - 10.1 mg/dL 07/15/2018 7:38 AM [facility] Blood specimen (specimen) 07/15/2018 6:56 AM CDT 07/15/2018 6:57 AM CDT Jenny Urena PA-C LAB - BLOOD ORDERABLES Fi nal Result [facility] [address] [place] [address], [facility] [phone] from Last 3 Months or Most Recently Relevant to Health Maintenance Insurance CCN Advance Directives For more information, please contact: [phone] * Full Code (Latest Code Status on File) Date Activated Date Inactivated Comments 07/14/2018 4:08 PM 07/15/2018 2:16 PM Question Answer Comments Code status determined by: Discussion with maxe nt/legal decision maker Care Teams Tunnel Kiln Firer Relationship Specialty Start Date End Date No Ref-Primary, Physician PCP - General 07/14/18
--- OUTSIDE RECORDS SUMMARY | 2024-05-15 23:06 | XMS_ITS | Continuity of Care Document ---
Author Name [facility] Address Unknown Organization Unknown Address Unknown Procedures FILTER APPLIED:Only known Procedures with Onset Date within the last 5 years Procedure Date Procedure Provider Additional Inform ation Status EMERGENCY DEPT VISIT LOW MDM (93521) Completed APPLY FOREARM SPLINT (20357) Completed Encounters FILTER APPLIED:Only known Encounters with Admission Date within the last 5 years Encounter Location Admission Discharge Billing Code Agent [facility] [id number] [facility] Outpatient
--- OUTSIDE RECORDS SUMMARY | 2024-05-15 23:06 | XMS_ITS | Referral Summary ---
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 Gender Identity Not on file Sexual [...] 4.0 - 11.0 10e9/L 07/15/2018 7:29 AM [facility] RBC Count 6.43(H) 4.4 - 5.9 10e12/L 07/15/2018 7:29 AM [facility] Hemoglobin 19.5(H) 13.3 - 17.7 g/dL 07/15/2018 7:29 AM [facility] Hematocrit 57.1(H) 40.0 - 53.0 % 07/15/2018 7:29 AM [facility] MCV 89 78 - 100 fl 07/15/2018 7:29 AM [facility] MCH 30.3 26.5 - 33.0 pg 07/15/2018 7:29 AM [facility] MCHC 34.2 31.5 - 36.5 g/dL 07/15/2018 7:29 AM [facility] RDW 12.8 10.0 - 15.0 % 07/15/2018 7:29 AM [facility] Platelet Count 238 150 - 450 10e9/L 07/15/2018 7:29 AM [facility] Diff Method Automated Method 07/15/2018 7:29 AM [facility] % Neutrophils 60.7 % 07/15/2018 7:29 AM [facility] % Lymphocytes 28.3 % 07/15/2018 7:29 AM [facility] % Monocytes 7.1 % 07/15/2018 7:29 AM [facility] % Eosinophils 2.6 % 07/15/2018 7:29 AM [facility] % Basophils 0.6 % 07/15/2018 7:29 AM [facility] % Immature Granulocytes 0.7 % 07/15/2018 7:29 AM [facility] Nucleated RBCs 0 0 /100 07/15/2018 7:29 AM [facility] Absolute Neutrophil 4.4 1.6 - 8.3 10e9/L 07/15/2018 7:29 AM [facility] Absolute Lymphocytes 2.0 0.8 - 5.3 10e9/L 07/15/2018 7:29 AM [facility] Absolute Monocytes 0.5 0.0 - 1.3 10e9/L 07/15/2018 7:29 AM [facility] Absolute Eosinophils 0.2 0.0 - 0.7 10e9/L 07/15/2018 7:29 AM [facility] Absolute Basophils 0.0 0.0 - 0.2 10e9/L 07/15/2018 7:29 AM [facility] Abs Immature Granulocytes 0.1 0 - 0.4 10e9/L 07/15/2018 7:29 AM [facility] Absolute Nucleated RBC 0.0 07/15/2018 7:29 AM [facility] Blood specimen (specimen) 07/15/2018 6:56 AM CDT 07/15/2018 6:57 AM CDT us Jenny Urena PA-C LAB - BLOOD ORDERABLES Fi nal Result [facility] [address] [place] [id number] [phone] * (ABNORMAL) Basic metabolic panel (07/15/2018 6:56 AM CDT) Sodium 139 133 - 144 mmol/L 07/15/2018 7:31 AM [facility] Potassium 4.6 3.4 - 5.3 mmol/L 07/15/2018 7:31 AM [facility] Chloride 107 94 - 109 mmol/L 07/15/2018 7:31 AM [facility] Carbon Dioxide 25 20 - 32 mmol/L 07/15/2018 7:38 AM [facility] Anion Gap 7 3 - 14 mmol/L 07/15/2018 7:38 AM [facility] Glucose 115(H) 70 - 99 mg/dL 07/15/2018 7:38 AM [facility] Urea Nitrogen 11 7 - 30 mg/dL 07/15/2018 7:38 AM [facility] Creatinine 0.76 0.66 - 1.25 mg/dL 07/15/2018 7:38 AM [facility] GFR Estimate >90 >60 mL/min/{1. 73_m2} 07/15/2018 7:38 AM [facility] Comment: Non GFR Calc Starting 04/21/2018, serum creatinine based estimated GFR (eGFR) will be calculated using the Chronic Kidney Disease Epidemiology Collaboration (CKD-EPI) equation. GFR Estimate If Black >90 >60 mL/min/{1. 73_m2} 07/15/2018 7:38 AM [facility] Comment: GFR Calc Starting 04/21/2018, serum creatinine based estimated GFR (eGFR) will be calculated using the Chronic Kidney Disease Epidemiology Collaboration (CKD-EPI) equation. Calcium 8.6 8.5 - 10.1 mg/dL 07/15/2018 7:38 AM [facility] Blood specimen (specimen) 07/15/2018 6:56 AM CDT 07/15/2018 6:57 AM T us Jenny Urena PA-C LAB - BLOOD ORDERABLES Fi nal Result [facility] [address] [place] [address], [facility] [phone] from Last 3 Months or Most Recently Relevant to Health Maintenance Insurance * Guarantor: [employer] Account Type Relation to Patient Date of Phone Billing Address Employer Related Employer [employer] [address] [place] [address] * Guarantor: [employer] Account Type Relation to Patient Date of Phone Billing Address Employer Related Employer [address] [id number] CC[employer] Advance Directives For more information, please contact: [phone] * Full Code (Latest Code Status on File) Date Activated Date Inactivated Comments 07/14/2018 4:08 PM 07/15/2018 2:16 PM Question Answer Comments Code status determined by: Discussion with gi nt/legal decision maker Care Teams Supervisor Game Farm Relationship Specialty Start Date End Date No Ref-Primary, Physician PCP - General 07/14/18
--- OUTSIDE RECORDS SUMMARY | 2024-05-15 23:06 | XMS_ITS | Clinical Summary ---
Author Organization [employer] [facility] Address [place], [place] [address] Care Team Providers Care Engine Cleaner Name Role Phone Paramjit Morrison MD Unavailable [phone] Pcp, No Primary Care Provider Unavailabl e [...] on file Legal Sex Male 5:17 AM STOVE REFINISHER Gender Identity Not on file Sexual Orientation Not on file Occupation Industry Job Start Date Job End Date [employer] Not on file Not [...] REFLEX MEASURED LDL Routine 05/25/2013 9:42 AM STOVE REFINISHER Hypercholesteremia from Last 3 Months or Most Recently Relevant to Health Maintenance Results * (ABNORMAL) LIPID PANEL W REFLEX MEASURED LDL (05/25/2013 9:42 AM STOVE REFINISHER) CHOLESTEROL,TOTA L 182 100 - 199 mg/dL [facility] TRIGLYCERIDES 217(H) <150 mg/dL [facility] HDL CHOLESTEROL 33(L) >40 mg/dL [facility] CHOL/HDL RATIO 5.52(H) <4.50 [facility] NON-HDL CHOLESTEROL 149 Undefined mg/dL [facility] LDL CHOLESTEROL 106 <131 mg/dL [facility] Blood specimen (specimen) BLOOD SPECIMEN / Unknown 05/25/2013 9:42 AM STOVE REFINISHER 05/25/2013 9:33 AM STOVE REFINISHER us Brenna Piedra MD CHEMISTRY Final R esult [facility] INTERNAL ZIP [id number] [place] [phone] from Last 3 Months or Most Recently Relevant to Health Maintenance Insurance [employer] Care Teams Engine Cleaner Relationship Specialty Start Date End Date Pcp, No . PCP - General 11/02/13 Paramjit Morrison MD [address] [facility] [address] [place] [address] [place] [address] Consulting Physician Cardiovascular Disease 12/29/12
[2024-05-15 23:08] LABS: Alanine Aminotransferase* 36 U/L (4-50); Alkaline Phosphatase* 159 U/L (40-150); Anion Gap 11 mEq/L (7-15); Aspartate Amino Transferase* 31 U/L (12-35); Bilirubin Direct* 0.5 mg/dL (0.0-0.5); Bilirubin Total* 1.3 mg/dL (0.1-1.5); Blood Urea Nitrogen* 14 mg/dL (7-30); Calcium* 8.8 mg/dL (8.4-10.6); Carbon Dioxide* 25 mmol/L (20-32); Chloride* 86 mmol/L (96-114); Creatinine* 0.6 mg/dL (0.5-1.5); Est. Creatinine Clearance* 153.39; Estimated Glomerular Filt Rate 116 ml/min; Potassium* 4.4 mmol/L (3.6-5.1); Sodium* 122 mmol/L (135-149); Total Protein* 6.7 g/dL (6.0-8.3); Troponin I* < 0.01 ng/mL (0.01-0.04)
[2024-05-15 23:09] LABS: Glucose* 1127 mg/dL (60-115); NT Pro B Type NatriureticPept* 83 pg/mL
[2024-05-15] MEDS: 0.9 % SODIUM CHLORIDE 1000 ml 1,000 ML IV (23:49)
[2024-05-15] MEDS: INSULIN REGULAR, HUMAN 100 UNIT/ML VIAL 12 UNIT IVP (23:49)
[2024-05-16] MEDS: 0.9 % SODIUM CHLORIDE 1000 ml 1,000 ML IV (00:02)
[2024-05-16] MEDS: METFORMIN 500 MG TABLET PO (00:41)
[2024-05-16 04:13] LABS: Hemoglobin A1C* 13.7 % (0-5.6)
== END 2024-05-16 00:54 | disposition home or self-care (01) ==
PROVIDERS: Emergency Provider Family Medicine
DX: E11.00 Type 2 diabetes mellitus with hyperosmolarity without nonketotic hyperglycemic-hyperosmolar coma (NKHHC) (principal)
CPT/HCPCS: 36415; 80048; 80053; 80076; 81001; 81003; 82803; 83036; 83605; 83880; 84484; 85025; 87631; 96360; 99284; A9270; J7030